=== PATIENT | female | born 1955 ===

== ENCOUNTER 2016-10-06 11:58 | Inpatient (IN) ==
[2016-10-06] MEDS ORDERED: DILTIAZEM 50 MG/10 ML VIAL IV STA (12:37)
--- NOTE | 2016-10-06 12:40 | Emergency Department Note ---
Pernell Reynolds Rolonda, am scribing for, and in the presence of, Mook Ken MD 12: 38. Suellen Reynolds James D, MD, personally performed the services described in this documentation, ascribed by Neptali Gimenez in my presence, and it is both accurate and complete . Arrival - Arrival Chief Complaint: Chest Pain ED Nursing Triage Note: pt states that she started hurting in the center of her chest today, reports shortness of breath with exertion. Mode of Arrival: Stretcher Limitations: No Limitations Source: Patient, Old Records Reviewed, RN Notes Reviewed - History of Present Illness HPI Narrative: Pt is a 61 y/o who presents to the ED via EMS for further evaluation of mid chest pain with an onset of today. Pt has a PMHX of HTN. She states that she has SOB with the chest pain. SHe confirms associated sxs of heart palpitations but denies N/V and diaphoresis. No other complaint/pain in ED. Onset (ago): hour(s) Consistency: constant Severity: moderate Severity scale (1-10): 4 Allergies/Adverse Reactions: Allergies Allergy/AdvReac Type Severity Reaction Status Date / Time No Known Allergies Allergy Unverified 10/06/16 12:14 Home Medications: Home Medications Medication Instructions Recorded Confirmed Type Albuterol Inhaler [Proventil 2 puff INH DAILY PRN 10/06/16 10/06/16 History Inhaler] Cefuroxime Tab [Ceftin] 250 mg PO BID 10/06/16 10/06/16 History Chlorthalidone 25 mg PO BID 10/06/16 10/06/16 History Fenofibrate [Tricor] 145 mg PO DAILY 10/06/16 10/06/16 History Gabapentin 600 mg PO BEDTIME 10/06/16 10/06/16 History Insulin Detemir [Levemir FlexPen] 45 unit SUBCUT DAILY 10/06/16 10/06/16 History Ipratropium/Albuterol Sulfate 3 ml IH Q4H PRN 10/06/16 10/06/16 History [Iprat-Albut 0.5-3(2.5) mg/3 ml] Metoprolol Succinate Xl [Toprol Xl] 100 mg PO BEDTIME 10/06/16 10/06/16 History Omeprazole [Prilosec] 20 mg PO DAILY 10/06/16 10/06/16 History Saxagliptin HCl [Onglyza] 5 mg PO DAILY 10/06/16 10/06/16 History Review of System - Review of System Constitutional: Absent: diaphoresis Eyes: Absent: pain Head/Ears/Nose/Throat: Absent: earache Respiratory: Present: respiratory distress. Absent: cough Cardiovascular: Present: chest pain, palpitations Gastrointestinal: Present: abdominal pain. Absent: vomiting Genitourinary female: Absent: abnormal menses, dysuria Musculoskeletal: Present: joint swelling. Absent: arm pain, back pain, leg pain , neck pain Skin: Absent: rash Neurological: Absent: headache, numbness Psychiatric: Absent: anxiety Endocrine: Absent: cold intolerance Medical,Surgical,& Family Hx - Medical History Cardio: History of: Hypertension Endocrine: History of: Diabetes Mellitus (NIDDM) - Social History Smoking Status: Never smoker Type of Drug Use: None Exam Vital Signs: Vital Signs Temperature 98.3 F 10/06/16 13:16 Pulse Rate 95 H 10/06/16 13:16 Respiratory Rate 19 10/06/16 13:16 Blood Pressure 132/100 10/06/16 13:16 O2 Sat by Pulse Oximetry 98 10/06/16 13:16 GENERAL: This is a well-nourished well-developed female in no apparent distress. VITAL SIGNS: Reviewed HEENT: Head is atraumatic and normocephalic. Pupils are equal round react to light. Extraocular movements are intact. Oropharynx is benign with moist mucous membranes. NECK: Neck is soft and supple without tenderness. There are no masses. There is no lymphadenopathy. LUNGS: Lungs are clear to auscultation. Chest rises symmetrically. There is no chest wall tenderness. CV: Heart is irregularly irregular without murmurs rubs or gallops. ABDOMEN: Abdomen is soft, nontender to palpation. There are no abdominal abnormal masses palpated. There is no organomegaly. Bowel sounds are present and active. SKIN: Skin is warm and dry. No rash. EXTREMITIES: Patient has full range of motion without tenderness. There is 1+ pedal edema. NEUROLOGIC: Awake alert and oriented 4. Cranial nerves II through XII are grossly intact. Motor is 5 over 5 in all extremities bilaterally. Course Course Narrative: Patient was given Cardizem bolus and infusion in the emergency department. - Consultations Consultation #1: Discussed with Dr. Soria. Patient will be admitted to his service. Initial orders written for him. He will assume patient's care upon arrival to the [facility]. Time: 13:55 Results - Labs CBC & BMP: 10/06/16 12:30 10/06/16 12:30 Lab Results: I have reviewed the patients labs Labs: Laboratory Tests 10/06/16 12:30 Troponin I 0.617 H TSH 3rd Generation 2.920 - EKG EKG results: interpreted by ERMD - Impressions EKG: Atrial fib with RVR, rate 148, normal axis, low voltage QRS. - Diagnostic Findings Procedure: Chest x-ray: image reviewed by me (Mild cardiomegaly, left pleural effusion.) Disposition Clinical Impression: Atrial fibrillation with RVR, Essential hypertension Case discussed with: patient Disposition: Still a Patient Time of Disposition: 13:00
[2016-10-06] MEDS ORDERED: DILTIAZEM 50 MG/10 ML VIAL IV ONE (12:53)
[2016-10-06] MEDS ORDERED: SODIUM CHLORIDE 0.9% 100 ML IV ONE (12:53)
[2016-10-06] MEDS ORDERED: DILTIAZEM 100 MG VIAL.ADD IV ONE (12:53)
[2016-10-06 12:54] LABS: Basophils % 0.4 % (0.0-0.8); Eosinophils % 0.4 % (0.00-10.9); Hematocrit 41.7 VOL% (35.7-47.0); Hemoglobin 14.6 GM/DL (12.0-16.0); Immature Granulocytes % 0.1 %; Immature Granulocytes Absolute 0.01 #; Lymphocytes # 1.6 10*3/uL (1.4-4.0); Lymphocytes % 23.9 % (21.3-54.2); Mean Corpuscular Hemoglobin 32 PG (27-34); Mean Corpuscular Volume 90.1 FL (87-102); Mean Platelet Volume 11.5 FL (9.6-12.0); Monocytes # 0.4 10*3/uL (0.11-0.8); Monocytes % 6.4 % (1.7-12.7); Neutrophils # 4.7 10*3/uL (1.4-7.4); Neutrophils % 68.8 % (38.7-73.9); Platelet Count 180 T/CUMM (130-400); Red Blood Count 4.63 MC/CUMM (3.8-5.5); Red Cell Distribution Width 13.5 % (9.3-17.3); White Blood Count 6.9 T/CUMM (4-12)
[2016-10-06] MEDS: DILTIAZEM INJ 100 MG in SODIUM CHLORIDE 0.9% 100 ML IV SCH ×2 (12:58→20:02)
[2016-10-06 13:04] LABS: INR 1.1; PT Patient Result 11.9 SECS; Partial Thromboplastin Time 27.3 SECS (0-40)
--- NOTE | 2016-10-06 13:05 | XRay Report ---
XR chest 1V portable Indication: Shortness of breath Comparison: None available Findings: The heart and mediastinum are stable in size and configuration. The pulmonary vascularity is slightly increased with bilateral increased interstitial lung density. No other lung infiltrates, effusions, pneumothorax or other abnormality is demonstrated. Impression: Findings suggest mild cardiac decompensation. PROCEDURE INTERPRETED AT [facility] DEPARTMENT OF RADIOLOGY Final Report Signed by: Dr. Fadi May
[2016-10-06 13:29] LABS: Free T4 (Free Thyroxine) 1.34 NG/DL (0.76-1.46); Magnesium 1.8 MG/DL (1.8-2.4)
[2016-10-06 13:36] LABS: Albumin 3.2 G/DL (3.4-5.0); Bilirubin,Total 1.3 MG/DL (0.2-1.0); Calcium 8.7 MG/DL (8.5-10.1); Osmolality,Calculated 288.3 MOS/KG (273-304); Potassium 3.9 MMOL/L (3.5-5.1); Thyroid Stimulating Hormone 2.92 uIU/ml (0.358-3.74); Total Protein 6.9 G/DL (6.4-8.3); Troponin I Only 0.617 NG/ML (0.00-0.045)
[2016-10-06] MEDS ORDERED: ENOXAPARIN 100 MG/ML SYRINGE SUBCUT STA (13:59)
[2016-10-06 14:02] LABS: Barbiturates Screen,Urine Negative (Negative); Benzodiazepines Screen,Urine Negative (Negative); Cannabinoid Screen,Urine Negative (Negative); Opiate Screen,Urine Negative (Negative); Phencyclidine Screen,Urine Negative (Negative)
[2016-10-06] MEDS ORDERED: POTASSIUM CHLORIDE 20 MEQ TABLET PO PRN (14:20)
[2016-10-06] MEDS ORDERED: MAGNESIUM SULF RIDER 2 GM in PREMIX 1 EACH IV PRN ×2 (14:21→16:31)
[2016-10-06] MEDS ORDERED: MAGNESIUM SULF RIDER 4 GM in PREMIX 1 EACH IV PRN ×2 (14:21→16:31)
[2016-10-06] MEDS ORDERED: ENOXAPARIN 120 MG/0.8 ML SYRINGE SUBCUT ONE (14:24)
[2016-10-06 14:45] LABS: Free T4 (Free Thyroxine) 1.35 NG/DL (0.76-1.46); Thyroid Stimulating Hormone 2.86 uIU/ml (0.358-3.74)
--- NOTE | 2016-10-06 15:30 | EKG Report ---
Stationary ECG Study [facility] ER Test Date: 10/06/2016 12:32:14 PM Pat Name: JANICE UMANA Department: Room: EDWAIT Gender: F Business Applications Specialist: : [id number] Requested by: Mook Peterson Order Number: [id number] Reading MD: LOVE AVELAR Intervals [place] Rate: 148 P: 999 ID: 0 QRS: 62 QRSD: 97 T: 0 QT: 263 QTc: 348 Interpretive Statements ATRIAL FIBRILLATION WITH RAPID VENTRICULAR RESPONSE WITH ABERRANT CONDUCTION LOW QRS VOLTAGE IN EXTREMITY LEADS POSSIBLE ANTERIOR MYOCARDIAL INFARCTION, OF INDETERMINATE AGE Electronically Signed On 10-06-16 15:55:35 CDT by LOVE AVELAR [email or web address]
--- NOTE | 2016-10-06 16:18 | Cardiology History & Physical ---
<Sayda Russ - Last Filed: 10/06/16 16:24> Assessment and Plan - Time spent with patient Time spent with patient: Greater than 30 minutes (1) Atrial fibrillation with RVR Status: Acute Assessment and plan: See plan of care listed below. Current Visit: Yes (2) Congestive heart failure Status: Acute Assessment and plan: See plan of care listed below. Current Visit: Yes (3) Diabetes Status: Chronic Assessment and plan: See plan of care listed below. Current Visit: Yes Qualifiers: Diabetes mellitus type: type 2 (4) Hyperlipidemia Status: Chronic Assessment and plan: See plan of care listed below. Current Visit: Yes (5) Obesity Status: Chronic Assessment and plan: See plan of care listed below. Current Visit: Yes Qualifiers: Body mass index: BMI 40.0-44.9 (6) GERD (gastroesophageal reflux disease) Status: Chronic Assessment and plan: See plan of care listed below. Current Visit: Yes (7) Former smoker Status: Chronic Assessment and plan: See plan of care listed below. Current Visit: Yes (8) Dyspnea Status: Chronic Assessment and plan: See plan of care listed below. Current Visit: Yes Qualifiers: Dyspnea type: dyspnea on exertion Qualified Code(s): R06.09 - Other forms of dyspnea (9) Snoring Status: Acute Assessment and plan: See plan of care listed below. Current Visit: Yes (10) Daytime sleepiness Status: Acute Assessment and plan: See plan of care listed below. Current Visit: Yes (11) Essential hypertension Status: Chronic Assessment and plan: See plan of care listed below. Current Visit: Yes History of Present Illness Chief complaint: Chest pain, shortness of breath and palpitations History of present illness: Delivery Technician: Dr. Soria (new) PCP: , Dr. Eid Ms. Light is a 61 year old female without known history of coronary artery disease, not routinely followed by cardiology. Patient has cardiac risk factors significant for diabetes, hyperlipidemia, hypertension, obesity, sedentary lifestyle, advanced age and former smoker (quit last year). Patient has a past medical history of chronic dyspnea, GERD and congestive heart failure. Patient reports that she was just recently diagnosed with congestive heart failure 2 months ago at [facility]. Per patient report, she has never undergone heart catheterization or stress testing. Patient presented to [facility] with complaint of chest pain, shortness of breath and palpitations. She developed sharp, midsternal chest pain while sleeping early this morning. She reports that her chest pain has been ongoing since that time. Nonradiating. Associated with shortness of breath and palpitations/heart racing. No exertional component. Denies diaphoresis, nausea and vomiting. Unable to identify any specific alleviating or aggravating factors. Not worsened with activity. She does have chronic dyspnea for which she takes inhalers for. She reports that her dyspnea improves with use of her inhalers. She confirms dyspnea on exertion, easy fatigability, orthopnea and lower extremity swelling. Her daughter is at bedside reports that she has had chronic lower extremity swelling for the past several years. Daughter reports that she is not very active and tires out very easily. She cannot even take a shower without becoming significantly short of breath. Can only walk very short distances before having to take rest break. She has significant orthopnea. Has a hospital bed at home so she can sleep at an incline. Patient symptoms are concerning to her so she felt that she needed to be further evaluated in the emergency department. Upon arrival to the ER, she was noted to be in atrial fibrillation with rapid ventricular response. Heart rates in the 140s. She was given a 10 mg bolus of diltiazem and was subsequently started on diltiazem infusion. Cardiology has been asked to admit patient. She will be admitted under cardiology's service and housed in the telemetry unit. Of note, patient confirms that she snores nightly. She also admits to significant daytime sleepiness. Takes multiple naps daily. Obese, BMI 40.3. I will consult Dr. Quevedo as patient has symptoms concerning for sleep apnea. Patient was seen and examined in the emergency department. She continues to be in atrial fibrillation with rapid ventricular response. Heart rates currently ranging from 110-120. Diltiazem infusion at 10 mg an hour. Patient is currently without chest pain, heaviness and tightness. Chest x-ray does reveal congestive heart failure. BNP 410. Will diurese with IV Lasix and order echocardiogram. Strict I's and O's and daily weights. Her atrial fibrillation is new onset. Patient will be admitted to the telemetry unit. Continue IV diltiazem. Will attempt to transition to p.o. diltiazem tomorrow if heart rates are controlled. Thyroid studies normal. Electrolytes within acceptable limits. Will replace to keep potassium greater than 4 and magnesium greater than 2. Vitamin C has been initiated. Patient does confirm snoring, daytime sleepiness and is obese with BMI of 40. This could very well be contributing to her atrial fibrillation. Dr. Quevedo will be consulted. CHADS VASC score 4. Patient denies any contraindications to anticoagulation. Received therapeutic dose Lovenox in the emergency department. She will need chronic anticoagulation prior to discharge. I will discuss with Dr. Soria and await his additional recommendations. ASSESSMENT/PLAN 1. ATRIAL FIBRILLATION WITH RAPID VENTRICULAR RESPONSE - New onset. Patient will be admitted to the telemetry unit. Continue IV diltiazem. Will attempt to transition to p.o. diltiazem tomorrow if heart rates are controlled. Thyroid studies normal. Electrolytes within acceptable limits. Will replace to keep potassium greater than 4 and magnesium greater than 2. Vitamin C has been initiated. Patient does confirm snoring, daytime sleepiness and is obese with BMI of 40. This could very well be contributing to her atrial fibrillation. Dr. Quevedo will be consulted. CHADS VASC score 4. Patient denies any contraindications to anticoagulation. Received therapeutic dose Lovenox in the emergency department. She will need chronic anticoagulation prior to discharge. I will discuss with Dr. Soria and await his additional recommendations. 2. ACUTE CONGESTIVE HEART FAILURE - Unknown etiology. Suspect diastolic dysfunction secondary to atrial fibrillation. BNP 410. Echocardiogram has been ordered. We will diurese with Lasix 40 mg IV twice daily has been initiated. Monitor renal function with daily BMP. Strict I's and O's and daily weights. Further recommendations to follow after echocardiogram has been reviewed. 3. HYPERTENSION - Will reinitiate patient's home medications. Monitor blood pressure and adjust as needed throughout her hospitalization. 4. DIABETES - We will continue her home medication regimen. Hemoglobin A1c ordered. Accu-Cheks before meals and at bedtime. 5. HYPERLIPIDEMIA - Continue lipid-lowering agent. Lipid panel in the a.m. 6. OBESITY - Weight loss encouraged. 7. GERD - Continue PPI. 8. FORMER SMOKER - Quit smoking 1 year ago 9. CHRONIC DYSPNEA - Continue breathing treatments. Echocardiogram. Home Medications Medication Instructions Recorded Confirmed Type Albuterol Inhaler [Proventil 2 puff INH DAILY PRN 10/06/16 10/06/16 History Inhaler] Chlorthalidone 25 mg PO BID 10/06/16 10/06/16 History Fenofibrate [Tricor] 145 mg PO DAILY 10/06/16 10/06/16 History Gabapentin 600 mg PO BEDTIME 10/06/16 10/06/16 History Insulin Detemir [Levemir FlexPen] 45 unit SUBCUT DAILY 10/06/16 10/06/16 History Ipratropium/Albuterol Sulfate 3 ml IH Q4H PRN 10/06/16 10/06/16 History [Iprat-Albut 0.5-3(2.5) mg/3 ml] Metoprolol Succinate Xl [Toprol Xl] 100 mg PO BEDTIME 10/06/16 10/06/16 History Omeprazole [Prilosec] 20 mg PO DAILY 10/06/16 10/06/16 History Saxagliptin HCl [Onglyza] 5 mg PO DAILY 10/06/16 10/06/16 History Allergies Allergy/AdvReac Type Severity Reaction Status Date / Time No Known Allergies Allergy Unverified 10/06/16 12:14 - Constitutional Constitutional: Present: fatigue, lethargy, malaise, weakness. Absent: chills, fever(s), weight gain, weight loss - Cardiovascular Cardiovascular: Present: as per HPI, chest pain at rest, dyspnea, dyspnea on exertion, edema, orthopnea, palpitations, PND. Absent: claudication, diaphoresis, radiating jaw, neck or arm pain, lightheadedness - Respiratory Respiratory: Present: as per HPI, cough, dyspnea, dyspnea on exertion. Absent: hemoptysis, wheezing, snoring, pain on inspiration, change in phlegm color - Gastrointestinal Gastrointestinal: Present: as per HPI. Absent: hematemesis, hematochezia, loose stools, melena, nausea, vomiting - Neurological Neurological: Absent: abnormal gait, abnormal speech, behavioral changes, dizziness, numbness, paresthesias, syncope Medical,Surgical,& Family Hx - Medical History Cardio: History of: CHF, Hypertension Endocrine: History of: Diabetes Mellitus (NIDDM), Dyslipidemia Gastrointestinal: History of: GERD - Social History Smoking Status: Former smoker Type of Drug Use: None Marital Status: Single Lives With:: Alone Functional capacity: independent ambulation Cardiology Physical Exam - Constitutional Vitals: Vital Signs Temp Pulse Resp BP Pulse Ox 98.3 F 103 H 21 122/97 95 07/25/17 13:16 10/06/16 15:00 10/06/16 15:00 10/06/16 15:00 10/06/16 15:00 Intake and Output 10/06/16 10/06/16 10/06/16 06:59 14:59 22:59 Other: Weight 257 lb Patient Weight 10/07/16 06:59 Weight 257 lb Exam: General: Appears well with no apparent distress. Pleasant and cooperative. Appears comfortable. HEENT: PERRL, normocephalic, atraumatic. Mucous membranes moist. No jaundice noted. Conjunctiva moist and clear, sclerae anicteric Neck: No JVD/HJR, no thyromegaly or lymphadenopathy noted. No carotid bruit appreciated Cardiac: Irregular rhythm. Tachycardia. No murmur rub or gallop. Lungs: Decreased breath sounds. Minimal bibasilar rales. Oxygen via nasal cannula. Abdomen: Soft, bowel sounds normoactive. Nontender and nondistended. No abdominal bruit or thrill noted. No masses noted. Extremities: No clubbing, cyanosis noted. 3+ lower extremity edema. Upper extremity pulses 2+. Lower extremity pulses 2+. Capillary refill less than 3 seconds. Skin: No unusual lesions or rashes. No skin breakdown appreciated. Neuro: Awake, alert and oriented 3. Moves all extremities well without hemiparesis or paralysis. No essential tremor is appreciated. Result/EKG - Labs CBC & BMP: 10/06/16 12:30 10/06/16 12:30 Lab Results: I have reviewed the past 24 hour labs Labs: Laboratory Results - last 24 hr 10/06/16 10/06/16 10/06/16 12:30 12:30 12:30 WBC 6.9 RBC 4.63 Hgb 14.6 Hct 41.7 MCV 90.1 MCH 32 MCHC 35.0 RDW 13.5 Plt Count 180 MPV 11.5 Neut % (Auto) 68.8 Lymph % (Auto) 23.9 [place] % (Auto) 6.4 Eos % (Auto) 0.4 Baso % (Auto) 0.4 Neut # (Auto) 4.7 Lymph # (Auto) 1.6 [place] # (Auto) 0.4 Eos # (Auto) 0.0 Baso # (Auto) 0.0 Immature Gran % 0.1 Nucleated RBC % 0.0 Immature Gran # 0.01 Nucleated RBCs # 0.00 INR 1.1 PT Patient/Control Mix 11.9 Circ Anticoag PTT 27.3 Sodium Potassium Chloride Carbon Dioxide Anion Gap BUN Creatinine GFR Calculation BUN/Creatinine Ratio Glucose Hemoglobin A1c Calculated Osmolality Calcium Magnesium 1.8 Total Bilirubin AST ALT Alkaline Phosphatase Troponin I B-Natriuretic Peptide Total Protein Albumin Globulin Albumin/Globulin Ratio Free T4 1.34 TSH 3rd Generation Urine Opiates Screen Ur Barbiturates Screen Ur Phencyclidine Scrn U Amphetamine/Methamph U Benzodiazepines Scrn U Cocaine Metab Screen U Cannabinoids Screen 10/06/16 10/06/16 10/06/16 12:30 12:30 12:30 WBC RBC Hgb Hct MCV MCH MCHC RDW Plt Count MPV Neut % (Auto) Lymph % (Auto) [place] % (Auto) Eos % (Auto) Baso % (Auto) Neut # (Auto) Lymph # (Auto) [place] # (Auto) Eos # (Auto) Baso # (Auto) Immature Gran % Nucleated RBC % Immature Gran # Nucleated RBCs # INR PT Patient/Control Mix Circ Anticoag PTT Sodium 141 Potassium 3.9 Chloride 107 Carbon Dioxide 25 Anion Gap 12.9 BUN 18 Creatinine 1.20 H GFR Calculation 63 BUN/Creatinine Ratio 15.00 Glucose 207 H Hemoglobin A1c Calculated Osmolality 288.3 Calcium 8.7 Magnesium Total Bilirubin 1.30 H AST 28 ALT 29 Alkaline Phosphatase 148 H Troponin I 0.617 H B-Natriuretic Peptide Total Protein 6.9 Albumin 3.2 L Globulin 3.7 H Albumin/Globulin Ratio 0.8 L Free T4 1.35 TSH 3rd Generation 2.920 2.860 Urine Opiates Screen Negative Ur Barbiturates Screen Negative Ur Phencyclidine Scrn Negative U Amphetamine/Methamph Negative U Benzodiazepines Scrn Negative U Cocaine Metab Screen Negative U Cannabinoids Screen Negative 10/06/16 10/06/16 12:30 12:30 WBC RBC Hgb Hct MCV MCH MCHC RDW Plt Count MPV Neut % (Auto) Lymph % (Auto) [place] % (Auto) Eos % (Auto) Baso % (Auto) Neut # (Auto) Lymph # (Auto) [place] # (Auto) Eos # (Auto) Baso # (Auto) Immature Gran % Nucleated RBC % Immature Gran # Nucleated RBCs # INR PT Patient/Control Mix Circ Anticoag PTT Sodium Potassium Chloride Carbon Dioxide Anion Gap BUN Creatinine GFR Calculation BUN/Creatinine Ratio Glucose Hemoglobin A1c 10.3 H Calculated Osmolality Calcium Magnesium Total Bilirubin AST ALT Alkaline Phosphatase Troponin I B-Natriuretic Peptide 410 H Total Protein Albumin Globulin Albumin/Globulin Ratio Free T4 TSH 3rd Generation Urine Opiates Screen Ur Barbiturates Screen Ur Phencyclidine Scrn U Amphetamine/Methamph U Benzodiazepines Scrn U Cocaine Metab Screen U Cannabinoids Screen - EKG EKG results: interpreted by ms EKG shows: atrial fibrillation <TaishaGarrick price - Last Filed: 10/06/16 17:08> History of Present Illness History of present illness: Cardiology addendum Patient examined chart reviewed and discussed with her children and nurse Sayda Russ RN. 61-year-old woman admitted with congestive heart failure and rapid atrial fibrillation. Chest x-ray shows cardiomegaly and CHF. BNP level 410. EKG shows Atrial fibrillation with late transition and diffuse ST-T wave changes. Patient was given show by ER 2 months ago atrial fibrillation and CHF. She was started on metoprolol and chlorthalidone. She has felt the [facility]. She has chronic dyspnea which is gotten worse. The patient sleeps in a hospital bed and keeps her head elevated 30. She has nocturia 490. She does have restless legs. She snores loudly and has daytime sleepiness. ZOLTAN suspected. She quit smoking 1 year ago but has been smoking 1 pack per day of age 23. She quit alcohol 3 months ago because of increasing shortness of breath. Her BMI is 40 Longtime diabetic on Levemir insulin 45 units daily and Onglyza 5 mg daily. Hemoglobin A1c level 10.3. GE reflux on Prilosec. No history of exertional chest pain but she does tire easily and has poor exercise tolerance. Plan IV Cardizem bolus and infusion 40 mg Lasix IV twice daily Eliquis 5 mg twice daily Lisinopril 2.5 milligrams twice daily Metoprolol 100 mg daily Echo Doppler in a.m. Consult Dr. Quevedo for outpatient sleep study Accu-Chek blood sugar Supplemental O2 as needed Cardiology Physical Exam - Constitutional Vitals: Vital Signs Temp Pulse Resp BP Pulse Ox 98.1 F 107 H 18 109/75 95 10/06/16 16:32 10/06/16 16:32 10/06/16 16:32 10/06/16 16:32 10/06/16 16:32 Intake and Output 10/06/16 10/06/16 10/06/16 07:59 15:59 23:59 Other: Weight 116.573 kg Patient Weight 10/06/16 23:59 Weight 116.573 kg Result/EKG - Labs CBC & BMP: 10/06/16 12:30 10/06/16 12:30 Labs: Laboratory Results - last 24 hr 10/06/16 10/06/16 10/06/16 12:30 12:30 12:30 WBC 6.9 RBC 4.63 Hgb 14.6 Hct 41.7 MCV 90.1 MCH 32 MCHC 35.0 RDW 13.5 Plt Count 180 MPV 11.5 Neut % (Auto) 68.8 Lymph % (Auto) 23.9 [place] % (Auto) 6.4 Eos % (Auto) 0.4 Baso % (Auto) 0.4 Neut # (Auto) 4.7 Lymph # (Auto) 1.6 [place] # (Auto) 0.4 Eos # (Auto) 0.0 Baso # (Auto) 0.0 Immature Gran % 0.1 Nucleated RBC % 0.0 Immature Gran # 0.01 Nucleated RBCs # 0.00 INR 1.1 PT Patient/Control Mix 11.9 Circ Anticoag PTT 27.3 Sodium Potassium Chloride Carbon Dioxide Anion Gap BUN Creatinine GFR Calculation BUN/Creatinine Ratio Glucose Hemoglobin A1c Calculated Osmolality Calcium Magnesium 1.8 Total Bilirubin AST ALT Alkaline Phosphatase Troponin I B-Natriuretic Peptide Total Protein Albumin Globulin Albumin/Globulin Ratio Free T4 1.34 TSH 3rd Generation Urine Opiates Screen Ur Barbiturates Screen Ur Phencyclidine Scrn U Amphetamine/Methamph U Benzodiazepines Scrn U Cocaine Metab Screen U Cannabinoids Screen 10/06/16 10/06/16 10/06/16 12:30 12:30 12:30 WBC RBC Hgb Hct MCV MCH MCHC RDW Plt Count MPV Neut % (Auto) Lymph % (Auto) [place] % (Auto) Eos % (Auto) Baso % (Auto) Neut # (Auto) Lymph # (Auto) [place] # (Auto) Eos # (Auto) Baso # (Auto) Immature Gran % Nucleated RBC % Immature Gran # Nucleated RBCs # INR PT Patient/Control Mix Circ Anticoag PTT Sodium 141 Potassium 3.9 Chloride 107 Carbon Dioxide 25 Anion Gap 12.9 BUN 18 Creatinine 1.20 H GFR Calculation 63 BUN/Creatinine Ratio 15.00 Glucose 207 H Hemoglobin A1c Calculated Osmolality 288.3 Calcium 8.7 Magnesium Total Bilirubin 1.30 H AST 28 ALT 29 Alkaline Phosphatase 148 H Troponin I 0.617 H B-Natriuretic Peptide Total Protein 6.9 Albumin 3.2 L Globulin 3.7 H Albumin/Globulin Ratio 0.8 L Free T4 1.35 TSH 3rd Generation 2.920 2.860 Urine Opiates Screen Negative Ur Barbiturates Screen Negative Ur Phencyclidine Scrn Negative U Amphetamine/Methamph Negative U Benzodiazepines Scrn Negative U Cocaine Metab Screen Negative U Cannabinoids Screen Negative 10/06/16 10/06/16 12:30 12:30 WBC RBC Hgb Hct MCV MCH MCHC RDW Plt Count MPV Neut % (Auto) Lymph % (Auto) [place] % (Auto) Eos % (Auto) Baso % (Auto) Neut # (Auto) Lymph # (Auto) [place] # (Auto) Eos # (Auto) Baso # (Auto) Immature Gran % Nucleated RBC % Immature Gran # Nucleated RBCs # INR PT Patient/Control Mix Circ Anticoag PTT Sodium Potassium Chloride Carbon Dioxide Anion Gap BUN Creatinine GFR Calculation BUN/Creatinine Ratio Glucose Hemoglobin A1c 10.3 H Calculated Osmolality Calcium Magnesium Total Bilirubin AST ALT Alkaline Phosphatase Troponin I B-Natriuretic Peptide 410 H Total Protein Albumin Globulin Albumin/Globulin Ratio Free T4 TSH 3rd Generation Urine Opiates Screen Ur Barbiturates Screen Ur Phencyclidine Scrn U Amphetamine/Methamph U Benzodiazepines Scrn U Cocaine Metab Screen U Cannabinoids Screen
[2016-10-06] MEDS ORDERED: ALBUTEROL/IPRATROPIUM 3 ML NEB RESP TX PRN (16:19)
[2016-10-06] MEDS ORDERED: GLUCAGON 1 MG VIAL IM PRN (16:31)
[2016-10-06] MEDS ORDERED: DEXTROSE 50% 25 GM/50 ML VIAL IV PRN (16:31)
[2016-10-06] MEDS ORDERED: SODIUM CHLORIDE 0.9% 1,000 ML IV SCH (17:00)
[2016-10-06] MEDS ORDERED: ALBUTEROL 2.5 MG/3 ML NEB RESP TX PRN (17:00)
[2016-10-06] MEDS: ASCORBIC ACID 500 MG TABLET PO SCH (18:22)
[2016-10-06] MEDS: FUROSEMIDE 40 MG/4 ML VIAL IV SCH (18:22)
[2016-10-06] MEDS: INSULIN LISPRO 100 UNIT/ML SUBCUT SCH ×2 (18:23→22:17)
[2016-10-06] MEDS ORDERED: AMIODARONE INJ 150 MG in DEXTROSE 5% 100 ML IV ONE (19:35)
--- NOTE | 2016-10-06 19:55 | ECHO Report ---
[facility] Exam Date: 10/06/2016 15:43 Referring Physician: Technologist: jose a Nicole ARDMS, RVT Age: 61 Ht (in): 67 Wt (lb): 257 Gender: F Exam Location: [facility] Echo Indications: Atrial fibrillation, Chest pain, unspecified BP: 127 / 87 HR: 158 Rhythm: Atrial fibrillation Technical Quality: Fair IMPRESSIONS EF 15-20 %,severe global hypokinesis. Mildly increased left ventricular cavity size. The right ventricle is normal in size and function. Moderately increased right atrial size. Severely increased left atrial size. Mildly thickened mitral valve. Trace mitral valve regurgitation. Aortic valve sclerosis. No aortic valve regurgitation. Moderate tricuspid valve regurgitation. PAP50 mmHG. Pulmonic valve not well visualized. Normal pericardium without effusion. Normal ascending aorta dimension. MEASUREMENTS (Male / Female) Normal Values 2D ECHO LV Diastolic Diameter PLAX 5.6 cm 4.2 - 5.9 / 3.9 - 5.3 cm LV Systolic Diameter PLAX 5.0 cm LV Fractional Shortening PLAX 10.6 % IVS Diastolic Thickness 1.0 cm 0.6 - 1.0 / 0.6 - 0.9 cm LVPW Diastolic Thickness 1.1 cm 0.6 - 1.0 / 0.6 - 0.9 cm RV Internal Dim ED PLAX 3.9 cm Aortic Root Diameter 3.4 cm LA Systolic Diameter LX 4.5 cm 3.0 - 4.0 / 2.7 - 3.8 cm DOPPLER TR Peak Velocity 305.0 cm/s TR Peak Gradient 37.2 mmHg FINDINGS Left Ventricle Mildly increased left ventricular cavity size. EF 15-20 %,severe global hypokinesis. Right Ventricle The right ventricle is normal in size and function. Right Atrium Moderately increased right atrial size. Left Atrium Severely increased left atrial size. Mitral Valve Mildly thickened mitral valve. Trace mitral valve regurgitation. Aortic Valve Aortic valve sclerosis. No aortic valve regurgitation. Tricuspid Valve Morphologically normal tricuspid valve. Moderate tricuspid valve regurgitation. PAP50 mmHG. Pulmonic Valve Pulmonic valve not well visualized. Pericardium Normal pericardium without effusion. Aorta Normal ascending aorta dimension. Mook Soria (Electronically Signed) Final Date: 06 October 2016 19:55
[2016-10-06] MEDS ORDERED: AMIODARONE INJ 450 MG in DEXTROSE 5% 241 ML IV SCH (20:00)
[2016-10-06] MEDS ORDERED: METOPROLOL SUCCINATE XL 100 MG TABLET PO SCH (21:00)
[2016-10-06 21:38] LABS: CKMB % 6.9 %
[2016-10-06 21:39] LABS: Troponin I Only 24.9 NG/ML (0.00-0.045)
[2016-10-06] MEDS: LISINOPRIL 2.5 MG TABLET PO SCH (22:10)
[2016-10-06] MEDS: GABAPENTIN 300 MG CAPSULE PO SCH (22:18)
[2016-10-06] MEDS: APIXABAN 5 MG TABLET PO SCH (22:18)
[2016-10-07] MEDS: DILTIAZEM INJ 100 MG in SODIUM CHLORIDE 0.9% 100 ML IV SCH (00:44)
[2016-10-07] MEDS: AMIODARONE INJ 450 MG in DEXTROSE 5% 241 ML IV SCH ×2 (04:13→19:32)
[2016-10-07 05:26] LABS: Basophils % 0.4 % (0.0-0.8); Eosinophils % 0.3 % (0.00-10.9); Hematocrit 40.5 VOL% (35.7-47.0); Hemoglobin 13.6 GM/DL (12.0-16.0); Immature Granulocytes % 0.3 %; Immature Granulocytes Absolute 0.02 #; Lymphocytes # 2.2 10*3/uL (1.4-4.0); Lymphocytes % 30.2 % (21.3-54.2); Mean Corpuscular HGB Conc 33.6 GM/DL (32-36); Mean Corpuscular Hemoglobin 31 PG (27-34); Mean Corpuscular Volume 91.4 FL (87-102); Mean Platelet Volume 12.3 FL (9.6-12.0); Monocytes # 0.6 10*3/uL (0.11-0.8); Monocytes % 8.8 % (1.7-12.7); NRBC # 0.03 10*3/uL; Neutrophils # 4.4 10*3/uL (1.4-7.4); Platelet Count 207 T/CUMM (130-400); Red Blood Count 4.43 MC/CUMM (3.8-5.5); Red Cell Distribution Width 13.9 % (9.3-17.3); White Blood Count 7.3 T/CUMM (4-12)
[2016-10-07 06:01] LABS: Calcium 8.3 MG/DL (8.5-10.1); Osmolality,Calculated 282.7 MOS/KG (273-304); Potassium 3.9 MMOL/L (3.5-5.1)
[2016-10-07 06:05] LABS: Risk Ratio 3.31
[2016-10-07 06:20] LABS: CKMB % 5.8 %
[2016-10-07 06:22] LABS: Troponin I Only 47.1 NG/ML (0.00-0.045)
--- NOTE | 2016-10-07 06:45 | EKG Report ---
Stationary ECG Study [facility] Test Date: 10/07/2016 6:46:23 AM Pat Name: JANICE UMANA Department: Room: 125 Gender: F Tab Cutter: SARANYA : 1955 Requested by: Sayda Russ Order Number: [id number] Reading MD: LOVE AVELAR Intervals [place] Rate: 93 P: 999 AK: 0 QRS: 105 QRSD: 90 T: 118 QT: 371 QTc: 422 Interpretive Statements ATRIAL FIBRILLATION RIGHT AXIS DEVIATION LOW QRS VOLTAGE ANTEROSEPTAL MYOCARDIAL INFARCTION, PREVIOUSLY CITED Electronically Signed On 10-07-16 12:55:07 CDT by LOVE AVELAR [email or web address]
--- NOTE | 2016-10-07 07:06 | Cardiology Progress Note ---
Cardiology - PN: Subj Interval history: Cardiology note 61-year-old woman admitted with congestive heart failure and rapid atrial fibrillation. Currently on IV amiodarone. Telemetry shows atrial fib ventricular rate around 90 Blood pressure 110/74 O2 sat 95% on 2 L. Breathing a little easier. No chest pain. 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 Plan Eliquis 5 mg twice daily Lasix 40 mg IV twice daily Lisinopril 2.5 mg twice daily BMP in a.m. Dr. Quevedo to see Her children Adan and Martha are not present at this time. Will need to discuss cardiac cath with them. DC metoprolol. Begin carvedilol 6.25 mg twice daily Continue IV amiodarone infusion Exam (Progress Note) - Constitutional Vitals: Period Temp Pulse Resp BP Sys/Sosa Pulse Ox Last 24 Hr 96.8 F-98.3 F 70-163 12-28 82-132/65-100 87-98 Result/EKG - Labs CBC & BMP: 10/07/16 04:44 10/07/16 04:44 Labs: Laboratory Results - last 24 hr 10/06/16 10/06/16 10/06/16 12:30 12:30 12:30 WBC 6.9 RBC 4.63 Hgb 14.6 Hct 41.7 MCV 90.1 MCH 32 MCHC 35.0 RDW 13.5 Plt Count 180 MPV 11.5 Neut % (Auto) 68.8 Lymph % (Auto) 23.9 [place] % (Auto) 6.4 Eos % (Auto) 0.4 Baso % (Auto) 0.4 Neut # (Auto) 4.7 Lymph # (Auto) 1.6 [place] # (Auto) 0.4 Eos # (Auto) 0.0 Baso # (Auto) 0.0 Immature Gran % 0.1 Nucleated RBC % 0.0 Immature Gran # 0.01 Nucleated RBCs # 0.00 INR 1.1 PT Patient/Control Mix 11.9 Circ Anticoag PTT 27.3 Sodium Potassium Chloride Carbon Dioxide Anion Gap BUN Creatinine GFR Calculation BUN/Creatinine Ratio Glucose POC Glucose Hemoglobin A1c Calculated Osmolality Calcium Magnesium 1.8 Total Bilirubin AST ALT Alkaline Phosphatase Total Creatine Kinase CK-MB (CK-2) CK and CKMB Interp Troponin I B-Natriuretic Peptide Total Protein Albumin Globulin Albumin/Globulin Ratio Triglycerides Cholesterol LDL Cholesterol VLDL Cholesterol HDL Cholesterol Heart Disease Risk Ratio Free T4 1.34 TSH 3rd Generation Urine Opiates Screen Ur Barbiturates Screen Ur Phencyclidine Scrn U Amphetamine/Methamph U Benzodiazepines Scrn U Cocaine Metab Screen U Cannabinoids Screen 10/06/16 10/06/16 10/06/16 12:30 12:30 12:30 WBC RBC Hgb Hct MCV MCH MCHC RDW Plt Count MPV Neut % (Auto) Lymph % (Auto) [place] % (Auto) Eos % (Auto) Baso % (Auto) Neut # (Auto) Lymph # (Auto) [place] # (Auto) Eos # (Auto) Baso # (Auto) Immature Gran % Nucleated RBC % Immature Gran # Nucleated RBCs # INR PT Patient/Control Mix Circ Anticoag PTT Sodium 141 Potassium 3.9 Chloride 107 Carbon Dioxide 25 Anion Gap 12.9 BUN 18 Creatinine 1.20 H GFR Calculation 63 BUN/Creatinine Ratio 15.00 Glucose 207 H POC Glucose Hemoglobin A1c Calculated Osmolality 288.3 Calcium 8.7 Magnesium Total Bilirubin 1.30 H AST 28 ALT 29 Alkaline Phosphatase 148 H Total Creatine Kinase CK-MB (CK-2) CK and CKMB Interp Troponin I 0.617 H B-Natriuretic Peptide Total Protein 6.9 Albumin 3.2 L Globulin 3.7 H Albumin/Globulin Ratio 0.8 L Triglycerides Cholesterol LDL Cholesterol VLDL Cholesterol HDL Cholesterol Heart Disease Risk Ratio Free T4 1.35 TSH 3rd Generation 2.920 2.860 Urine Opiates Screen Negative Ur Barbiturates Screen Negative Ur Phencyclidine Scrn Negative U Amphetamine/Methamph Negative U Benzodiazepines Scrn Negative U Cocaine Metab Screen Negative U Cannabinoids Screen Negative 10/06/16 10/06/16 10/06/16 12:30 12:30 17:17 WBC RBC Hgb Hct MCV MCH MCHC RDW Plt Count MPV Neut % (Auto) Lymph % (Auto) [place] % (Auto) Eos % (Auto) Baso % (Auto) Neut # (Auto) Lymph # (Auto) [place] # (Auto) Eos # (Auto) Baso # (Auto) Immature Gran % Nucleated RBC % Immature Gran # Nucleated RBCs # INR PT Patient/Control Mix Circ Anticoag PTT Sodium Potassium Chloride Carbon Dioxide Anion Gap BUN Creatinine GFR Calculation BUN/Creatinine Ratio Glucose POC Glucose 171 H Hemoglobin A1c 10.3 H Calculated Osmolality Calcium Magnesium Total Bilirubin AST ALT Alkaline Phosphatase Total Creatine Kinase CK-MB (CK-2) CK and CKMB Interp Troponin I B-Natriuretic Peptide 410 H Total Protein Albumin Globulin Albumin/Globulin Ratio Triglycerides Cholesterol LDL Cholesterol VLDL Cholesterol HDL Cholesterol Heart Disease Risk Ratio Free T4 TSH 3rd Generation Urine Opiates Screen Ur Barbiturates Screen Ur Phencyclidine Scrn U Amphetamine/Methamph U Benzodiazepines Scrn U Cocaine Metab Screen U Cannabinoids Screen 10/06/16 10/06/16 10/06/16 17:50 20:56 22:10 WBC RBC Hgb Hct MCV MCH MCHC RDW Plt Count MPV Neut % (Auto) Lymph % (Auto) [place] % (Auto) Eos % (Auto) Baso % (Auto) Neut # (Auto) Lymph # (Auto) [place] # (Auto) Eos # (Auto) Baso # (Auto) Immature Gran % Nucleated RBC % Immature Gran # Nucleated RBCs # INR PT Patient/Control Mix Circ Anticoag PTT Sodium Potassium Chloride Carbon Dioxide Anion Gap BUN Creatinine GFR Calculation BUN/Creatinine Ratio Glucose POC Glucose 205 H Hemoglobin A1c Calculated Osmolality Calcium Magnesium Total Bilirubin AST ALT Alkaline Phosphatase Total Creatine Kinase 779 H CK-MB (CK-2) 53.9 H CK and CKMB Interp 6.9 Troponin I 15.500 H D 24.900 H D B-Natriuretic Peptide Total Protein Albumin Globulin Albumin/Globulin Ratio Triglycerides Cholesterol LDL Cholesterol VLDL Cholesterol HDL Cholesterol Heart Disease Risk Ratio Free T4 TSH 3rd Generation Urine Opiates Screen Ur Barbiturates Screen Ur Phencyclidine Scrn U Amphetamine/Methamph U Benzodiazepines Scrn U Cocaine Metab Screen U Cannabinoids Screen 10/07/16 10/07/16 10/07/16 02:20 04:44 04:44 WBC 7.3 RBC 4.43 Hgb 13.6 Hct 40.5 MCV 91.4 MCH 31 MCHC 33.6 RDW 13.9 Plt Count 207 MPV 12.3 H Neut % (Auto) 60.0 Lymph % (Auto) 30.2 [place] % (Auto) 8.8 Eos % (Auto) 0.3 Baso % (Auto) 0.4 Neut # (Auto) 4.4 Lymph # (Auto) 2.2 [place] # (Auto) 0.6 Eos # (Auto) 0.0 Baso # (Auto) 0.0 Immature Gran % 0.3 Nucleated RBC % 0.4 Immature Gran # 0.02 Nucleated RBCs # 0.03 INR PT Patient/Control Mix Circ Anticoag PTT Sodium 138 Potassium 3.9 Chloride 102 Carbon Dioxide 24 Anion Gap 15.9 H BUN 22 H Creatinine 1.80 H GFR Calculation 39 BUN/Creatinine Ratio 12.00 Glucose 183 H POC Glucose Hemoglobin A1c Calculated Osmolality 282.7 Calcium 8.3 L Magnesium 2.0 Total Bilirubin AST ALT Alkaline Phosphatase Total Creatine Kinase CK-MB (CK-2) CK and CKMB Interp Troponin I 36.300 H D B-Natriuretic Peptide Total Protein Albumin Globulin Albumin/Globulin Ratio Triglycerides Cholesterol LDL Cholesterol VLDL Cholesterol HDL Cholesterol Heart Disease Risk Ratio Free T4 TSH 3rd Generation Urine Opiates Screen Ur Barbiturates Screen Ur Phencyclidine Scrn U Amphetamine/Methamph U Benzodiazepines Scrn U Cocaine Metab Screen U Cannabinoids Screen 10/07/16 10/07/16 04:44 04:44 WBC RBC Hgb Hct MCV MCH MCHC RDW Plt Count MPV Neut % (Auto) Lymph % (Auto) [place] % (Auto) Eos % (Auto) Baso % (Auto) Neut # (Auto) Lymph # (Auto) [place] # (Auto) Eos # (Auto) Baso # (Auto) Immature Gran % Nucleated RBC % Immature Gran # Nucleated RBCs # INR PT Patient/Control Mix Circ Anticoag PTT Sodium Potassium Chloride Carbon Dioxide Anion Gap BUN Creatinine GFR Calculation BUN/Creatinine Ratio Glucose POC Glucose Hemoglobin A1c Calculated Osmolality Calcium Magnesium Total Bilirubin AST ALT Alkaline Phosphatase Total Creatine Kinase 1099 H D CK-MB (CK-2) 63.9 H D CK and CKMB Interp 5.8 Troponin I 47.100 H D B-Natriuretic Peptide Total Protein Albumin Globulin Albumin/Globulin Ratio Triglycerides 100 Cholesterol 139 LDL Cholesterol 80.0 VLDL Cholesterol 20.0 HDL Cholesterol 42 Heart Disease Risk Ratio 3.31 Free T4 TSH 3rd Generation Urine Opiates Screen Ur Barbiturates Screen Ur Phencyclidine Scrn U Amphetamine/Methamph U Benzodiazepines Scrn U Cocaine Metab Screen U Cannabinoids Screen
[2016-10-07] MEDS: APIXABAN 5 MG TABLET PO SCH ×2 (08:49→22:08)
[2016-10-07] MEDS: PANTOPRAZOLE 40 MG TABLET PO SCH (08:49)
[2016-10-07] MEDS: ASCORBIC ACID 500 MG TABLET PO SCH (08:49)
[2016-10-07] MEDS: INSULIN LISPRO 100 UNIT/ML SUBCUT SCH ×4 (08:49→22:08)
[2016-10-07] MEDS: sitaGLIPtin 100 MG TABLET PO SCH (08:49)
[2016-10-07] MEDS: INSULIN GLARGINE 100 UNIT/ML SUBCUT SCH (08:49)
[2016-10-07] MEDS: FENOFIBRATE 145 MG TABLET PO SCH (08:49)
[2016-10-07] MEDS: FUROSEMIDE 40 MG/4 ML VIAL IV SCH ×2 (08:50→17:29)
[2016-10-07] MEDS: CARVEDILOL 6.25 MG TABLET PO SCH ×2 (08:50→22:08)
[2016-10-07] MEDS: LISINOPRIL 2.5 MG TABLET PO SCH ×2 (09:12→22:08)
[2016-10-07 14:13] LABS: CKMB % 4.6 %
[2016-10-07 14:16] LABS: Troponin I Only 53.9 NG/ML (0.00-0.045)
[2016-10-07 19:46] LABS: CKMB % 3.7 %
[2016-10-07 19:49] LABS: Troponin I Only 50.1 NG/ML (0.00-0.045)
[2016-10-07] MEDS: GABAPENTIN 300 MG CAPSULE PO SCH (22:08)
[2016-10-08 05:57] LABS: Basophils % 0.4 % (0.0-0.8); Eosinophils # 0.1 10*3/uL (0.0-0.87); Eosinophils % 0.7 % (0.00-10.9); Hematocrit 38.9 VOL% (35.7-47.0); Hemoglobin 13.2 GM/DL (12.0-16.0); Immature Granulocytes % 0.6 %; Immature Granulocytes Absolute 0.06 #; Lymphocytes # 2.9 10*3/uL (1.4-4.0); Lymphocytes % 29.4 % (21.3-54.2); Mean Corpuscular HGB Conc 33.9 GM/DL (32-36); Mean Corpuscular Hemoglobin 31 PG (27-34); Mean Corpuscular Volume 91.1 FL (87-102); Mean Platelet Volume 12.5 FL (9.6-12.0); Monocytes # 0.8 10*3/uL (0.11-0.8); Monocytes % 8.2 % (1.7-12.7); NRBC # 0.03 10*3/uL; Neutrophils % 60.7 % (38.7-73.9); Platelet Count 186 T/CUMM (130-400); Red Blood Count 4.27 MC/CUMM (3.8-5.5); Red Cell Distribution Width 13.8 % (9.3-17.3); White Blood Count 9.8 T/CUMM (4-12)
[2016-10-08 06:11] LABS: Calcium 7.9 MG/DL (8.5-10.1); Magnesium 1.8 MG/DL (1.8-2.4); Osmolality,Calculated 280.7 MOS/KG (273-304); Potassium 3.5 MMOL/L (3.5-5.1)
--- NOTE | 2016-10-08 07:04 | Cardiology Progress Note ---
Cardiology - PN: Subj Interval history: Cardiology note 61-year-old woman admitted with congestive heart failure and rapid atrial fibrillation. Currently on IV amiodarone ventricular rate 90-100 Echo shows ejection fraction of 15-20% with severely dilated left atrium, aortic valve sclerosis, moderate TR PA pressure 50 no effusion Blood pressure 100/72. O2 sat 96% on 2 L. Irregular rhythm no murmur. Decreased breath sounds with basilar crackles Abdomen soft benign. Femoral pulses are 2+ with left bruit. Lab data today White count 9.8 hemoglobin 13.2 hematocrit 38.9 Sodium 138 potassium 3.5 chloride 103 CO2 23 BUN 27 creatinine 1.80 glucose 112 Peak CPK 1088 peak troponin 53.9 Impression End-stage cardiomyopathy EF 15-20% Recurrent congestive heart failure Atrial fibrillation documented May 2069 [place] when she first presented with CHF Chronic dyspnea and exercise intolerance Obesity Longtime diabetic with poor control A1c level 10.3 GE reflux Former tobacco abuse ZOLTAN suspected Possible non-Q-wave [place] Plan Cardiac cath. I discussed the procedure with her children Adan and Martha yesterday. 40 mg Lasix IV twice daily Lisinopril 2.[address] Quevedo to see Pro time/INR Crestor 40 mg daily Exam (Progress Note) - Constitutional Vitals: Period Temp Pulse Resp BP Sys/Sosa Pulse Ox Last 24 Hr 96.6 F-97.2 F 86-115 12-24 87-120/56-95 90-96 Result/EKG - Labs CBC & BMP: 10/08/16 04:18 10/08/16 04:18 Labs: Laboratory Results - last 24 hr 10/07/16 10/07/16 10/07/16 07:00 10:58 13:04 WBC RBC Hgb Hct MCV MCH MCHC RDW Plt Count MPV Neut % (Auto) Lymph % (Auto) [place] % (Auto) Eos % (Auto) Baso % (Auto) Neut # (Auto) Lymph # (Auto) [place] # (Auto) Eos # (Auto) Baso # (Auto) Immature Gran % Nucleated RBC % Immature Gran # Nucleated RBCs # Sodium Potassium Chloride Carbon Dioxide Anion Gap BUN Creatinine GFR Calculation BUN/Creatinine Ratio Glucose POC Glucose 165 H 242 H Calculated Osmolality Calcium Magnesium Total Creatine Kinase 1088 H CK-MB (CK-2) 50.1 H D CK and CKMB Interp 4.6 Troponin I 53.900 H 10/07/16 10/07/16 10/07/16 15:42 18:49 21:57 WBC RBC Hgb Hct MCV MCH MCHC RDW Plt Count MPV Neut % (Auto) Lymph % (Auto) [place] % (Auto) Eos % (Auto) Baso % (Auto) Neut # (Auto) Lymph # (Auto) [place] # (Auto) Eos # (Auto) Baso # (Auto) Immature Gran % Nucleated RBC % Immature Gran # Nucleated RBCs # Sodium Potassium Chloride Carbon Dioxide Anion Gap BUN Creatinine GFR Calculation BUN/Creatinine Ratio Glucose POC Glucose 190 H 190 H Calculated Osmolality Calcium Magnesium Total Creatine Kinase 920 H CK-MB (CK-2) 33.7 H D CK and CKMB Interp 3.7 Troponin I 50.100 H 10/08/16 10/08/16 04:18 04:18 WBC 9.8 D RBC 4.27 Hgb 13.2 Hct 38.9 MCV 91.1 MCH 31 MCHC 33.9 RDW 13.8 Plt Count 186 MPV 12.5 H Neut % (Auto) 60.7 Lymph % (Auto) 29.4 [place] % (Auto) 8.2 Eos % (Auto) 0.7 Baso % (Auto) 0.4 Neut # (Auto) 6.0 Lymph # (Auto) 2.9 [place] # (Auto) 0.8 Eos # (Auto) 0.1 Baso # (Auto) 0.0 Immature Gran % 0.6 Nucleated RBC % 0.3 Immature Gran # 0.06 Nucleated RBCs # 0.03 Sodium 138 Potassium 3.5 Chloride 103 Carbon Dioxide 23 Anion Gap 15.5 H BUN 27 H Creatinine 1.80 H GFR Calculation 39 BUN/Creatinine Ratio 15.00 Glucose 112 H POC Glucose Calculated Osmolality 280.7 Calcium 7.9 L Magnesium 1.8 Total Creatine Kinase CK-MB (CK-2) CK and CKMB Interp Troponin I
[2016-10-08] MEDS ORDERED: MAGNESIUM SULF RIDER 2 GM in PREMIX 1 EACH IV PRN (07:07)
[2016-10-08] MEDS ORDERED: POTASSIUM CHLORIDE RIDER 10 MEQ in PREMIX 1 EACH IV PRN (07:07)
--- NOTE | 2016-10-08 07:07 | History and Physical Update ---
Sedation H&P Update - History and Physical H&P was reviewed, the patient examined and there: are no changes in the patients condition since last H&P was completed. - Dictation Physical: refer to H&P completed by admitting physician - Physical Exam Mental Status: alert and oriented Heart: regular rate and rhythm Lung: clear to auscultation Abdomen: within normal limits Vitals: within normal limits - Sedation Plan for Sedation: moderate Patient Consent: Procedure disscussed with patient and patinet has consented., Risks and benefits were discussed with patient,including infection,, bleeding, injury to surrounding structures, seizure, temporary nerve, Patient understands and accepts potential risks/benefits and agrees to, proceed. ASA Class: III Airway Assessment: Class II: Soft palate, uvula, fauces visible
--- NOTE | 2016-10-08 07:24 | History and Physical Update ---
Sedation H&P Update - History and Physical H&P was reviewed, the patient examined and there: are no changes in the patients condition since last H&P was completed. (patient has low EF. Afib is better controlled. I d/w her about the risk of LHC and she wishes to proceed.) - Dictation Physical: refer to H&P completed by admitting physician - Physical Exam Mental Status: alert and oriented Heart: other (afib at about 105) Lung: other (bibasilar rales) Abdomen: other (morbidly obese) Vitals: within normal limits (except tachycardia) - Sedation Plan for Sedation: minimal Patient Consent: Procedure disscussed with patient and patinet has consented., Risks and benefits were discussed with patient,including infection,, bleeding, injury to surrounding structures, seizure, temporary nerve, Patient understands and accepts potential risks/benefits and agrees to, proceed. ASA Class: IV Airway Assessment: Class IV: Only hard palate visible
[2016-10-08 07:32] LABS: INR 1.2; PT Patient Result 13.2 SECS
[2016-10-08] MEDS: INSULIN LISPRO 100 UNIT/ML SUBCUT SCH ×4 (07:56→20:32)
[2016-10-08] MEDS: FUROSEMIDE 40 MG/4 ML VIAL IV SCH ×2 (07:56→15:48)
[2016-10-08] MEDS ORDERED: DIAZEPAM 5 MG TABLET PO ONE (08:06)
[2016-10-08] MEDS ORDERED: diphenhydrAMINE CAP 25 MG CAPSULE PO ONE (08:06)
[2016-10-08] MEDS: sitaGLIPtin 100 MG TABLET PO SCH ×2 (08:09→08:10)
[2016-10-08] MEDS: INSULIN GLARGINE 100 UNIT/ML SUBCUT SCH (08:10)
[2016-10-08] MEDS: APIXABAN 5 MG TABLET PO SCH (08:10)
[2016-10-08] MEDS: CARVEDILOL 6.25 MG TABLET PO SCH ×2 (08:10→20:30)
[2016-10-08] MEDS: AMIODARONE INJ 450 MG in DEXTROSE 5% 241 ML IV SCH ×2 (10:48→13:15)
[2016-10-08] MEDS: ASCORBIC ACID 500 MG TABLET PO SCH (11:13)
[2016-10-08] MEDS: LISINOPRIL 2.5 MG TABLET PO SCH ×2 (11:13→20:30)
[2016-10-08] MEDS: FENOFIBRATE 145 MG TABLET PO SCH (11:14)
[2016-10-08] MEDS: PANTOPRAZOLE 40 MG TABLET PO SCH (11:15)
[2016-10-08] MEDS: DILTIAZEM INJ 100 MG in SODIUM CHLORIDE 0.9% 100 ML IV SCH (14:05)
--- NOTE | 2016-10-08 17:56 | Sleep Medicine Consult ---
Assessment and Plan (1) Snoring Status: Acute Assessment and plan: This patient definitely has a history concerning for sleep apnea. With her congestive cardiomyopathy and symptoms, sleep evaluation is indicated. She resides in [place] and we will set her up for polysomnography at the [facility] sleep center. Thank you for this consult and the opportunity to participate in her care. Current Visit: Yes (2) Atrial fibrillation with RVR Status: Acute Assessment and plan: The prevalence for obstructive sleep apnea can be as high as 80% in patients with atrial fibrillation. Treating the underlying sleep apnea can significantly improve management of the atrial fib. Recurrence can be decreased by almost 50% with treatment of obstructive sleep apnea. Current Visit: Yes (3) Congestive heart failure Status: Acute Assessment and plan: Obstructive sleep apnea can be an exacerbating factor of congestive heart failure, whether systolic or diastolic in origin. Treatment of obstructive sleep apnea in these patients can lead to decrease in recurrence of CHF, decrease in readmission right, and in patients with systolic heart dysfunction, improvement in ejection fraction. Current Visit: Yes (4) Diabetes Status: Chronic Assessment and plan: The prevalence rate for obstructive sleep apnea in patients with type 2 diabetes can be as high as 86%. Those patients with moderate to severe obstructive sleep apnea are at a greater risk for diabetic nephropathy and neuropathy. Compliance with CPAP therapy for these patients can lead to improvement in glycemic control and improvement in insulin sensitivity. Current Visit: Yes Qualifiers: Diabetes mellitus type: type 2 (5) Essential hypertension Status: Chronic Assessment and plan: The prevalence rate for obstructive sleep apnea patients with hypertension is 35 %. That rate can be as high as 80% in patients who require 4 or more medications for blood pressure control. Current Visit: Yes History of Present Illness Chief complaint: Sleep apnea History of present illness: Ms. Light is a 61 year old female admitted with shortness of breath and found to have congestive heart failure. During her evaluation, she was noted to have symptoms of snoring and abnormal breathing during sleep with awakening secondary to shortness of breath. She would awaken multiple times to urinate. She had a stop bang score of 6 and an [place] sleepiness score of 12. She underwent heart cath earlier today. She has a significant cardiomyopathy with an EF of about 20%. She resides in the [place] area. Home Medications Medication Instructions Recorded Confirmed Type Albuterol Inhaler [Proventil 2 puff INH DAILY PRN 10/06/16 10/06/16 History Inhaler] Chlorthalidone 25 mg PO BID 10/06/16 10/06/16 History Fenofibrate [Tricor] 145 mg PO DAILY 10/06/16 10/06/16 History Gabapentin 600 mg PO BEDTIME 10/06/16 10/06/16 History Insulin Detemir [Levemir FlexPen] 45 unit SUBCUT DAILY 10/06/16 10/06/16 History Ipratropium/Albuterol Sulfate 3 ml IH Q4H PRN 10/06/16 10/06/16 History [Iprat-Albut 0.5-3(2.5) mg/3 ml] Metoprolol Succinate Xl [Toprol Xl] 100 mg PO BEDTIME 10/06/16 10/06/16 History Omeprazole [Prilosec] 20 mg PO DAILY 10/06/16 10/06/16 History Saxagliptin HCl [Onglyza] 5 mg PO DAILY 10/06/16 10/06/16 History Allergies Allergy/AdvReac Type Severity Reaction Status Date / Time No Known Allergies Allergy Unverified 10/06/16 12:14 Review of systems: Notable for daytime fatigue and sleepiness. Otherwise unremarkable from a sleep standpoint. Exam ([place]) H&P - Constitutional Vitals: Period Temp Pulse Resp BP Sys/Sosa Pulse Ox Last 24 Hr 96.0 F-97.6 F 66-115 14-24 83-109/30-80 92-98 Exam: She is awake and responsive and answers questions appropriately. She is sitting upright on the side of her bed feeding herself. Pupils equal round reactive to light and accommodation. Extraocular movements intact. Oropharynx with a class IV Mallampati exam. Neck is supple without adenopathy or thyromegaly. No supraclavicular adenopathy is noted. Chest with symmetrical breath sounds without focal wheeze or rhonchi. Cardiac exam reveals a regular rhythm without murmur or gallop. Abdomen soft nontender without palpable hepatosplenomegaly or mass. Extremities without significant clubbing or cyanosis. Neurologically, she is grossly intact. She moves all extremities with good strength. Medical,Surgical,& Family Hx - Medical History Cardio: History of: CHF, Hypertension Endocrine: History of: Diabetes Mellitus (NIDDM), Dyslipidemia Gastrointestinal: History of: GERD - Social History Smoking Status: Former smoker Frequency of Alcohol Use: None Type of Drug Use: None Results - Labs CBC & BMP: 10/08/16 04:18 10/08/16 04:18 Lab Results: I have reviewed the past 24 hour labs
[2016-10-08] MEDS: ROSUVASTATIN 20 MG TABLET PO SCH (20:30)
[2016-10-08] MEDS: GABAPENTIN 300 MG CAPSULE PO SCH (20:31)
[2016-10-09] MEDS: AMIODARONE INJ 450 MG in DEXTROSE 5% 241 ML IV SCH ×2 (04:40→22:14)
[2016-10-09 06:38] LABS: Basophils % 0.3 % (0.0-0.8); Eosinophils # 0.1 10*3/uL (0.0-0.87); Eosinophils % 1.4 % (0.00-10.9); Hemoglobin 12.3 GM/DL (12.0-16.0); Immature Granulocytes % 0.5 %; Immature Granulocytes Absolute 0.05 #; Lymphocytes # 2.1 10*3/uL (1.4-4.0); Lymphocytes % 22.9 % (21.3-54.2); Mean Corpuscular HGB Conc 33.2 GM/DL (32-36); Mean Corpuscular Hemoglobin 31 PG (27-34); Mean Corpuscular Volume 93.2 FL (87-102); Mean Platelet Volume 12.1 FL (9.6-12.0); Monocytes % 10.2 % (1.7-12.7); Neutrophils % 64.7 % (38.7-73.9); Platelet Count 184 T/CUMM (130-400); Red Blood Count 3.97 MC/CUMM (3.8-5.5); Red Cell Distribution Width 13.9 % (9.3-17.3); White Blood Count 9.3 T/CUMM (4-12)
[2016-10-09] MEDS ORDERED: MAGNESIUM SULF RIDER 2 GM in PREMIX 1 EACH IV PRN (06:45)
[2016-10-09] MEDS ORDERED: DIAZEPAM 5 MG TABLET PO ONE (06:45)
[2016-10-09] MEDS ORDERED: POTASSIUM CHLORIDE RIDER 10 MEQ in PREMIX 1 EACH IV PRN (06:45)
[2016-10-09] MEDS ORDERED: diphenhydrAMINE CAP 25 MG CAPSULE PO ONE (06:45)
--- NOTE | 2016-10-09 06:47 | History and Physical Update ---
Sedation H&P Update - History and Physical H&P was reviewed, the patient examined and there: are no changes in the patients condition since last H&P was completed. - Dictation Physical: refer to H&P completed by admitting physician - Physical Exam Mental Status: alert and oriented Heart: regular rate and rhythm Lung: clear to auscultation Abdomen: within normal limits Vitals: within normal limits - Sedation Plan for Sedation: minimal Patient Consent: Procedure disscussed with patient and patinet has consented., Risks and benefits were discussed with patient,including infection,, bleeding, injury to surrounding structures, seizure, temporary nerve, Patient understands and accepts potential risks/benefits and agrees to, proceed. ASA Class: IV Airway Assessment: Class IV: Only hard palate visible
[2016-10-09] MEDS ORDERED: SODIUM CHLORIDE 0.45% 1,000 ML IV SCH (07:00)
[2016-10-09 07:06] LABS: Calcium 7.6 MG/DL (8.5-10.1); Magnesium 2.5 MG/DL (1.8-2.4); Osmolality,Calculated 284.7 MOS/KG (273-304); Potassium 3.9 MMOL/L (3.5-5.1)
[2016-10-09] MEDS: INSULIN LISPRO 100 UNIT/ML SUBCUT SCH ×4 (07:40→22:07)
[2016-10-09] MEDS ORDERED: HEPARIN/NACL 0.9% 2 UNITS/ML 1,000 ML IV ONE (08:16)
[2016-10-09] MEDS ORDERED: LIDOCAINE 1% 20 ML VIAL ONE (08:16)
--- NOTE | 2016-10-09 08:16 | Cardiology Progress Note ---
Cardiology - PN: Subj Interval history: Cardiology note 61 year old woman admitted with congestive heart failure and rapid atrial fibrillation. Patient has converted chemically with IV amiodarone. Telemetry shows sinus rhythm in the 70s Blood pressure 105/73 O2 sat 97 on 2 L cannula No chest pain. Irregular rhythm no murmur decreased breath sounds few basilar crackles No leg edema Abdomen obese soft benign Lab data today White count 9.3 hemoglobin 12.3 hematocrit 37.0 Sodium 138 potassium 3.9 chloride 102 CO2 28 BUN 31 creatinine 1.80 Magnesium 2.5 glucose 158 Impression End-stage cardiomyopathy EF 15-20% Recurrent congestive heart failure Atrial fibrillation documented May 2016 at [facility] when she first presented with CHF Chronic dyspnea and exercise intolerance Obesity Longtime diabetic with poor control A1c level 10.3 GE reflux Possible non-Q-wave [place] peak CPK 1088 peak troponin 53.9 Former tobacco abuse ZOLTAN suspected Plan Eliquis on hold Cardiac cath today Exam (Progress Note) - Constitutional Vitals: Period Temp Pulse Resp BP Sys/Sosa Pulse Ox Last 24 Hr 96.0 F-97.6 F 66-107 14-24 83-116/30-80 94-98 Result/EKG - Labs CBC & BMP: 10/09/16 05:54 10/09/16 05:54 Labs: Laboratory Results - last 24 hr 10/08/16 10/08/16 10/08/16 07:00 10:55 15:06 WBC RBC Hgb Hct MCV MCH MCHC RDW Plt Count MPV Neut % (Auto) Lymph % (Auto) [place] % (Auto) Eos % (Auto) Baso % (Auto) Neut # (Auto) Lymph # (Auto) [place] # (Auto) Eos # (Auto) Baso # (Auto) Immature Gran % Nucleated RBC % Immature Gran # Nucleated RBCs # Immature Plt Fraction Sodium Potassium Chloride Carbon Dioxide Anion Gap BUN Creatinine GFR Calculation BUN/Creatinine Ratio Glucose POC Glucose 118 H 123 H 179 H Calculated Osmolality Calcium Magnesium 10/08/16 10/09/16 10/09/16 20:14 05:54 05:54 WBC 9.3 RBC 3.97 Hgb 12.3 Hct 37.0 MCV 93.2 MCH 31 MCHC 33.2 RDW 13.9 Plt Count 184 MPV 12.1 H Neut % (Auto) 64.7 Lymph % (Auto) 22.9 [place] % (Auto) 10.2 Eos % (Auto) 1.4 Baso % (Auto) 0.3 Neut # (Auto) 6.0 Lymph # (Auto) 2.1 [place] # (Auto) 1.0 H Eos # (Auto) 0.1 Baso # (Auto) 0.0 Immature Gran % 0.5 Nucleated RBC % 0.0 Immature Gran # 0.05 Nucleated RBCs # 0.00 Immature Plt Fraction 0.0 Sodium 138 Potassium 3.9 Chloride 102 Carbon Dioxide 28 Anion Gap 11.9 BUN 31 H Creatinine 1.80 H GFR Calculation 39 BUN/Creatinine Ratio 17.00 Glucose 158 H POC Glucose 186 H Calculated Osmolality 284.7 Calcium 7.6 L Magnesium 2.5 H 10/09/16 07:31 WBC RBC Hgb Hct MCV MCH MCHC RDW Plt Count MPV Neut % (Auto) Lymph % (Auto) [place] % (Auto) Eos % (Auto) Baso % (Auto) Neut # (Auto) Lymph # (Auto) [place] # (Auto) Eos # (Auto) Baso # (Auto) Immature Gran % Nucleated RBC % Immature Gran # Nucleated RBCs # Immature Plt Fraction Sodium Potassium Chloride Carbon Dioxide Anion Gap BUN Creatinine GFR Calculation BUN/Creatinine Ratio Glucose POC Glucose 162 H Calculated Osmolality Calcium Magnesium
[2016-10-09] MEDS ORDERED: DEXTROSE 50% 25 GM/50 ML SYRINGE IV PRN (08:30)
[2016-10-09] MEDS ORDERED: fentaNYL 100 MCG/2 ML VIAL ONE (09:15)
[2016-10-09] MEDS ORDERED: MIDAZOLAM 2 MG/2 ML VIAL ONE (09:15)
[2016-10-09] MEDS ORDERED: HEPARIN 5,000 UNIT/1 ML VIAL ONE (09:48)
[2016-10-09] MEDS ORDERED: HEPARIN/NACL 0.9% 2 UNITS/ML 500 ML IV ONE (10:07)
[2016-10-09] MEDS: sitaGLIPtin 100 MG TABLET PO SCH (10:09)
[2016-10-09] MEDS: INSULIN GLARGINE 100 UNIT/ML SUBCUT SCH (10:09)
[2016-10-09] MEDS: CARVEDILOL 6.25 MG TABLET PO SCH ×2 (10:09→22:08)
[2016-10-09] MEDS: FUROSEMIDE 40 MG/4 ML VIAL IV SCH (10:09)
[2016-10-09] MEDS: ASCORBIC ACID 500 MG TABLET PO SCH (10:10)
[2016-10-09] MEDS: FENOFIBRATE 145 MG TABLET PO SCH (10:10)
[2016-10-09] MEDS: PANTOPRAZOLE 40 MG TABLET PO SCH (10:10)
[2016-10-09] MEDS: LISINOPRIL 2.5 MG TABLET PO SCH (10:10)
[2016-10-09] MEDS ORDERED: DOPamine 800 MG/250 ML PREMIX IV ONE (10:12)
[2016-10-09] MEDS ORDERED: CLOPIDOGREL 300 MG TABLET ONE (10:42)
[2016-10-09] MEDS ORDERED: ACETAMINOPHEN 325 MG TABLET PO PRN (10:58)
--- NOTE | 2016-10-09 11:03 | Cardiac Catheterization ---
Date of Procedure:: 10/09/16 Pre-op Diagnosis: Newly diagnosed atrial fibrillation, cardiomyopathy and non- ST elevation myocardial infarction Post-op diagnosis: other (Advanced coronary artery disease with 100% occlusion of the proximal left anterior descending artery with DIO 0 flow status post successful PCI with JIMI 2 as below entheses 3.0 x 18 mm Xience Alpine drug- eluting stent in the LAD proper and a 2.5 x 8 mm Xience drug-eluting stent in the first diagonal with kissing balloons. Stents placed in the reverse mini crush method) Procedure: Procedures: 1. Left heart catheterization resting hemodynamics 2. Selective left and right coronary angiography 3. Percutaneous coronary intervention of the proximal left anterior descending artery with a 3.0 x 18 mm Xience drug-eluting stent. The vessel was 100% occluded with DIO 0 flow pre-PCI and less than 10% residual stenosis with DIO- 3 flow post PCI 4. Percutaneous coronary intervention of the ostial first diagonal with a 2.5 x 8 mm Xience drug-eluting stent. The vessel had 90% stenosis pre-PCI after PCI of the mother vessel with DIO-3 flow and 0% residual stenosis with DIO-3 flow was PCI 5. Right femoral and iliac angiography 6. Closure right femoral arteriotomy with minx closure device After consent was taken from the patient. Taken to the catheterization lab for left heart catheterization via the femoral artery. Time out was taken and recorded. 1% lidocaine was infiltrated in the skin and subcutaneous tissue overlying the right femoral artery. Modified Seldinger technique and an 18- gauge Cook needle was used for access to the right femoral artery. An 0.35 J- wire was advanced through the needle into the central aorta under fluoroscopy. A small skin was made and a 6 Turkish sheath was placed over the wire. The sheath was aspirated and flushed. A JL46 was advanced over the wires in the left main coronary artery was selectively engaged. Multiple orthogonal views of the left system were obtained. The catheter was then exchanged over the wire. The sheath was aspirated and flushed. A JR4 catheter was advanced over the wire into the central aorta. The right coronary was selectively engaged and orthogonal views of the right coronary artery were obtained. The catheter was then exchanged over the wire, the sheath was aspirated and flushed. At this time an angled pigtail catheter was advanced across the aortic valve into the ventricle. Pressure measurements were obtained and pullback measurements were performed. The embossograph operator reviewed the films. The room was set up for the intervention mode. The patient was given 5000 units of heparin and ACT was verified to be greater than 300 seconds. This time an EBU 4.0 guide was advanced over the wire the central aorta the left main coronary selective engaged. A 180 cm pro-water wire was used to cross the 1% occlusion in the LAD at the takeoff our office of the first diagonal. He was advanced with a knuckle to the apex. At this time a second wire was placed in the first diagonal because of anticipated plaque shift into the diagonal. A 2.0 by 12 mm [place] balloon was used to [place]. this area demonstrate that the wire was in good position in the vessel. This balloon was then used to inflate the 100% occlusion. There was good yielding of this area. At this time a 3.0 x 18 mm Xience drug-eluting stent was deployed due to plaque morphology was felt that the ostium of the diagonal had to be covered. He was deployed with good result in the mother vessel however there is intense plaque shift in approximately 90% plus ostial stenosis in the second diagonal that had remained patent prior to the procedure there was slightly diminished flow in this area. The diagonal wire was pulled back and the diagonal was rewired. At this time the previously used 2 oh by 12 mm [place] balloon was used to dilate the stent struts in the ostium of the diagonal without any change in morphology. The balloon was removed and a 2.5 x 8 mm Xience drug-eluting stent was used to cross the stenosis with intent of covering only the ostium of the diagonal with intentions of a T stent type stenting. The stent however watermelon seated back into the vessel. There is concern for entrapment of the wire in the LAD. The stent balloon was removed. The LAD wire was pulled back into the guide and then readvanced into the LAD. At this time it was planned to perform kissing balloons for NC balloons. The 2.5 balloon went into the diagonal without difficulty however the 3.0 NC Quantum would not pass past the area of overlapping stents. Multiple attempts were tried. Ultimately the wire was pulled back and repositioned still would not pass the decision was made to postdilate the 2.5 stent to high pressures and hopefully open sales on this jailed portion of the LAD. After the high pressure inflation with a 2 5 balloon it was pulled back into the guide then with significant ease the vessel was rewired a third time and the 3.0 balloon passed into the distal vessel. The 2.5 balloon was then advanced and the 2 balloons were case with NC Quantum balloons at their appropriate size to 12 ema. It was felt there was very good angiographic result both wires removed and 2 orthogonal views were obtained. The sheath was aspirated and flushed and a right femoral and iliac angiography was performed. The access site was amenable for closure and the area was reprepped with ChloraPrep and draped with sterile towels. The Mynx closure device was used in standard technique. There was no hematoma and distal pulses were good. Total diagnostic fluoroscopy time 28.5 minutes with total fluoroscopy dose 2620 mGy total contrast exposure 291 cc of Visipaque FINDINGS: LV: 88/16 LVEDP: 28 Ao: 85/61 EF: Not assessed LM: Large long angiographically normal LAD: There is moderate amount of calcium at the bifurcation of the first diagonal. This is a relatively small vessel after this bifurcation. It is 100 % occluded flush occlusion of the takeoff of the first diagonal pre-PCI with DIO 0 flow and post PCI there is less than 10% residual with DIO-3 flow in the vessel both the mother and the daughter vessel. 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 There is no cramping or kinking in the vessel it is turning course. RFA/CHEO: Angiographically normal however access at a area of multiple branches therefore not amenable to Angio-Seal closure Assessment: 1. Atrial fibrillation now back to sinus rhythm 2. Ischemic cardiomyopathy status post non-ST elevation myocardial infarction 100% occluded proximal left anterior descending artery status post successful PCI with JIMI 2 and kissing stents in a reverse mini crush technique as described above with excellent angiographic result 3. Renal insufficiency 4. Hypotension 5. Decompensated cardiomyopathy with systolic and diastolic dysfunction PLAN: 1. I discussed with the family 2. Continue monitoring the CCU 3. Hold KELSEY inhibitor for now because of contrast exposure and hypotension to prevent impedance of autoregulation of the kidneys 4. Bicarbonate infusion and Mucomyst post PCI 5. Cardiac rehabilitation 6. Continue statin dual antiplatelet therapy and beta-angel and ultimately resume KELSEY arm were interested with discharge if blood pressure and renal function allows Implants: 1. Mynx closure device 2. 3.0 x 18 mm Xience drug-eluting stent in the proximal LAD 3. 2.5 x 8 mm Xience Alpine drug-eluting stent in the first diagonal Anesthesia: moderate conscious sedation Surgeon / Physician: Dana Gallardo Photogrammetrist: none Estimated blood loss: minimal Specimens: none sent Condition: stable Disposition: ICU/CCU - Medications / Follow-up
[2016-10-09] MEDS: ACETYLCYSTEINE 600 MG CAPSULE PO SCH ×2 (12:12→22:09)
[2016-10-09] MEDS: DILTIAZEM INJ 100 MG in SODIUM CHLORIDE 0.9% 100 ML IV SCH (13:29)
[2016-10-09] MEDS: SODIUM BICARB INJ 50 MEQ in SODIUM CHLORIDE 0.45% 1,000 ML IV SCH (13:52)
--- NOTE | 2016-10-09 14:15 | EKG Report ---
Stationary ECG Study [facility] Test Date: 10/09/2016 2:15:27 PM Pat Name: JANICE UMANA Department: Room: 125 Gender: F Helpdesk Analyst: : 1955 Requested by: Meliton Peterson Order Number: [id number] Reading MD: LOVE AVELAR Intervals [place] Rate: 90 P: 999 [place]: 0 QRS: 73 QRSD: 106 T: 0 QT: 389 QTc: 436 Interpretive Statements ATRIAL FIBRILLATION LOW QRS VOLTAGE Electronically Signed On 10-11-16 16:54:01 CDT by LOVE AVELAR [email or web address]
[2016-10-09] MEDS: GABAPENTIN 300 MG CAPSULE PO SCH (22:08)
[2016-10-09] MEDS: ROSUVASTATIN 20 MG TABLET PO SCH (22:08)
--- NOTE | 2016-10-10 02:22 | Cardiology Progress Note ---
Cardiology - PN: Subj Interval history: Cardiology note 60 woman admitted with congestive heart failure non-Q-wave RI and rapid atrial fibrillation. She converted with IV amiodarone to sinus. Cardiac cath yesterday showed occluded LAD which was stented with a patent circumflex and right coronary. Ejection fraction 15-20% by echo. No chest pain. O2 sat 94% room air. Blood pressure 100/64. Telemetry shows sinus rhythm with PACs. Irregular rhythm no murmur Decreased breath sounds few crackles in the right base Abdomen nontender Femoral pulses 2+ with soft left bruit. Right groin soft and dry no hematoma. Distal pulses 1+. 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% Recurrent congestive heart failure Status post non-Q-wave anterior RI with proximal LAD stent Chronic dyspnea and exercise intolerance Atrial fibrillation documented May 2016 at [place] when she first presented with CHF Obesity Longtime diabetic with poor control A1c level 10.3 GE reflux Former tobacco abuse ZOLTAN suspected Plan Lab data pending IV amiodarone Lasix 40 mg IV twice daily Lisinopril 2.5 mg twice daily Carvedilol 6.25 mg twice daily Transfer to telemetry Plavix 75 mg daily and aspirin 81 mg daily Crestor 40 mg daily Protonix 40 mg daily Exam (Progress Note) - Constitutional Vitals: Period Temp Pulse Resp BP Sys/Sosa Pulse Ox Last 24 Hr 96.0 F-98.5 F 67-119 16-26 88-127/58-97 88-97 Result/EKG - Labs CBC & BMP: 10/09/16 05:54 10/09/16 05:54 Labs: Laboratory Results - last 24 hr 10/09/16 10/09/16 10/09/16 05:54 05:54 07:31 WBC 9.3 RBC 3.97 Hgb 12.3 Hct 37.0 MCV 93.2 MCH 31 MCHC 33.2 RDW 13.9 Plt Count 184 MPV 12.1 H Neut % (Auto) 64.7 Lymph % (Auto) 22.9 [place] % (Auto) 10.2 Eos % (Auto) 1.4 Baso % (Auto) 0.3 Neut # (Auto) 6.0 Lymph # (Auto) 2.1 [place] # (Auto) 1.0 H Eos # (Auto) 0.1 Baso # (Auto) 0.0 Immature Gran % 0.5 Nucleated RBC % 0.0 Immature Gran # 0.05 Nucleated RBCs # 0.00 Immature Plt Fraction 0.0 Sodium 138 Potassium 3.9 Chloride 102 Carbon Dioxide 28 Anion Gap 11.9 BUN 31 H Creatinine 1.80 H GFR Calculation 39 BUN/Creatinine Ratio 17.00 Glucose 158 H POC Glucose 162 H Calculated Osmolality 284.7 Calcium 7.6 L Magnesium 2.5 H Troponin I 10/09/16 10/09/16 10/09/16 11:13 11:25 16:59 WBC RBC Hgb Hct MCV MCH MCHC RDW Plt Count MPV Neut % (Auto) Lymph % (Auto) [place] % (Auto) Eos % (Auto) Baso % (Auto) Neut # (Auto) Lymph # (Auto) [place] # (Auto) Eos # (Auto) Baso # (Auto) Immature Gran % Nucleated RBC % Immature Gran # Nucleated RBCs # Immature Plt Fraction Sodium Potassium Chloride Carbon Dioxide Anion Gap BUN Creatinine GFR Calculation BUN/Creatinine Ratio Glucose POC Glucose 176 H 143 H Calculated Osmolality Calcium Magnesium Troponin I 18.100 H D 10/09/16 10/09/16 19:11 21:19 WBC RBC Hgb Hct MCV MCH MCHC RDW Plt Count MPV Neut % (Auto) Lymph % (Auto) [place] % (Auto) Eos % (Auto) Baso % (Auto) Neut # (Auto) Lymph # (Auto) [place] # (Auto) Eos # (Auto) Baso # (Auto) Immature Gran % Nucleated RBC % Immature Gran # Nucleated RBCs # Immature Plt Fraction Sodium Potassium Chloride Carbon Dioxide Anion Gap BUN Creatinine GFR Calculation BUN/Creatinine Ratio Glucose POC Glucose 233 H Calculated Osmolality Calcium Magnesium Troponin I 21.200 H Quality Measures - VTE Contraindication to Pharmacological VTE Prophylaxis: Already on Theraputic Agent , No Prophylaxis Needed Specialty Discharge - Follow Up or Referrals
[2016-10-10 04:48] LABS: Basophils % 0.3 % (0.0-0.8); Eosinophils # 0.1 10*3/uL (0.0-0.87); Eosinophils % 0.8 % (0.00-10.9); Hemoglobin 12.7 GM/DL (12.0-16.0); Immature Granulocytes % 0.4 %; Immature Granulocytes Absolute 0.03 #; Lymphocytes # 1.4 10*3/uL (1.4-4.0); Lymphocytes % 19.9 % (21.3-54.2); Mean Corpuscular HGB Conc 33.4 GM/DL (32-36); Mean Corpuscular Hemoglobin 31 PG (27-34); Mean Corpuscular Volume 91.6 FL (87-102); Mean Platelet Volume 11.5 FL (9.6-12.0); Monocytes # 0.8 10*3/uL (0.11-0.8); Monocytes % 10.7 % (1.7-12.7); Neutrophils # 4.9 10*3/uL (1.4-7.4); Neutrophils % 67.9 % (38.7-73.9); Platelet Count 212 T/CUMM (130-400); Red Blood Count 4.15 MC/CUMM (3.8-5.5); Red Cell Distribution Width 13.6 % (9.3-17.3); White Blood Count 7.2 T/CUMM (4-12)
[2016-10-10 05:29] LABS: Calcium 7.8 MG/DL (8.5-10.1); Magnesium 2.3 MG/DL (1.8-2.4); Osmolality,Calculated 282.5 MOS/KG (273-304); Potassium 3.7 MMOL/L (3.5-5.1)
[2016-10-10] MEDS: INSULIN LISPRO 100 UNIT/ML SUBCUT SCH ×4 (07:27→21:46)
--- NOTE | 2016-10-10 07:39 | EKG Report ---
Stationary ECG Study [facility] Test Date: 10/10/2016 7:38:07 AM Pat Name: JANICE UMANA Department: Room: 125 Gender: F Dance Teacher: SARANYA : 1955 Requested by: Meliton Peterson Order Number: [id number] Reading MD: LOVE AVELAR Intervals [place] Rate: 91 P: 999 [place]: 0 QRS: 111 QRSD: 106 T: 180 QT: 387 QTc: 436 Interpretive Statements ATRIAL FIBRILLATION LOW QRS VOLTAGE IN EXTREMITY ANTREROLATERAL MYOCARDIAL INFARCTION, PROBABLY RECENT Electronically Signed On 10-11-16 16:56:35 CDT by LOVE AVELAR [email or web address]
[2016-10-10] MEDS: ASCORBIC ACID 500 MG TABLET PO SCH (08:13)
[2016-10-10] MEDS: FENOFIBRATE 145 MG TABLET PO SCH (08:13)
[2016-10-10] MEDS: sitaGLIPtin 100 MG TABLET PO SCH (08:13)
[2016-10-10] MEDS: PANTOPRAZOLE 40 MG TABLET PO SCH (08:13)
[2016-10-10] MEDS: ACETYLCYSTEINE 600 MG CAPSULE PO SCH ×2 (08:13→21:40)
[2016-10-10] MEDS: ASPIRIN EC 81 MG TABLET PO SCH (08:13)
[2016-10-10] MEDS: CARVEDILOL 6.25 MG TABLET PO SCH ×2 (08:13→22:39)
[2016-10-10] MEDS: INSULIN GLARGINE 100 UNIT/ML SUBCUT SCH (08:14)
[2016-10-10] MEDS: CLOPIDOGREL 75 MG TABLET PO SCH (08:14)
[2016-10-10] MEDS: SODIUM BICARB INJ 50 MEQ in SODIUM CHLORIDE 0.45% 1,000 ML IV SCH (08:52)
[2016-10-10] MEDS: DILTIAZEM INJ 100 MG in SODIUM CHLORIDE 0.9% 100 ML IV SCH (12:29)
[2016-10-10] MEDS: AMIODARONE INJ 450 MG in DEXTROSE 5% 241 ML IV SCH (12:58)
[2016-10-10] MEDS: FUROSEMIDE 40 MG/4 ML VIAL IV SCH (17:00)
[2016-10-10] MEDS: ROSUVASTATIN 20 MG TABLET PO SCH (21:40)
[2016-10-10] MEDS: GABAPENTIN 300 MG CAPSULE PO SCH (21:40)
[2016-10-10] MEDS: LISINOPRIL 2.5 MG TABLET PO SCH (22:39)
[2016-10-11] MEDS: AMIODARONE INJ 450 MG in DEXTROSE 5% 241 ML IV SCH ×2 (04:26→18:24)
[2016-10-11 04:45] LABS: Basophils % 0.4 % (0.0-0.8); Eosinophils # 0.1 10*3/uL (0.0-0.87); Eosinophils % 1.1 % (0.00-10.9); Hematocrit 37.6 VOL% (35.7-47.0); Hemoglobin 12.7 GM/DL (12.0-16.0); Immature Granulocytes % 0.4 %; Immature Granulocytes Absolute 0.03 #; Lymphocytes # 2.1 10*3/uL (1.4-4.0); Lymphocytes % 25.5 % (21.3-54.2); Mean Corpuscular HGB Conc 33.8 GM/DL (32-36); Mean Corpuscular Hemoglobin 31 PG (27-34); Mean Corpuscular Volume 91.3 FL (87-102); Monocytes # 0.9 10*3/uL (0.11-0.8); NRBC # 0.02 10*3/uL; Neutrophils # 5.1 10*3/uL (1.4-7.4); Neutrophils % 61.6 % (38.7-73.9); Platelet Count 239 T/CUMM (130-400); Red Blood Count 4.12 MC/CUMM (3.8-5.5); Red Cell Distribution Width 13.4 % (9.3-17.3); White Blood Count 8.2 T/CUMM (4-12)
[2016-10-11 05:16] LABS: Calcium 7.7 MG/DL (8.5-10.1); Magnesium 2.1 MG/DL (1.8-2.4); Osmolality,Calculated 278.8 MOS/KG (273-304); Potassium 3.7 MMOL/L (3.5-5.1)
[2016-10-11] MEDS: INSULIN LISPRO 100 UNIT/ML SUBCUT SCH ×4 (07:58→21:19)
[2016-10-11] MEDS: ASPIRIN EC 81 MG TABLET PO SCH (08:34)
[2016-10-11] MEDS: CARVEDILOL 6.25 MG TABLET PO SCH ×2 (08:35→21:19)
[2016-10-11] MEDS: INSULIN GLARGINE 100 UNIT/ML SUBCUT SCH (08:35)
[2016-10-11] MEDS: sitaGLIPtin 100 MG TABLET PO SCH (08:35)
[2016-10-11] MEDS: FENOFIBRATE 145 MG TABLET PO SCH (08:36)
[2016-10-11] MEDS: ACETYLCYSTEINE 600 MG CAPSULE PO SCH (08:36)
[2016-10-11] MEDS: CLOPIDOGREL 75 MG TABLET PO SCH (08:36)
[2016-10-11] MEDS: ASCORBIC ACID 500 MG TABLET PO SCH (08:36)
[2016-10-11] MEDS: LISINOPRIL 2.5 MG TABLET PO SCH ×2 (08:36→21:19)
[2016-10-11] MEDS: FUROSEMIDE 40 MG/4 ML VIAL IV SCH ×2 (08:42→16:56)
[2016-10-11] MEDS: PANTOPRAZOLE 40 MG TABLET PO SCH (08:48)
[2016-10-11] MEDS ORDERED: MAGNESIUM HYDROXIDE SUSP 30 ML UDCUP PO PRN (09:06)
[2016-10-11] MEDS ORDERED: MAGNESIUM HYDROXIDE SUSP 30 ML UDCUP PO ONE (09:07)
[2016-10-11] MEDS: DOCUSATE SODIUM 100 MG CAPSULE PO SCH ×2 (09:16→21:19)
--- NOTE | 2016-10-11 09:34 | Cardiology Progress Note ---
Cardiology - PN: Subj Interval history: Cardiology note 61-year-old woman admitted with congestive heart failure non-Q-wave ND and rapid atrial fibrillation. She converted with IV amiodarone, but is now back in atrial fibrillation Cardiac cath showed occluded LAD which was stented and patent circumflex and right coronary Ejection fraction 15-20% by echo No chest pain O2 sat 95% on room air Blood pressure 104/60 Telemetry shows A. fib ventricular rate 80-90 Irregular rhythm no murmur Decreased breath sounds few basilar crackles Abdomen benign Right groin soft and dry no bruit or hematoma. Distal pulses 1+ Lab data White count 8.2 hemoglobin 12.7 hematocrit 37.6 Sodium 137 potassium 3.7 chloride 99 CO2 28 BUN 22 creatinine 1.50 glucose 158 magnesium 2.1 Impression Status post non-Q-wave anterior ND with proximal LAD stent Ischemic cardia myopathy EF 15-20% Recurrent congestive heart failure chronic dyspnea and exercise intolerance Atrial fibrillation documented May 2016 at [place] when she first presented with CHF Obesity Longtime diabetic with poor control A1c level 10.3 GE reflux Former tobacco abuse ZOLTAN suspected Plan Lasix 40 mg IV twice daily Lisinopril 2.5 mg twice daily Carvedilol 6.25 mg twice daily Aspirin 81 mg and Plavix 75 mg daily Crestor 40 mg daily Protonix 40 mg daily DC IV amiodarone and switch to oral 200 mg 3 times daily Eliquis 5 mg twice daily BMP in a.m. Will need cardioversion after a couple of weeks of anticoagulation Exam (Progress Note) - Constitutional Vitals: Period Temp Pulse Resp BP Sys/Sosa Pulse Ox Last 24 Hr 96.5 F-97.8 F 85-104 16-18 96-109/55-74 93-96 Result/EKG - Labs CBC & BMP: 10/11/16 04:08 10/11/16 04:08 Labs: Laboratory Results - last 24 hr 10/10/16 10/10/16 10/10/16 11:49 15:50 21:39 WBC RBC Hgb Hct MCV MCH MCHC RDW Plt Count MPV Neut % (Auto) Lymph % (Auto) [place] % (Auto) Eos % (Auto) Baso % (Auto) Neut # (Auto) Lymph # (Auto) [place] # (Auto) Eos # (Auto) Baso # (Auto) Immature Gran % Nucleated RBC % Immature Gran # Nucleated RBCs # Immature Plt Fraction Sodium Potassium Chloride Carbon Dioxide Anion Gap BUN Creatinine GFR Calculation BUN/Creatinine Ratio Glucose POC Glucose 229 H 200 H 188 H Calculated Osmolality Calcium Magnesium 10/11/16 10/11/16 10/11/16 04:08 04:08 07:24 WBC 8.2 RBC 4.12 Hgb 12.7 Hct 37.6 MCV 91.3 MCH 31 MCHC 33.8 RDW 13.4 Plt Count 239 MPV 11.0 Neut % (Auto) 61.6 Lymph % (Auto) 25.5 [place] % (Auto) 11.0 Eos % (Auto) 1.1 Baso % (Auto) 0.4 Neut # (Auto) 5.1 Lymph # (Auto) 2.1 [place] # (Auto) 0.9 H Eos # (Auto) 0.1 Baso # (Auto) 0.0 Immature Gran % 0.4 Nucleated RBC % 0.2 Immature Gran # 0.03 Nucleated RBCs # 0.02 Immature Plt Fraction 0.0 Sodium 137 Potassium 3.7 Chloride 99 Carbon Dioxide 28 Anion Gap 13.7 BUN 22 H Creatinine 1.50 H GFR Calculation 49 BUN/Creatinine Ratio 14.00 Glucose 158 H POC Glucose 147 H Calculated Osmolality 278.8 Calcium 7.7 L Magnesium 2.1 Quality Measures - VTE Contraindication to Pharmacological VTE Prophylaxis: Already on Theraputic Agent , No Prophylaxis Needed Specialty Discharge - Follow Up or Referrals
[2016-10-11] MEDS: APIXABAN 5 MG TABLET PO SCH ×2 (09:54→21:19)
[2016-10-11] MEDS: ROSUVASTATIN 20 MG TABLET PO SCH (21:18)
[2016-10-11] MEDS: GABAPENTIN 300 MG CAPSULE PO SCH (21:19)
[2016-10-12 05:09] LABS: Basophils % 0.4 % (0.0-0.8); Eosinophils # 0.2 10*3/uL (0.0-0.87); Eosinophils % 2.2 % (0.00-10.9); Hematocrit 35.6 VOL% (35.7-47.0); Hemoglobin 12.4 GM/DL (12.0-16.0); Immature Granulocytes % 0.3 %; Immature Granulocytes Absolute 0.02 #; Lymphocytes # 1.6 10*3/uL (1.4-4.0); Lymphocytes % 23.7 % (21.3-54.2); Mean Corpuscular HGB Conc 34.8 GM/DL (32-36); Mean Corpuscular Hemoglobin 31 PG (27-34); Mean Corpuscular Volume 89.4 FL (87-102); Mean Platelet Volume 11.1 FL (9.6-12.0); Monocytes # 0.8 10*3/uL (0.11-0.8); Monocytes % 11.3 % (1.7-12.7); Neutrophils # 4.2 10*3/uL (1.4-7.4); Neutrophils % 62.1 % (38.7-73.9); Platelet Count 253 T/CUMM (130-400); Red Blood Count 3.98 MC/CUMM (3.8-5.5); Red Cell Distribution Width 13.3 % (9.3-17.3); White Blood Count 6.8 T/CUMM (4-12)
[2016-10-12 05:39] LABS: Calcium 8.3 MG/DL (8.5-10.1); Magnesium 2.1 MG/DL (1.8-2.4); Osmolality,Calculated 279.7 MOS/KG (273-304)
[2016-10-12] MEDS: ASCORBIC ACID 500 MG TABLET PO SCH (09:22)
[2016-10-12] MEDS: APIXABAN 5 MG TABLET PO SCH (09:23)
[2016-10-12] MEDS: LISINOPRIL 2.5 MG TABLET PO SCH (09:23)
[2016-10-12] MEDS: sitaGLIPtin 100 MG TABLET PO SCH (09:23)
[2016-10-12] MEDS: CLOPIDOGREL 75 MG TABLET PO SCH (09:23)
[2016-10-12] MEDS: CARVEDILOL 6.25 MG TABLET PO SCH (09:23)
[2016-10-12] MEDS: ASPIRIN EC 81 MG TABLET PO SCH (09:23)
[2016-10-12] MEDS: FENOFIBRATE 145 MG TABLET PO SCH (09:23)
[2016-10-12] MEDS: FUROSEMIDE 40 MG/4 ML VIAL IV SCH (09:24)
[2016-10-12] MEDS: PANTOPRAZOLE 40 MG TABLET PO SCH (09:24)
[2016-10-12] MEDS: DOCUSATE SODIUM 100 MG CAPSULE PO SCH (09:24)
[2016-10-12] MEDS: INSULIN GLARGINE 100 UNIT/ML SUBCUT SCH (09:24)
[2016-10-12] MEDS: INSULIN LISPRO 100 UNIT/ML SUBCUT SCH ×2 (09:25→12:31)
[2016-10-12] MEDS: AMIODARONE 200 MG TABLET PO SCH ×2 (09:25→11:51)
--- NOTE | 2016-10-12 11:53 | Discharge Summary ---
Hospital Course - Hospital Course Hospital Course: I personally interviewed, examined the patient, reviewed the chart, discussed MDM with practitioner Jeb. I agree with this note. [place] Scientist: Dr. Soria (new) PCP: [facility], Dr. Eid Ms. Light is a 61 year old female without known history of coronary artery disease, not routinely followed by cardiology. Patient has cardiac risk factors significant for diabetes, hyperlipidemia, hypertension, obesity, sedentary lifestyle, advanced age and former smoker (quit last year). Patient has a past medical history of chronic dyspnea, GERD, renal insufficiency and congestive heart failure. Patient reports that she was just recently diagnosed with congestive heart failure 2 months ago at [facility]. Per patient report, she has never undergone heart catheterization or stress testing. Patient presented to [facility] October 06, 2016 with complaints of chest pain and shortness of breath. In the emergency room, she was noted to be in atrial fibrillation with rapid ventricular response, new onset. Chest x-ray revealed congestive heart failure. Echocardiogram revealed ejection fraction of 15-20%. PA pressure 50 mmHg. Trace MR. She was treated for acute congestive heart failure, secondary to both systolic and diastolic dysfunction. She was treated appropriately with IV Lasix. Once her breathing improved, she was taken to the cardiac catheterization lab as she had non-ST elevation [place]. Troponin peaked at 53.9. The following impressions were noted: Assessment: 1. Ischemic cardiomyopathy status post non-ST elevation myocardial infarction 100% occluded proximal left anterior descending artery status post successful PCI with JIMI 2 and kissing stents in a reverse mini crush technique as described above with excellent angiographic result PLAN: 1. I discussed with the family 2. Hold KELSEY inhibitor for now because of contrast exposure and hypotension to prevent impedance of autoregulation of the kidneys 3. Cardiac rehabilitation 4. Continue statin dual antiplatelet therapy and beta-angel and ultimately resume KELSEY inhibitor when blood pressure and renal function allows Post cardiac catheterization, patient was transported back to the telemetry unit in stable condition. She has done well. She is without complaints of chest pain, heaviness and tightness this morning. Her groin is soft without bleeding, hematoma and bruit. Distal pulses 2+. She has ambulated without difficulty and right groin has remained stable post ambulation. Right groin precautions have been reviewed with the patient. She verbalized understanding. I have also discussed the importance of dual antiplatelet therapy. She and her family both verbalized understanding. She will be discharged home with Plavix and aspirin. Her creatinine this morning is 1.6, improved from 1.8 post catheterization. 1.2 at admission. At this time, she will not be discharged home on KELSEY inhibitor or ARB due to fear of worsening renal function. This can be hopefully this can be reinitiated as an outpatient once her renal function allows. Troponin trending down as expected. She continues to be in atrial fibrillation, now rate controlled. She will be discharged home with amiodarone 200 twice daily, beta-blockade and Eliquis 5 mg twice daily for stroke prevention. She will have CBC in [address] Soria as she is being discharged home on Eliquis, aspirin and Plavix. H&H today is stable at 12.4 and 35.6. After being anticoagulated for 1 month, she will be a candidate for cardioversion. She will need repeat echocardiogram in 90 days to reassess her LV function. If LV function remains low she will be a candidate for ICD at that time. Patient is anxious for discharge home. Her daughter is at bedside and reports that her and her brother will be at home to help assist in caring for their mother. Having felt that she has met maximal medical therapy, she will be discharged home in stable condition. Of note, she also has symptoms concerning for obstructive sleep apnea. She will be set up for sleep study at [facility] sleep center. She will be given a follow-up appointment for this at discharge. She has been given a follow-up appointment at [facility] in 2 weeks for further management of her diabetes and other comorbidities. Patient verbalizes urging of discharge instructions and discharge medications. - Time spent with patient Time with patient DS: Greater than 30 minutes Diagnosis - Discharge Diagnosis (1) Atrial fibrillation with RVR Status: Resolved (2) Congestive heart failure Status: Chronic (3) Diabetes Status: Chronic (4) Hyperlipidemia Status: Chronic (5) Obesity Status: Chronic (6) GERD (gastroesophageal reflux disease) Status: Chronic (7) Former smoker Status: Chronic (8) Dyspnea Status: Resolved (9) Snoring Status: Acute (10) Daytime sleepiness Status: Acute (11) Essential hypertension Status: Chronic (12) Ischemic cardiomyopathy Status: Acute (13) Non-ST elevation NY (NSTEMI) Status: Resolved (14) Status post coronary artery stent placement Status: Acute Specialty Discharge - Follow Up or Referrals Follow up with: Garrick Soria MD [Physician] - 10/20/16 8:00 am (CBC, BMP and EKG) Discharge Plan - Discharge Data Disposition: Disch To Home/Self Care Condition at Discharge: Stable Discharge Diet: heart healthy, low fat, low cholesterol, low salt diet Activity: no lifting (Avoid squatting and heavy lifting 1 week), other (Post cath expectations) Hygiene: other (Post cath expectations) Weight Bearing at Discharge: other (Post cath expectations) Driving: other (Post cath expectations) Contact your physician if you experience:: fever over 101, Difficulty voiding, Redness or swelling, Nausea/Vomiting, Shortness of breath, Bleeding, pain uncontrolled by pain medications - Discharge Medications New Apixaban [Eliquis] 5 mg PO BID #60 tablet Ascorbic Acid Tab [Vitamin C Tab] 1,000 mg PO DAILY #30 tablet Carvedilol [Coreg] 6.25 mg PO BID #60 tablet Clopidogrel [Plavix] 75 mg PO DAILY #30 tablet Rosuvastatin [Crestor] 40 mg PO BEDTIME #30 tablet Amiodarone Tab [Cordarone Tab] 200 mg PO BID #60 tablet Aspirin EC Tab 81 mg PO DAILY #30 tablet Furosemide Tab [Lasix Tab] 40 mg PO DAILY #30 tablet Continue Saxagliptin HCl [Onglyza] 5 mg PO DAILY Omeprazole [Prilosec] 20 mg PO DAILY Fenofibrate [Tricor] 145 mg PO DAILY Gabapentin 600 mg PO BEDTIME Albuterol Inhaler [Proventil Inhaler] 2 puff INH DAILY PRN PRN Reason: Shortness Of Breath Insulin Detemir [Levemir FlexPen] 45 unit SUBCUT DAILY Ipratropium/Albuterol Sulfate [Iprat-Albut 0.5-3(2.5) mg/3 ml] 3 ml IH Q4H PRN PRN Reason: Shortness Of Breath Discontinued Chlorthalidone 25 mg PO BID Metoprolol Succinate Xl [Toprol Xl] 100 mg PO BEDTIME - Follow Up or Referral Follow Up: Garrick Soria MD [Physician] - 10/20/16 8:00 am (CBC, BMP and EKG) - Forms/Instructions Instructions: Myocardial Infarction (GEN), Left Heart Catheterization (DC), Heart Healthy Diet (GEN), Coronary Intravascular Stent Placement, Chair Car Attendant (GEN) Exam - Constitutional Vitals: Period Temp Pulse Resp BP Sys/Sosa Pulse Ox Last 24 Hr 97.3 F-98.2 F 75-93 16-18 82-117/51-76 91-96 Exam: General: Appears well with no apparent distress. Pleasant and cooperative. Appears comfortable. HEENT: PERRL, normocephalic, atraumatic. Mucous membranes moist. No jaundice noted. Conjunctiva moist and clear, sclerae anicteric Neck: No JVD/HJR, no thyromegaly or lymphadenopathy noted. Cardiac: Irregular rhythm, rate controlled. No murmur rub or gallop. Lungs: Clear to auscultation without accessory muscle use to assist the respiratory pattern. Not requiring oxygen. Abdomen: Soft, bowel sounds normoactive. Nontender and nondistended. No abdominal bruit or thrill noted. No masses noted. Extremities: No clubbing, cyanosis noted. No edema noted. Upper extremity pulses 2+. Lower extremity pulses 2+. Capillary refill less than 3 seconds. Right groin soft without bleeding, hematoma and bruit. Distal pulses 2+. Skin: No unusual lesions or rashes. No skin breakdown appreciated. Neuro: Awake, alert and oriented 3. Moves all extremities well without hemiparesis or paralysis. No essential tremor is appreciated. Discharge Results Labs on day of discharge: Labs from last 24 hours 10/12/16 10/12/16 10/12/16 15:55 12:26 07:55 WBC RBC Hgb Hct MCV MCH MCHC RDW Plt Count MPV Neut % (Auto) Lymph % (Auto) Cooke % (Auto) Eos % (Auto) Baso % (Auto) Neut # (Auto) Lymph # (Auto) [place]oke # (Auto) Eos # (Auto) Baso # (Auto) Immature Gran % Nucleated RBC % Immature Gran # Nucleated RBCs # Immature Plt Fraction Sodium Potassium Chloride Carbon Dioxide Anion Gap BUN Creatinine GFR Calculation BUN/Creatinine Ratio Glucose POC Glucose 201 H 153 H 122 H Calculated Osmolality Calcium Magnesium 10/12/16 10/12/16 03:45 03:45 WBC 6.8 RBC 3.98 Hgb 12.4 Hct 35.6 L MCV 89.4 MCH 31 MCHC 34.8 RDW 13.3 Plt Count 253 MPV 11.1 Neut % (Auto) 62.1 Lymph % (Auto) 23.7 Cooke % (Auto) 11.3 Eos % (Auto) 2.2 Baso % (Auto) 0.4 Neut # (Auto) 4.2 Lymph # (Auto) 1.6 Cooke # (Auto) 0.8 Eos # (Auto) 0.2 Baso # (Auto) 0.0 Immature Gran % 0.3 Nucleated RBC % 0.0 Immature Gran # 0.02 Nucleated RBCs # 0.00 Immature Plt Fraction 0.0 Sodium 138 Potassium 4.0 Chloride 98 Carbon Dioxide 33 H Anion Gap 11.0 BUN 22 H Creatinine 1.60 H GFR Calculation 46 BUN/Creatinine Ratio 13.00 Glucose 131 H POC Glucose Calculated Osmolality 279.7 Calcium 8.3 L Magnesium 2.1 - Imaging and Cardiology Cardiology Procedure: report reviewed by me Procedure: Chest x-ray: report reviewed by me DS: Provider Date of admission: 10/06/16 14:00 Primary care physician: Fahad Giraldo MD Attending physician on admission: Garrick Soria MD Consults: 10/06/16 16:18 Consult to Physician [CONS] Routine Comment: SUSPECTED SLEEP APNEA Consulting Provider: Debbie Quevedo When should Consulting Provider be notified: In am 10/07/16 07:40 Consult to Sleep Center [CONS] Routine Reason for Sleep Center: Sleep Center Physician 10/07/16 15:53 Consult to Diabetes Center, Educator [CONS] Routine Reason for Dog Races Manager: Re-education 10/09/16 10:56 Consult to Cardiac Rehabilitation [CONS] Routine Reason for Cardiac Rehabilitation: Risk Factor Modification 10/12/16 11:33 Consult to Case Mgmt/Social Srvs [CONS] Routine Reason for Case Mgmt/Social Srvs: Discharge Planning Discharging clinician: Sayda Russ NP Expected date of discharge: 10/12/16
[2016-10-12 12:46] VITALS: BP 117/75
[2016-10-12] MEDS ORDERED: AMIODARONE 200 MG TABLET PO SCH (21:00)
[2016-10-13] MEDS ORDERED: FUROSEMIDE 40 MG TABLET PO SCH (09:00)
== END 2016-10-12 17:03 | disposition home or self-care (01) | DRG 246 ==
LOC: EDBD → EDUNIT# → N.ED 11:58 → N.EDINP 14:00 → N.TELES 16:32 → N.CC 19:04 → N.TELES 10-10 10:30
PROVIDERS: ADMIT Internal Medicine Cardiovascular Disease; ATTEND Internal Medicine Cardiovascular Disease
PROC: CLCCHCL (ICD-10-PCS; 2016-10-09 09:15)

== ENCOUNTER 2016-12-08 07:15 | Inpatient (IN) ==
[~2016-12-08 07:15] MED LIST: SODIUM CHLORIDE 0.9% 1,000 ML IV SCH
--- NOTE | 2016-12-08 08:05 | History and Physical Update ---
Sedation H&P Update - History and Physical H&P was reviewed, the patient examined and there: are no changes in the patients condition since last H&P was completed. - Dictation Physical: refer to scanned H&P - Physical Exam Mental Status: alert and oriented Heart: regular rate and rhythm Lung: clear to auscultation Abdomen: within normal limits Vitals: within normal limits - Sedation Plan for Sedation: moderate Patient Consent: Procedure disscussed with patient and patinet has consented., Risks and benefits were discussed with patient,including infection,, bleeding, injury to surrounding structures, seizure, temporary nerve, Patient understands and accepts potential risks/benefits and agrees to, proceed. ASA Class: II Airway Assessment: Class II: Soft palate, uvula, fauces visible
[2016-12-08] MEDS ORDERED: MIDAZOLAM 10 MG/2 ML VIAL ONE (08:12)
[2016-12-08] MEDS ORDERED: MEPERIDINE 25 MG/1 ML VIAL ONE (08:12)
[2016-12-08 08:20] LABS: Calcium 8.5 MG/DL (8.5-10.1); Potassium 3.4 MMOL/L (3.5-5.1)
--- NOTE | 2016-12-08 08:57 | Event Note ---
Event note Synchronized cardioversion procedure Preop diagnosis recurrent atrial fibrillation Postop diagnosis same. The patient has an ischemic cardiomyopathy EF 15-20%. She is status post cardioversion October 28, 2016 for atrial fibrillation. The patient developed recurrent atrial fibrillation and heart failure. She has been reloaded with amiodarone and takes Eliquis 5 mg twice daily for anticoagulation. The cardioverted procedure was discussed with the patient and with her daughter Ronna at the office and with her daughter Bridget at the hospital. Risks and benefits reviewed. All questions answered consent form was signed. Apical and sternal patches were placed. The patient received a total dose of 3 mg IV Versed to achieve and maintain adequate anesthesia. Continuous O2 sat monitoring was performed. Despite 2 attempts at synchronized cardioverted with 250 and 360 J, the patient had no P-wave activity and remains in atrial fibrillation. Presently the blood pressure is 95/52, O2 sat is 94% on 4 L nasal cannula and telemetry shows atrial fib ventricular rate around 110. Patient is beginning to lighten. Plan Admit to telemetry for treatment of CHF and renal failure Consult Dr. Castillo Findings and plan discussed with patient and her daughter Bridget.
--- NOTE | 2016-12-08 09:14 | Cardiology History & Physical ---
History of Present Illness History of present illness: History and physical 61-year-old woman with an ischemic cardiomyopathy EF 15-20%. The patient had unsuccessful cardioversion today and remains in atrial fibrillation. She is now admitted to the hospital for management of recurrent congestive heart failure and progressive renal failure. She has failed to respond to outpatient Lasix and morning Zaroxolyn. She has 3+ edema to the knees and a chest x-ray shows cardiomegaly and CHF. BNP level is 867. Creatinine has risen to 2.80 BUN 42. On December 04, 2016 creatinine was 1.4 BUN 33 and a calculated GFR was 38.2 mL/min. Status post congestive heart failure and new onset atrial fibrillation May 2016 at [facility], treated medically. She was sent to [facility] for evaluation in September 2016 when she had an anterior infarction and recurrent congestive heart failure. She underwent proximal LAD stent and diagonal stent October 09, [address] Gallardo. The patient has chronic hypertension and long-standing diabetes poorly controlled. Hemoglobin A1c of 10.3 when tested October 12, 2016. She is status post synchronized cardioversion October 28, 2016 for atrial fibrillation. The patient has suspected obstructive sleep apnea and is currently on nasal cannula O2 to 2 L/min. She has been waiting to be scheduled for her sleep study. The patient quit smoking about 1 year ago but has smoked about 40 years. She does not drink any alcohol. She does have GE reflux symptoms and takes Prilosec 20 mg daily. Currently she is taking Onglyza 5 mg every morning and Levemir insulin 45 units daily for diabetes. She takes Lipitor for hyperlipidemia. Currently her CHF regimen includes Lasix 80 mg at 8 AM and 2 PM daily along with 5 mg Zaroxolyn 30 minutes before the morning Lasix dose, and Coreg 6.25 g twice daily. She has not been on an KELSEY or arb due to hypotension and renal failure. The patient weighs 299 pounds. According to her daughter Bridget she is very weak and needs assistance to get up to use the bathroom and they have been changing her clothes in bed. EKG shows atrial fib with old anterior infarction and diffuse ST-T wave changes. Chest x-ray shows cardiac with CHF. Blood pressure 95/52 O2 sat 94 on 4 L cannulated. Pulse is 100 210 and irregular. Neck veins are flat. No carotid bruit. Decreased breath sounds with crackles in the right base. Irregular rhythm. No murmur. Abdomen obese soft benign. Femoral pulses are 2+. She has tense 3+ edema to the knee. Distal pulses not palpable. Impression Recurrent congestive heart failure, systolic and diastolic combined and acute renal failure superimposed on chronic renal failure. She has 3+ leg edema to the knees and CHF by chest x-ray. Creatinine today is up to 2.80 BUN 42. Creatinine was 1.40 when tested December 04, 2016. Ischemic cardiomyopathy EF 15-20% Status post non-Q-wave anterior infarction with CHF September 2016 status post LAD stent October 09, 2016 tobacco abuse in remission Type 2 diabetes with poor control A1c level 10.3 Hyperlipidemia Hypotension Status post cardioversion October 28, 2016 now with recurrent atrial fib Status post unsuccessful cardioversion 2 today. Patient had no P-wave activity 299 pounds Obstructive sleep apnea suspected. We are waiting for her sleep study to be scheduled Chronic renal failure with GFR 38 mL/min on December 04, 2016 creatinine 1.4 Plan Admit to telemetry Consult Dr. Castillo for renal Supplemental O2 and duo nebs IV Lasix Labs in a.m. Prognosis poor. Findings and plan have been discussed in detail with her daughter Bridget. Home Medications Medication Instructions Recorded Confirmed Type Albuterol Inhaler [Proventil 2 puff INH DAILY PRN 10/06/16 12/08/16 History Inhaler] Fenofibrate [Tricor] 145 mg PO DAILY 10/06/16 12/08/16 History Gabapentin 600 mg PO BEDTIME 10/06/16 12/08/16 History Insulin Detemir [Levemir FlexPen] 45 unit SUBCUT DAILY 10/06/16 12/08/16 History Ipratropium/Albuterol Sulfate 3 ml IH Q4H PRN 10/06/16 12/08/16 History [Iprat-Albut 0.5-3(2.5) mg/3 ml] Omeprazole [Prilosec] 20 mg PO DAILY 10/06/16 12/08/16 History Saxagliptin HCl [Onglyza] 5 mg PO DAILY 10/06/16 12/08/16 History Amiodarone Tab [Cordarone Tab] 200 mg PO BID #60 tablet 10/12/16 12/08/16 Rx Apixaban [Eliquis] 5 mg PO BID #60 tablet 10/12/16 12/08/16 Rx Ascorbic Acid Tab [Vitamin C Tab] 1,000 mg PO DAILY #30 tablet 10/12/16 Rx Aspirin EC Tab 81 mg PO DAILY #30 tablet 10/12/16 12/08/16 Rx Carvedilol [Coreg] 6.25 mg PO BID #60 tablet 10/12/16 12/08/16 Rx Clopidogrel [Plavix] 75 mg PO DAILY #30 tablet 10/12/16 12/08/16 Rx Atorvastatin [Lipitor] 40 mg PO BEDTIME 10/26/16 12/08/16 History Furosemide 80 mg PO BID 10/28/16 12/08/16 History Furosemide Tab [Lasix Tab] 40 mg PO DAILY 10/28/16 12/08/16 History Allergies Allergy/AdvReac Type Severity Reaction Status Date / Time No Known Allergies Allergy Unverified 10/06/16 12:14 Medical,Surgical,& Family Hx - Medical History Cardio: History of: CHF Neurology: No history of: Seizures Endocrine: History of: Dyslipidemia Gastrointestinal: History of: GERD - Social History Smoking Status: Former smoker Result/EKG - Labs CBC & BMP: 12/08/16 07:48 Labs: Laboratory Results - last 24 hr 12/08/16 12/08/16 12/08/16 07:45 07:48 08:02 Sodium 136 Potassium 3.4 L Chloride 89 L Carbon Dioxide 43 H Anion Gap 7.4 BUN 42 H Creatinine 2.80 H GFR Calculation 0 BUN/Creatinine Ratio 15.00 Glucose 114 H POC Glucose 136 H Calculated Osmolality 283.0 Calcium 8.5 Magnesium 2.0 B-Natriuretic Peptide 867 H
[2016-12-08] MEDS ORDERED: MIDAZOLAM 2 MG/2 ML VIAL IV ONE (09:20)
--- NOTE | 2016-12-08 09:20 | XRay Report ---
History: Shortness of breath Date: 12/08/2016 Study: Chest x-ray AP portable Comparison exam: October 06, 2016 There is cardiomegaly. The pulmonary vasculature is slightly prominent. The mediastinal contours are unchanged. There is mild hazy edema in the lower lungs. There is a small left pleural effusion. Osseous structures are unchanged. Impression: Cardiomegaly and evidence of CHF/fluid overload with some mild bibasilar pulmonary edema PROCEDURE INTERPRETED AT [facility] DEPARTMENT OF RADIOLOGY Final Report Signed by: Dr. Falguni Colón
[2016-12-08] MEDS ORDERED: ALBUTEROL/IPRATROPIUM 3 ML NEB RESP TX PRN (09:24)
[2016-12-08] MEDS ORDERED: ZALEPLON 5 MG CAPSULE PO PRN (09:35)
[2016-12-08] MEDS ORDERED: MAGNESIUM SULF RIDER 2 GM in PREMIX 1 EACH IV PRN (09:35)
[2016-12-08] MEDS ORDERED: DEXTROSE 50% 25 GM/50 ML VIAL IV PRN (09:35)
[2016-12-08] MEDS ORDERED: MAGNESIUM SULF RIDER 4 GM in PREMIX 1 EACH IV PRN (09:35)
[2016-12-08] MEDS ORDERED: GLUCAGON 1 MG VIAL IM PRN (09:35)
[2016-12-08] MEDS ORDERED: ONDANSETRON 4 MG/2 ML VIAL IV PRN (09:35)
[2016-12-08] MEDS: FUROSEMIDE 40 MG/4 ML VIAL IV SCH ×2 (10:56→16:18)
[2016-12-08 12:46] LABS: Apearance,Urine Slightly Hazy (Clear); Bacteria,Urine Occasional /HPF (Few); Bilirubin,Urine Negative (Negative); Blood, Urine Negative (Negative); Glucose,Urine (UA) Negative (Negative); Hyaline Casts,Urine 7 /LPF (0-3); Ketones,Urine Negative (Negative); Mucus,Urine Occasional /LPF (Occasional); Nitrite,Urine Negative (Negative); Protein,Urine Negative; Urine Color Amber (Yellow); Urine Specific Gravity 1.009 (1.001-1.035); WBC,Urine <1 /HPF (0-6)
--- NOTE | 2016-12-08 13:23 | Ultrasound Report ---
Exam: US renal Bilateral Date: 12/08/2016 10:18 AM Indication: Recurrent CHF renal failure Comparison: None Findings: Right kidney. 10.5 x 4.7 x 5.3 cm. No hydronephrosis perinephric fluid collections or focal mass with echogenicity equal to the liver. Left kidney. 8.2 x 4.9 x 4.6 cm. No hydronephrosis perinephric fluid collections or focal mass with echogenicity equal to the liver. Impression: 1. Normal appearing renal sonography without hydronephrosis or obstruction or significant increased echogenicity Ultrasound images were stored and captured PROCEDURE INTERPRETED AT [facility] DEPARTMENT OF RADIOLOGY Final Report Signed by: Dr. Rian Claire
--- NOTE | 2016-12-08 13:48 | Nephrology Consult Note ---
History of Present Illness Chief complaint: ARF on CRF History of present illness: Ms. Light is a 61 year old female with ischemic cardiomyopathy. She was treated for MO and CHF in late September. She developed atrial fibrillation and underwent cardioversion on 10/28/2016. She presented with recurrence of atrial fibrillation and CHF. She underwent unsuccessful attempt at cardioversion this morning. Creatinine was 1.6 on 10/12/2016. It has risen to 2.8. She has noted more lower extremity edema and has ALEX. Home Medications Medication Instructions Recorded Confirmed Type Albuterol Inhaler [Proventil 2 puff INH DAILY PRN 10/06/16 12/08/16 History Inhaler] Fenofibrate [Tricor] 145 mg PO DAILY 10/06/16 12/08/16 History Gabapentin 600 mg PO BEDTIME 10/06/16 12/08/16 History Insulin Detemir [Levemir FlexPen] 45 unit SUBCUT DAILY 10/06/16 12/08/16 History Ipratropium/Albuterol Sulfate 3 ml IH Q4H PRN 10/06/16 12/08/16 History [Iprat-Albut 0.5-3(2.5) mg/3 ml] Omeprazole [Prilosec] 20 mg PO DAILY 10/06/16 12/08/16 History Saxagliptin HCl [Onglyza] 5 mg PO DAILY 10/06/16 12/08/16 History Amiodarone Tab [Cordarone Tab] 200 mg PO BID #60 tablet 10/12/16 12/08/16 Rx Apixaban [Eliquis] 5 mg PO BID #60 tablet 10/12/16 12/08/16 Rx Ascorbic Acid Tab [Vitamin C Tab] 1,000 mg PO DAILY #30 tablet 10/12/16 Rx Aspirin EC Tab 81 mg PO DAILY #30 tablet 10/12/16 12/08/16 Rx Clopidogrel [Plavix] 75 mg PO DAILY #30 tablet 10/12/16 12/08/16 Rx Furosemide 80 mg PO BID 10/28/16 12/08/16 History Ascorbic Acid Tab [Vitamin C Tab] 1,000 mg PO DAILY 12/08/16 12/08/16 History Omeprazole 20 mg PO DAILY 12/08/16 12/08/16 History Potassium Chloride Cap/Tab [K Dur] 20 meq PO BID 12/08/16 12/08/16 History Simvastatin 40 mg PO BEDTIME 12/08/16 12/08/16 History metOLazone [Metolazone] 5 mg PO DAILY 12/08/16 12/08/16 History Allergies Allergy/AdvReac Type Severity Reaction Status Date / Time No Known Allergies Allergy Verified 12/08/16 12:49 Medical,Surgical,& Family Hx - Medical History Cardio: History of: CHF, Hypertension, MO Neurology: No history of: Seizures Endocrine: History of: Diabetes Mellitus (NIDDM), Dyslipidemia Gastrointestinal: History of: GERD - Family History Family History: Reports;: Family Diabetes, Family Hypertension, Family Stroke - Social History Smoking Status: Former smoker Frequency of Alcohol Use: None Type of Drug Use: None Review of Systems 12 point system: reviewed and no additional remarkable complaints except as stated Exam - Vital Signs Vital signs: Period Temp Pulse Resp BP Sys/Sosa Pulse Ox Last 24 Hr 97.7 F-98.7 F 117-119 20-20 82-98/55-60 98-100 Exam: Gen.: Alert and oriented x3. ENT: Pupils equal round reactive to light. EOMs intact. Mucous membranes moist. Neck: Supple. No JVD or bruit. Cardiovascular: Irregularly irregular rhythm Lungs: Decreased breath sounds in the bases Abdomen: Soft. Nontender. Positive bowel sounds. No organomegaly Extremities: 2-3+ edema Results - Labs CBC & BMP: 12/08/16 07:48 Assessment and Plan (1) Chronic kidney disease, stage III (moderate) Status: Acute Assessment and plan: 61-year-old woman with: * Ischemic cardiomyopathy. Ejection fraction 15-20% * Atrial fibrillation. Status post unsuccessful cardioversion * CRF 3. * ARF. She is on no nephrotoxic medications. She has been hypotensive. Suspect under perfusion is the main culprit. * Diabetes mellitus * Obesity Current Visit: Yes (2) ARF (acute renal failure) Status: Acute Current Visit: Yes (3) Ischemic cardiomyopathy Status: Acute Current Visit: No (4) Status post coronary artery stent placement Status: Acute Current Visit: No (5) Diabetes Status: Chronic Current Visit: No Qualifiers: Diabetes mellitus type: type 2 (6) Obesity Status: Chronic Current Visit: No Qualifiers: Body mass index: BMI 40.0-44.9 (7) Atrial fibrillation with RVR Status: Resolved Current Visit: No
[2016-12-08] MEDS ORDERED: ALBUTEROL 2.5 MG/3 ML NEB RESP TX PRN (14:30)
--- NOTE | 2016-12-08 17:01 | Order Completion Report ---
See report scanned to EMR
[2016-12-08] MEDS: CARVEDILOL 6.25 MG TABLET PO SCH (20:56)
[2016-12-08] MEDS: GABAPENTIN 300 MG CAPSULE PO SCH (20:56)
[2016-12-08] MEDS: APIXABAN 5 MG TABLET PO SCH (20:56)
[2016-12-08] MEDS: DOCUSATE SODIUM 100 MG CAPSULE PO SCH (20:56)
[2016-12-08] MEDS: AMIODARONE 200 MG TABLET PO SCH (20:56)
[2016-12-08] MEDS: ATORVASTATIN 40 MG TABLET PO SCH (20:56)
[2016-12-09 05:03] LABS: Basophils % 0.1 % (0.0-0.8); Eosinophils % 0.5 % (0.00-10.9); Hematocrit 32.7 VOL% (35.7-47.0); Immature Granulocytes % 0.3 %; Immature Granulocytes Absolute 0.03 #; Lymphocytes # 0.8 10*3/uL (1.4-4.0); Lymphocytes % 9.4 % (21.3-54.2); Mean Corpuscular HGB Conc 33.6 GM/DL (32-36); Mean Corpuscular Hemoglobin 31 PG (27-34); Mean Corpuscular Volume 90.6 FL (87-102); Mean Platelet Volume 11.1 FL (9.6-12.0); Monocytes # 0.9 10*3/uL (0.11-0.8); Monocytes % 10.1 % (1.7-12.7); Neutrophils # 6.9 10*3/uL (1.4-7.4); Neutrophils % 79.6 % (38.7-73.9); Platelet Count 329 T/CUMM (130-400); Red Blood Count 3.61 MC/CUMM (3.8-5.5); Red Cell Distribution Width 14.2 % (9.3-17.3); White Blood Count 8.6 T/CUMM (4-12)
[2016-12-09 06:05] LABS: Calcium 7.8 MG/DL (8.5-10.1); Magnesium 2.1 MG/DL (1.8-2.4); Osmolality,Calculated 292.8 MOS/KG (273-304); Potassium 3.5 MMOL/L (3.5-5.1)
[2016-12-09] MEDS: INSULIN GLARGINE 100 UNIT/ML SUBCUT SCH (08:31)
[2016-12-09] MEDS: FUROSEMIDE 40 MG/4 ML VIAL IV SCH ×2 (08:32→16:53)
[2016-12-09] MEDS: ASPIRIN EC 81 MG TABLET PO SCH (08:36)
[2016-12-09] MEDS: DOCUSATE SODIUM 100 MG CAPSULE PO SCH ×2 (08:36→21:08)
[2016-12-09] MEDS: CLOPIDOGREL 75 MG TABLET PO SCH (08:36)
[2016-12-09] MEDS: AMIODARONE 200 MG TABLET PO SCH ×2 (08:36→21:08)
[2016-12-09] MEDS: CARVEDILOL 6.25 MG TABLET PO SCH ×2 (08:37→21:12)
[2016-12-09] MEDS: FENOFIBRATE 145 MG TABLET PO SCH (08:37)
[2016-12-09] MEDS: sitaGLIPtin 25 MG TABLET PO SCH (08:37)
[2016-12-09] MEDS: PANTOPRAZOLE 40 MG TABLET PO SCH (08:37)
[2016-12-09] MEDS: ASCORBIC ACID 500 MG TABLET PO SCH (08:37)
[2016-12-09] MEDS: APIXABAN 5 MG TABLET PO SCH ×2 (08:37→21:07)
[2016-12-09] MEDS: DOBUTamine 500 MG/250 ML PREMIX IV SCH (08:40)
[2016-12-09] MEDS ORDERED: NON-FORMULARY MEDICATION (Omeprazole [Prilosec] 20 MG) PO SCH (09:00)
[2016-12-09] MEDS ORDERED: DEXTROSE 50% 25 GM/50 ML SYRINGE IV PRN (13:40)
[2016-12-09] MEDS ORDERED: GLUCAGON 1 MG VIAL IM PRN (13:40)
--- NOTE | 2016-12-09 14:27 | Nephrology Progress Note ---
Nephrology - PN: Subj Interval history: She is awake and alert. She states her shortness of breath has improved since yesterday. No chest pain Exam (PN)-Nephrology - Vital Signs Vital signs: Period Temp Pulse Resp BP Sys/Sosa Pulse Ox Last 24 Hr 97.9 F-99.2 F 92-124 16-20 91-103/52-68 91-97 Exam: Gen.: Alert and oriented x3. ENT: Pupils equal round reactive to light. EOMs intact. Mucous membranes moist. Neck: Supple. No JVD or bruit. Cardiovascular: Irregularly irregular rhythm Lungs: Clear Abdomen: Soft. Nontender. Positive bowel sounds. No organomegaly Extremities: 2+ edema - Lab 12/09/16 04:40 12/09/16 04:40 Most recent lab results Calcium 7.8 MG/DL (8.5-10.1) L 12/09/16 04:40 Magnesium 2.1 MG/DL (1.8-2.4) 12/09/16 04:40 Assessment and Plan (1) Chronic kidney disease, stage III (moderate) Status: Acute Assessment and plan: 61-year-old woman with: * Ischemic cardiomyopathy. Ejection fraction 15-20% * Atrial fibrillation. Status post unsuccessful cardioversion * CRF 3. * ARF. Renal function has improved. Fluid balance negative. Continue dobutamine and current diuretic * Diabetes mellitus * Obesity Current Visit: Yes (2) ARF (acute renal failure) Status: Acute Current Visit: Yes (3) Ischemic cardiomyopathy Status: Acute Current Visit: No (4) Status post coronary artery stent placement Status: Acute Current Visit: No (5) Diabetes Status: Chronic Current Visit: No Qualifiers: Diabetes mellitus type: type 2 (6) Obesity Status: Chronic Current Visit: No Qualifiers: Body mass index: BMI 40.0-44.9 (7) Atrial fibrillation with RVR Status: Resolved Current Visit: No Specialty Discharge - Follow Up or Referrals
[2016-12-09] MEDS: INSULIN LISPRO 100 UNIT/ML SUBCUT SCH ×2 (16:52→21:08)
[2016-12-09] MEDS: ACETAMINOPHEN 325 MG TABLET PO PRN (16:58)
--- NOTE | 2016-12-09 17:21 | Cardiology Progress Note ---
Frandy Reynolds Vanessa, RN, am scribing for, and in the presence of, Marek White MD 17:16. Assessment and Plan - Time spent with patient Time spent with patient: Greater than 30 minutes (1) Acute on chronic combined systolic (congestive) and diastolic (congestive) heart failure Status: Chronic Assessment and plan: Continue diuresis. Continue IV Dobutrex. EF 15-20%. Monitor daily weights, BMP, strict I/O. Fluid balance is negative today. We will try dobutamine as well as the Lasix. Current Visit: Yes (2) Atrial fibrillation Status: Chronic Assessment and plan: Patient is status post synchronized cardioversion on October 28 for atrial fibrillation. Patient was admitted yesterday for elective cardioversion after recurrence of atrial fibrillation. She is now status post unsuccessful cardioversion 2 yesterday. Continue medical management with amiodarone and anticoagulation with Eliquis. Continue to monitor and optimize electrolytes as needed. Ventricular response 120 bpm range today. Some limitation to her ventricular response management is her blood pressure. Current Visit: Yes (3) Chronic kidney disease, stage III (moderate) Status: Chronic Assessment and plan: Patient has a history of chronic and now progressive kidney disease with acute renal failure this admission.KELSEY inhibitors and ARBs have directly been avoided due to renal insufficiency. Initial creatinine 2.8 on admit. Nephrology has been consulted for evaluation and further recommendations. Appreciate assistance. Creatinine this morning improved slightly but is still elevated at 2.4. Current Visit: Yes (4) Ischemic cardiomyopathy Status: Chronic Assessment and plan: Ejection fraction 15-20%. Continue support with IV dobutamine infusion. Continue diuresis with IV Lasix 80 mg twice daily. Current Visit: No (5) Diabetes Status: Chronic Assessment and plan: Glucose levels 200-300. Patient has received her Lantus insulin this morning. Adding Humalog insulin sliding scale today. Will follow up for improved glycemic control. Current Visit: No Qualifiers: Diabetes mellitus type: type 2 (6) Essential hypertension Status: Chronic Assessment and plan: Patient does have a history of hypertension. However, this admission she is hypotensive with systolic BP 90-100 mmHg. Patient is now on IV Dobutrex infusion. Current Visit: No (7) Former smoker Status: Chronic Assessment and plan: Patient quit smoking 1 year ago. Reiterated importance and merits of cessation of all tobacco products. Current Visit: No (8) GERD (gastroesophageal reflux disease) Status: Chronic Assessment and plan: PPI continued. Current Visit: No (9) Hyperlipidemia Status: Chronic Assessment and plan: Patient's TriCor and atorvastatin have been continued. Current Visit: No (10) Obesity Status: Chronic Assessment and plan: Dietary counseling and caloric intake restriction. Current Visit: No Qualifiers: Body mass index: BMI 40.0-44.9 (11) CAD (coronary artery disease) Status: Chronic Assessment and plan: Patient is status post non-ST elevation [place] in September 2016. She underwent stenting of proximal LAD and stenting of diagonal branch on October 09, [address] Gallardo. She is not having any anginal complaint at this time, and we will continue to monitor closely. Continue Plavix and low-dose ASA. Continue beta- angel and statin. Current Visit: Yes (12) Sleep disorder Status: Acute Assessment and plan: Patient has daytime somnolence, excessive snoring, and suspected sleep disorder. She is currently waiting to be scheduled for sleep study for definitive assessment. Current Visit: Yes (13) Edema Status: Acute Assessment and plan: This is somewhat chronic but generalized and progressive. Was because medications since calcium channel blockers can exacerbate this. Current Visit: Yes Cardiology - PN: Subj Interval history: DIRECTOR OF ANALYTICAL DEVELOPMENT: DR. GUTIÉRREZ SUMMARY: 61 year old NAF, PMHx hypertension and diabetes (poorly controlled), hyperlipidemia, chronic renal failure, suspected ZOLTAN, recent SC, and ischemic cardiomyopathy with EF of 10-20%. Status post PCI with stenting of LAD and diagonal branch in September 2016. Atrial fibrillation is new onset in May 2016, and this has been treated medically. She has had been cardioverted previously in October but had recurrence of atrial fibrillation. She presented to [facility] yesterday morning for elective cardioversion. Cardioversion was unsuccessful 2 attempts. However, lab work revealed that creatinine was elevated to 2.8 with BUN 42 (1.4 on December 04). Patient also had 3+ leg edema and chest x-ray with pulmonary edema. She was also having increasing dyspnea on exertion. Patient was admitted to [facility] telemetry from cardiac Dealer Sales Rep for further treatment of acute on chronic systolic and diastolic combined CHF and progressive chronic renal failure with acute injury. 2016: Patient is resting comfortably this afternoon. She is not having any acute respiratory distress. Appetite is good. No shortness of breath or chest pain. Bilateral lower extremity and pedal edema without improvement and remains 3-4+ . Nephrology was consulted upon admission, and Dr. Castillo has evaluated. Hypoperfusion suspected to be main contributor of acute renal failure. Patient has since been started on IV dobutamine infusion. Is also being diuresed with IV Lasix. Labs reviewed. Somewhat improved creatinine today but it is still elevated at 2.4 BUN 47. Cell count stable. Electrolytes within acceptable range. SBP is 90-100 mmHg. Atrial fibrillation with ventricular response 110- 120, occasional PVC. Patient continues to be monitored and treated for acute on chronic combined CHF, ischemic cardiomyopathy, and acute renal failure with chronic kidney disease. These are currently stable. Patient personally interviewed and examined and chart reviewed in the presence of Alexandra Wise RN. We discussed the case and plans. This assessment, evaluation and plan. In summation and addition this patient is on IV dobutamine now and giving IV Lasix. She has a significant cardiomyopathy and some renal sufficiency. We are asked nephrology to evaluate the patient was they are doing and appreciate Dr. Castillo evaluation. It appears that the consensus is that the patient's renal dysfunction is probably as much from hypoperfusion and hypotension is anything. Hopefully will be to diurese the patient adequately and decrease her fluid volume with IV dobutamine and IV Lasix without adversely affecting her kidneys. This may actually help improve the renal function. We will monitor this closely. ROS: -No dyspnea at rest -No chest pain -Dyspnea on exertion Exam (Progress Note) - Constitutional Vitals: Period Temp Pulse Resp BP Sys/Sosa Pulse Ox Last 24 Hr 97.9 F-99.2 F 92-124 16-20 91-103/52-68 91-97 General appearance: no acute distress, morbidly obese - Head Head exam: Present: normal inspection. Absent: abrasion, contusion - Eye Eye exam: Present: EOMI. Absent: periorbital swelling, scleral icterus Pupils: Present: PHILLY. Absent: dilated, fixed - ENT ENT exam: Present: normal external ear exam - Neck Neck exam: Present: normal inspection. Absent: tenderness - Respiratory Respiratory exam: Present: rales (Bibasilarly). Absent: wheezes - Cardiovascular Cardiovascular exam: Present: irregular rhythm, tachycardia. Absent: bradycardia, JVD, systolic murmur - GI/Abdominal GI/Abdominal exam: Present: normal bowel sounds, other (Obese). Absent: ascites , distended, firm, tenderness - Extremities Exam Extremities exam: Present: normal capillary refill, edema (3-4+ bilateral lower extremities and pedal edema). Absent: full ROM, calf tenderness - Back Exam Back exam: Present: normal inspection - Neurological Exam Neurological exam: Present: alert, oriented X3 - Psychiatric Psychiatric exam: Present: normal affect, normal mood. Absent: agitated, anxious - Skin Skin exam: Present: warm, dry, intact. Absent: abrasion, cyanosis, diaphoretic , rash Result/EKG - Labs CBC & BMP: 12/09/16 04:40 12/09/16 04:40 Lab Results: I have reviewed the past 24 hour labs Labs: Laboratory Results - last 24 hr 12/08/16 12/08/16 12/09/16 16:16 19:41 04:40 WBC 8.6 RBC 3.61 L Hgb 11.0 L Hct 32.7 L MCV 90.6 MCH 31 MCHC 33.6 RDW 14.2 Plt Count 329 MPV 11.1 Neut % (Auto) 79.6 H Lymph % (Auto) 9.4 L [place] % (Auto) 10.1 Eos % (Auto) 0.5 Baso % (Auto) 0.1 Neut # (Auto) 6.9 Lymph # (Auto) 0.8 L [place] # (Auto) 0.9 H Eos # (Auto) 0.0 Baso # (Auto) 0.0 Immature Gran % 0.3 Nucleated RBC % 0.0 Immature Gran # 0.03 Nucleated RBCs # 0.00 Immature Plt Fraction 0.0 Sodium Potassium Chloride Carbon Dioxide Anion Gap BUN Creatinine GFR Calculation BUN/Creatinine Ratio Glucose POC Glucose 231 H 275 H Calculated Osmolality Calcium Magnesium 12/09/16 12/09/16 12/09/16 04:40 07:25 11:15 WBC RBC Hgb Hct MCV MCH MCHC RDW Plt Count MPV Neut % (Auto) Lymph % (Auto) [place] % (Auto) Eos % (Auto) Baso % (Auto) Neut # (Auto) Lymph # (Auto) [place] # (Auto) Eos # (Auto) Baso # (Auto) Immature Gran % Nucleated RBC % Immature Gran # Nucleated RBCs # Immature Plt Fraction Sodium 137 Potassium 3.5 Chloride 91 L Carbon Dioxide 40 H Anion Gap 9.5 BUN 47 H Creatinine 2.40 H GFR Calculation 28 BUN/Creatinine Ratio 19.00 Glucose 236 H POC Glucose 243 H 303 H Calculated Osmolality 292.8 Calcium 7.8 L Magnesium 2.1 - Impressions Impressions: Telemetry with atrial fibrillation with ventricular spots fairly well controlled. We will continue to monitor this. - Diagnostic Findings Procedure: Chest x-ray: image reviewed by me, report reviewed by me - EKG EKG results: interpreted by me EKG shows: atrial fibrillation (With periods of atrial flutter) Quality Measures - VTE Contraindication to Pharmacological VTE Prophylaxis: Already on Theraputic Agent , No Prophylaxis Needed Specialty Discharge - Follow Up or Referrals I, Marek White MD, personally performed the services described in this documentation, ascribed by Alexandra Wise RN in my presence, and it is both accurate and complete [id number] .
[2016-12-09] MEDS: ATORVASTATIN 40 MG TABLET PO SCH (21:08)
[2016-12-09] MEDS: GABAPENTIN 300 MG CAPSULE PO SCH (21:08)
[2016-12-10] MEDS: DOBUTamine 500 MG/250 ML PREMIX IV SCH ×2 (04:59→16:10)
[2016-12-10 05:52] LABS: Calcium 7.9 MG/DL (8.5-10.1); Magnesium 2.3 MG/DL (1.8-2.4); Potassium 3.4 MMOL/L (3.5-5.1)
[2016-12-10] MEDS: INSULIN LISPRO 100 UNIT/ML SUBCUT SCH ×4 (07:59→21:12)
[2016-12-10] MEDS: INSULIN GLARGINE 100 UNIT/ML SUBCUT SCH (08:45)
[2016-12-10] MEDS: FENOFIBRATE 145 MG TABLET PO SCH (08:46)
[2016-12-10] MEDS: PANTOPRAZOLE 40 MG TABLET PO SCH (08:46)
[2016-12-10] MEDS: DOCUSATE SODIUM 100 MG CAPSULE PO SCH ×2 (08:46→21:12)
[2016-12-10] MEDS: sitaGLIPtin 25 MG TABLET PO SCH (08:46)
[2016-12-10] MEDS: ASPIRIN EC 81 MG TABLET PO SCH (08:46)
[2016-12-10] MEDS: CLOPIDOGREL 75 MG TABLET PO SCH (08:46)
[2016-12-10] MEDS: APIXABAN 5 MG TABLET PO SCH ×2 (08:46→21:12)
[2016-12-10] MEDS: ASCORBIC ACID 500 MG TABLET PO SCH (08:46)
--- NOTE | 2016-12-10 11:27 | Nephrology Progress Note ---
Nephrology - PN: Subj Interval history: She feels better overall. She denies shortness of breath. No chest pain Exam (PN)-Nephrology - Vital Signs Vital signs: Period Temp Pulse Resp BP Sys/Sosa Pulse Ox Last 24 Hr 96.3 F-98.4 F 77-108 18-20 83-99/47-60 92-98 Exam: ENT: Normal Cardiovascular: Irregularly irregular rhythm Lungs: Clear Extremities: 2+ edema - Lab 12/09/16 04:40 12/10/16 04:18 Most recent lab results Calcium 7.9 MG/DL (8.5-10.1) L 12/10/16 04:18 Magnesium 2.3 MG/DL (1.8-2.4) 12/10/16 04:18 Assessment and Plan (1) Chronic kidney disease, stage III (moderate) Status: Chronic Assessment and plan: 61-year-old woman with: * Ischemic cardiomyopathy. Ejection fraction 15-20% * Atrial fibrillation. Status post unsuccessful cardioversion * CRF 3. * ARF. Renal function has improved. Fluid balance remains negative. This is likely due to improved cardiac output with dobutamine. * Diabetes mellitus * Obesity Current Visit: Yes (2) ARF (acute renal failure) Status: Acute Current Visit: Yes (3) Ischemic cardiomyopathy Status: Chronic Current Visit: No (4) Status post coronary artery stent placement Status: Acute Current Visit: No (5) Diabetes Status: Chronic Current Visit: No Qualifiers: Diabetes mellitus type: type 2 (6) Obesity Status: Chronic Current Visit: No Qualifiers: Body mass index: BMI 40.0-44.9 (7) Atrial fibrillation with RVR Status: Resolved Current Visit: No Specialty Discharge - Follow Up or Referrals
[2016-12-10] MEDS: FUROSEMIDE 40 MG/4 ML VIAL IV SCH ×2 (12:13→22:30)
[2016-12-10] MEDS: CARVEDILOL 6.25 MG TABLET PO SCH (12:13)
[2016-12-10] MEDS: AMIODARONE 200 MG TABLET PO SCH ×2 (12:13→21:12)
--- NOTE | 2016-12-10 15:08 | Cardiology Progress Note ---
Frandy Reynolds Vanessa, RN, am scribing for, and in the presence of, Marek White MD 15:07. Assessment and Plan - Time spent with patient Time spent with patient: Greater than 30 minutes (1) Acute on chronic combined systolic (congestive) and diastolic (congestive) heart failure Status: Chronic Assessment and plan: Remains on IV dobutamine infusion in addition to aggressive diuresis with IV Lasix. EF 15-20%. Monitor daily weights, BMP, strict I/O. Fluid balance remains negative. Current Visit: Yes (2) Atrial fibrillation Status: Chronic Assessment and plan: Patient is status post synchronized cardioversion on October 28 for atrial fibrillation. Patient is currently admitted status post unsuccessful and elective cardioversion 2 after recurrence of atrial fibrillation. Continue medical management with amiodarone and anticoagulation with Eliquis. Continue to monitor and optimize electrolytes as needed. Ventricular response better controlled today 70s-80s. Current Visit: Yes (3) Chronic kidney disease, stage III (moderate) Status: Chronic Assessment and plan: Patient has a history of chronic and now progressive kidney disease with acute renal failure this admission.KELSEY inhibitors and ARBs have directly been avoided due to renal insufficiency. Initial creatinine 2.8 on admit. Nephrology has been consulted for evaluation and further recommendations. Appreciate assistance. Creatinine today reduced to 2.1. Current Visit: Yes (4) Ischemic cardiomyopathy Status: Chronic Assessment and plan: Ejection fraction 15-20%. Support with IV dobutamine infusion. Will continue aggressive diuresis with IV Lasix 80 mg twice daily. Current Visit: No (5) Diabetes Status: Chronic Assessment and plan: Glucose levels slightly reduced now 100-200s range. Continue routine Lantus insulin. Continue Humalog SSI. Accu-Cheks before meals at bedtime. Current Visit: No Qualifiers: Diabetes mellitus type: type 2 (6) Essential hypertension Status: Chronic Assessment and plan: Patient does have a history of chronic hypertension. Since admission, patient has been hypotensive with systolic BP 85 -100 mmHg. Patient is now on IV Dobutrex infusion, and today appears to have slightly improved cardiac output and his creatinine is decreased. Current Visit: No (7) Former smoker Status: Chronic Assessment and plan: Patient quit smoking 1 year ago. Reiterated importance and merits of cessation of all tobacco products. Current Visit: No (8) GERD (gastroesophageal reflux disease) Status: Chronic Assessment and plan: Continue PPI. Current Visit: No (9) Hyperlipidemia Status: Chronic Assessment and plan: Continue current plan of care with TriCor and atorvastatin. Current Visit: No (10) Obesity Status: Chronic Assessment and plan: Dietary counseling and caloric intake restriction. Current Visit: No Qualifiers: Body mass index: BMI 40.0-44.9 (11) CAD (coronary artery disease) Status: Chronic Assessment and plan: Patient is status post non-ST elevation CT in September 2016. She underwent stenting of proximal LAD and stenting of diagonal branch on October 09, [address] Gallardo. Continues to be without anginal complaint, and we will continue to monitor closely. Continue Plavix and low-dose ASA. Continue beta-angel and statin. Current Visit: Yes (12) Sleep disorder Status: Acute Assessment and plan: Patient has daytime somnolence, excessive snoring, and suspected sleep disorder. Is supposed to be scheduled for an appointment with sleep study Current Visit: Yes (13) Hypokalemia Status: Acute Assessment and plan: Mildly hypokalemic this morning per BMP. Will replete with K Dur 20 meq by mouth now and daily. Follow-up BMP and adjust supplement accordingly. Current Visit: Yes Cardiology - PN: Subj Interval history: PLACEMENT DIRECTOR: DR. GUTIÉRREZ SUMMARY: 61 year old NAF, PMHx hypertension and diabetes (poorly controlled), hyperlipidemia, chronic renal failure, suspected ZOLTAN, recent CT, and ischemic cardiomyopathy with EF of 10-20%. Status post PCI with stenting of LAD and diagonal branch in September 2016. Atrial fibrillation is new onset in May 2016, and this has been treated medically. She has had been cardioverted previously in October but had recurrence of atrial fibrillation. She presented to [facility] yesterday morning for elective cardioversion. Cardioversion was unsuccessful 2 attempts. However, lab work revealed that creatinine was elevated to 2.8 with BUN 42 (1.4 on December 04). Patient also had 3+ leg edema and chest x-ray with pulmonary edema. She was also having increasing dyspnea on exertion. Patient was admitted to [facility] telemetry from cardiac nursery laborer for further treatment of acute on chronic systolic and diastolic combined CHF and progression of chronic renal failure with acute injury. 2016: Patient is resting comfortably this afternoon in bed. Family member present at bedside with her. Patient is is no acute respiratory distress. Reports she is not having any shortness of breath, chest discomfort or pain. Does mention some right knee discomfort status post reported fall at home prior to hospitalization. Knee does have some mild bruising but no deformity or other abnormality. Bilateral lower extremity edema remains significant 3-4+. However , skin is not as taut as yesterday, and pedal edema is reduced. Blood pressure has been lower today with SBP 85-100 mmHg range. Was able to receive AM dose of Lasix and beta angel. Negative fluid balance. IV Dobutrex 3 mcgs/kg/min. Labs reviewed. Creatinine down to 2.1 (2.4 previously). Mild hypokalemia, 3.4. Remains in atrial fibrillation with overall controlled ventricular response 70s- 80s, occasional PVC. No ectopy or sustained dysrhythmia. Will continue to monitor and treat patient for acute on chronic systolic and diastolic CHF, ischemic cardiomyopathy, and acute on chronic renal failure. These are currently stable. ROS: -No chest pain -No dyspnea at rest -No orthopnea Patient personally interviewed and examined chart reviewed. Discussed case with Ms. Wise during the evaluation. Agree with this notes assessment and evaluation and plan. Patient Faisal I think is improving. She has had a good diuresis and even with aggressive diuresis and dobutamine her blood pressures remained stable. I think we can go up on the dobutamine to 5 mics per kilo per minute. We will see how she tolerates this and see if diuresis continues to do well. The go up higher and I would probably not want to go any higher than 8 mics. She has been placed on potassium replacement. We will get x-ray of her right knee she states bothers her after a fall few weeks ago. She was not evaluated post fall. Exam (Progress Note) - Constitutional Vitals: Period Temp Pulse Resp BP Sys/Sosa Pulse Ox Last 24 Hr 96.3 F-98.4 F 77-108 18-20 83-99/47-60 92-98 Exam: General appearance: no acute distress, morbidly obese - Head Head exam: Present: normal inspection. Absent: abrasion, contusion - Eye Eye exam: Present: EOMI. Absent: periorbital swelling, scleral icterus Pupils: Present: PHILLY. Absent: dilated, fixed - ENT ENT exam: Present: normal external ear exam - Neck Neck exam: Present: normal inspection. Absent: tenderness - Respiratory Respiratory exam: Present: rales (Bibasilarly). Absent: wheezes - Cardiovascular Cardiovascular exam: Present: irregular rhythm, tachycardia. Absent: bradycardia, JVD, systolic murmur - GI/Abdominal GI/Abdominal exam: Present: normal bowel sounds, other (Obese). Absent: ascites , distended, firm, tenderness - Extremities Exam Extremities exam: Present: normal capillary refill, edema (3-4+ bilateral lower extremities and pedal edema). Absent: full ROM, calf tenderness - Back Exam Back exam: Present: normal inspection - Neurological Exam Neurological exam: Present: alert, oriented X3 - Psychiatric Psychiatric exam: Present: normal affect, normal mood. Absent: agitated, anxious - Skin Skin exam: Present: warm, dry, intact. Absent: abrasion, cyanosis, diaphoretic , rash Result/EKG - Labs CBC & BMP: 12/09/16 04:40 12/10/16 04:18 Lab Results: I have reviewed the past 24 hour labs Labs: Laboratory Results - last 24 hr 12/09/16 12/09/16 12/10/16 15:09 19:13 04:18 Sodium 136 Potassium 3.4 L Chloride 86 L Carbon Dioxide 43 H Anion Gap 10.4 BUN 51 H Creatinine 2.10 H GFR Calculation 32 BUN/Creatinine Ratio 24.00 H Glucose 167 H POC Glucose 274 H 264 H Calculated Osmolality 289.0 Calcium 7.9 L Magnesium 2.3 12/10/16 12/10/16 07:16 11:16 Sodium Potassium Chloride Carbon Dioxide Anion Gap BUN Creatinine GFR Calculation BUN/Creatinine Ratio Glucose POC Glucose 170 H 282 H Calculated Osmolality Calcium Magnesium - EKG EKG results: interpreted by me EKG shows: atrial fibrillation (Ventricular response more controlled today 70s- 80s) Quality Measures - VTE Contraindication to Pharmacological VTE Prophylaxis: Already on Theraputic Agent , No Prophylaxis Needed Specialty Discharge - Follow Up or Referrals I, Maerk White MD, personally performed the services described in this documentation, ascribed by Alexandra Wise RN in my presence, and it is both accurate and complete [id number] .
[2016-12-10] MEDS: POTASSIUM CHLORIDE 20 MEQ TABLET PO SCH (16:09)
--- NOTE | 2016-12-10 16:57 | XRay Report ---
Exam: XR knee 2V RT Date: 12/10/2016 3:07 PM Comparison: None Indication: Knee pain after fall Technique:[AP and lateral right knee] Findings: Diffuse knee joint space narrowing with significant osteophytes and subchondral cyst formation. Multiple sclerotic ossific findings are noted medial to the medial femoral condyle. Lateral subluxation of the proximal tibia in relationship to the distal femur. Moderately large knee joint effusion with no conclusive acute fracture. Impression: Soft tissue swelling with moderately large knee joint effusion. Severe DJD with associated lateral subluxation of the proximal tibia in relation distal femur which is of questionable duration. Also there are are findings consistent with Carolann-Stieda calcification which can be seen with prior medial collateral ligament injury. No obvious acute fracture is identified but is symptoms persist, MRI may be helpful for further evaluation. PROCEDURE INTERPRETED AT [facility] [place] DEPARTMENT OF RADIOLOGY Final Report Signed by: Dr. Ericka Boo
[2016-12-10] MEDS: ATORVASTATIN 40 MG TABLET PO SCH (21:12)
[2016-12-10] MEDS: GABAPENTIN 300 MG CAPSULE PO SCH (21:12)
[2016-12-11] MEDS: CARVEDILOL 6.25 MG TABLET PO SCH ×3 (00:16→20:51)
[2016-12-11] MEDS: DOBUTamine 500 MG/250 ML PREMIX IV SCH ×4 (03:32→23:39)
[2016-12-11 05:36] LABS: Basophils % 0.3 % (0.0-0.8); Eosinophils # 0.1 10*3/uL (0.0-0.87); Eosinophils % 0.9 % (0.00-10.9); Hematocrit 34.5 VOL% (35.7-47.0); Hemoglobin 11.7 GM/DL (12.0-16.0); Immature Granulocytes % 0.5 %; Immature Granulocytes Absolute 0.04 #; Lymphocytes % 12.8 % (21.3-54.2); Mean Corpuscular HGB Conc 33.9 GM/DL (32-36); Mean Corpuscular Hemoglobin 31 PG (27-34); Mean Corpuscular Volume 89.8 FL (87-102); Monocytes % 12.7 % (1.7-12.7); Neutrophils # 5.8 10*3/uL (1.4-7.4); Neutrophils % 72.8 % (38.7-73.9); Platelet Count 335 T/CUMM (130-400); Red Blood Count 3.84 MC/CUMM (3.8-5.5); Red Cell Distribution Width 14.1 % (9.3-17.3); White Blood Count 7.9 T/CUMM (4-12)
[2016-12-11 06:07] LABS: Blood Urea Nitrogen 45 MG/DL (7-18); Calcium 7.8 MG/DL (8.5-10.1); Glucose 97 MG/DL (74-106); Magnesium 2.2 MG/DL (1.8-2.4); Potassium 3.4 MMOL/L (3.5-5.1); Sodium 136 MMOL/L (136-145)
[2016-12-11] MEDS: INSULIN LISPRO 100 UNIT/ML SUBCUT SCH ×4 (09:03→20:55)
[2016-12-11] MEDS: FUROSEMIDE 40 MG/4 ML VIAL IV SCH ×2 (09:11→15:10)
[2016-12-11] MEDS: FENOFIBRATE 145 MG TABLET PO SCH (09:12)
[2016-12-11] MEDS: POTASSIUM CHLORIDE 20 MEQ TABLET PO SCH (09:12)
[2016-12-11] MEDS: ASPIRIN EC 81 MG TABLET PO SCH (09:13)
[2016-12-11] MEDS: APIXABAN 5 MG TABLET PO SCH ×2 (09:13→20:51)
[2016-12-11] MEDS: PANTOPRAZOLE 40 MG TABLET PO SCH (09:13)
[2016-12-11] MEDS: sitaGLIPtin 25 MG TABLET PO SCH (09:13)
[2016-12-11] MEDS: DOCUSATE SODIUM 100 MG CAPSULE PO SCH ×2 (09:13→20:51)
[2016-12-11] MEDS: ASCORBIC ACID 500 MG TABLET PO SCH (09:13)
[2016-12-11] MEDS: AMIODARONE 200 MG TABLET PO SCH ×2 (09:14→20:51)
[2016-12-11] MEDS: INSULIN GLARGINE 100 UNIT/ML SUBCUT SCH (09:14)
[2016-12-11] MEDS: CLOPIDOGREL 75 MG TABLET PO SCH (09:21)
--- NOTE | 2016-12-11 10:40 | Nephrology Progress Note ---
Nephrology - PN: Subj Interval history: She denies shortness of breath or chest pain. Exam (PN)-Nephrology - Vital Signs Vital signs: Period Temp Pulse Resp BP Sys/Sosa Pulse Ox Last 24 Hr 96.4 F-98.9 F 97-129 16-20 90-108/53-62 92-100 Exam: ENT: Normal Cardiovascular: Irregularly irregular rhythm Lungs: Clear Extremities: No edema - Lab 12/11/16 05:05 12/11/16 05:05 Most recent lab results Calcium 7.8 MG/DL (8.5-10.1) L 12/11/16 05:05 Magnesium 2.2 MG/DL (1.8-2.4) 12/11/16 05:05 Assessment and Plan (1) Chronic kidney disease, stage III (moderate) Status: Chronic Assessment and plan: 61-year-old woman with: * Ischemic cardiomyopathy. Ejection fraction 15-20% * Atrial fibrillation. Status post unsuccessful cardioversion * CRF 3. * ARF. Renal function improving. Weight is not accurate. Fluid balance -3 L past 24 hours. She has developed metabolic alkalosis. IV diuretic will be decreased * Diabetes mellitus * Obesity Current Visit: Yes (2) ARF (acute renal failure) Status: Acute Current Visit: Yes (3) Ischemic cardiomyopathy Status: Chronic Current Visit: No (4) Status post coronary artery stent placement Status: Acute Current Visit: No (5) Diabetes Status: Chronic Current Visit: No Qualifiers: Diabetes mellitus type: type 2 (6) Obesity Status: Chronic Current Visit: No Qualifiers: Body mass index: BMI 40.0-44.9 (7) Atrial fibrillation with RVR Status: Resolved Current Visit: No Specialty Discharge - Follow Up or Referrals
[2016-12-11] MEDS ORDERED: POTASSIUM CHLORIDE 20 MEQ TABLET PO ONE (13:09)
--- NOTE | 2016-12-11 15:28 | Cardiology Progress Note ---
Frandy Reynolds Vanessa, RN, am scribing for, and in the presence of, Marek White MD 15:27. Assessment and Plan - Time spent with patient Time spent with patient: Greater than 30 minutes (1) Acute on chronic combined systolic (congestive) and diastolic (congestive) heart failure Status: Chronic Assessment and plan: Remains on IV dobutamine infusion in addition to aggressive diuresis with IV Lasix. EF 15-20%. Monitor daily weights, BMP, strict I/O. Fluid balance remains negative. Current Visit: Yes (2) Atrial fibrillation Status: Chronic Assessment and plan: Patient is status post synchronized cardioversion on October 28 for atrial fibrillation. Patient is currently admitted status post unsuccessful and elective cardioversion 2 after recurrence of atrial fibrillation. Continue medical management with amiodarone and anticoagulation with Eliquis. Continue to monitor and optimize electrolytes as needed. Ventricular response less controlled today 100-130. Current Visit: Yes (3) Chronic kidney disease, stage III (moderate) Status: Chronic Assessment and plan: Patient has a history of chronic and now progressive kidney disease with acute renal failure this admission.KELSEY inhibitors and ARBs have directly been avoided due to renal insufficiency. Initial creatinine 2.8 on admit. Nephrology has been consulted for evaluation and further recommendations. Appreciate assistance. Creatinine significantly reduced from 2.1 yesterday 1.7 this morning. Current Visit: Yes (4) Ischemic cardiomyopathy Status: Chronic Assessment and plan: Ejection fraction 15-20%. Support with IV dobutamine infusion which was increased to 5 mcg/kg/min yesterday. Will continue aggressive diuresis with IV Lasix 80 mg twice daily. Current Visit: No (5) Diabetes Status: Chronic Assessment and plan: Glucose levels slightly reduced now 100-200s range. Continue routine Lantus insulin. Continue Humalog SSI. Accu-Cheks before meals at bedtime. Current Visit: No Qualifiers: Diabetes mellitus type: type 2 (6) Essential hypertension Status: Chronic Assessment and plan: Patient does have a history of chronic hypertension. Since admission, patient has been hypotensive with systolic blood pressure increasing today, 110 range. Patient is now on IV Dobutrex infusion, appears to have slightly improved cardiac output, and her creatinine continues to decrease today. Current Visit: No (7) Former smoker Status: Chronic Assessment and plan: Patient quit smoking 1 year ago. Reiterated importance and merits of cessation of all tobacco products. Current Visit: No (8) GERD (gastroesophageal reflux disease) Status: Chronic Assessment and plan: Continue PPI. Current Visit: No (9) Hyperlipidemia Status: Chronic Assessment and plan: Continue current plan of care with TriCor and atorvastatin. Current Visit: No (10) Obesity Status: Chronic Assessment and plan: Dietary counseling and caloric intake restriction. Current Visit: No Qualifiers: Body mass index: BMI 40.0-44.9 (11) CAD (coronary artery disease) Status: Chronic Assessment and plan: Patient is status post non-ST elevation [place] in September 2016. She underwent stenting of proximal LAD and stenting of diagonal branch on October 09, [address] Gallardo. Continues to be without anginal complaint, and we will continue to monitor closely. Continue Plavix and low-dose ASA. Continue beta-angel and statin. Current Visit: Yes (12) Sleep disorder Status: Acute Assessment and plan: Patient has daytime somnolence, excessive snoring, and suspected sleep disorder. Is supposed to be scheduled for an appointment with sleep study. Hypercapneic with CO2 greater than 45 today. Current Visit: Yes (13) Hypokalemia Status: Acute Assessment and plan: Remains mildly hypokalemic today prior follow-up BMP. Will continue KDur 20 meq by mouth now and daily. Extra dose of KDur 20 meq x 1 this afternoon. Follow-up BMP in the morning. Current Visit: Yes Cardiology - PN: Subj Interval history: PUPPET ENGINEER: DR. GUTIÉRREZ SUMMARY: 61 year old NAF, PMHx hypertension and diabetes (poorly controlled), hyperlipidemia, chronic renal failure, suspected ZOLTAN, recent HI, and ischemic cardiomyopathy with EF of 10-20%. Status post PCI with stenting of LAD and diagonal branch in September 2016. Atrial fibrillation is new onset in May 2016, and this has been treated medically. She has had been cardioverted previously in October but had recurrence of atrial fibrillation. She presented to [facility] on December 08 for elective cardioversion. Cardioversion was unsuccessful 2 attempts. However, lab work revealed that creatinine was elevated to 2.8 with BUN 42 (1.4 on December 04). Patient also had 3+ leg edema and chest x-ray with pulmonary edema with complaints of increasing dyspnea on exertion. Patient was admitted to [facility] telemetry from cardiac biological lab technician for further treatment of acute on chronic systolic and diastolic combined CHF, EF 15-20%, and progression of chronic renal failure with acute injury. 2016: Patient is resting quietly this morning and is no acute respiratory distress. Using low dose supplemental oxygen this morning. Denies chest pain, dyspnea at rest, palpitations, dizziness. Only complaint this morning is of continued right knee discomfort. Knee x-ray yesterday with soft tissue swelling moderately large knee joint effusion but inconclusive for acute fracture. Right knee bruising with slight swelling is no worse than previous exam. BP somewhat improved today with SBP 110 mmHg range. IV Dobutamine was increased to 5 mcgs/kg /min yesterday. Review of tele: atrial fibrillation with ventricular response up to 130. Some self limited episodes of nonsustained VT overnight and this morning. Denies symptoms associated with this. I/O in EMR indicate continued negative fluid balance. Today no significant improvement of lower extremity. Labs reviewed. Continued mild hypokalemia, 3.4. Creatinine significantly improved, 1.7 (2.1 yesterday). Hypercapneic with CO2 greater than 45. Patient reports she has been told she has sleep apnea but does not use CPAP. Does use home O2 at night. Will continue to monitor and treat patient for acute on chronic combined CHF, acute renal failure, and ischemic cardiomyopathy. These are currently stable. ROS: -no chest pain -no dyspnea -no orthopnea Patient personally reviewed and examined chart reviewed in the presence of Alexandra Wise RN acting as scribe. I agree with the contents of this assessment and evaluation plan. In addition a because of severe EF we have been trying to diurese her using dobutamine. She has had a negative fluid balance. Her weight did decrease some. She still has a significant edema. Her blood pressures actually been stable with this therapy. Try some Zaroxolyn today and continue it tomorrow if she has good diuresis with this and vital signs remained stable. Her course is chronic atrial fibrillation and her ventricular responses up a little bit but will continue to monitor this. We will check lab work for Wednesday. Exam (Progress Note) - Constitutional Vitals: Period Temp Pulse Resp BP Sys/Sosa Pulse Ox Last 24 Hr 96.4 F-98.9 F 97-129 16-20 90-108/53-62 92-100 Exam: General appearance: no acute distress, severe morbidly obese; face is flushed today - Head Head exam: Present: normal inspection. Absent: abrasion, contusion - Eye Eye exam: Present: EOMI. Absent: periorbital swelling, scleral icterus Pupils: Present: PHILLY. Absent: dilated, fixed - ENT ENT exam: Present: normal external ear exam - Neck Neck exam: Present: normal inspection. Absent: tenderness - Respiratory Respiratory exam: Present: rales-improved (Bibasilarly). Absent: wheezes - Cardiovascular Cardiovascular exam: Present: irregular rhythm, tachycardia. Absent: bradycardia, JVD, systolic murmur - GI/Abdominal GI/Abdominal exam: Present: normal bowel sounds, other (Obese). Absent: ascites , distended, firm, tenderness - Extremities Exam Extremities exam: Present: normal capillary refill, edema (4 + bilateral lower extremities and pedal edema). Absent: full ROM, calf tenderness. Other: Ecchymotic bruising right knee - Back Exam Back exam: Present: normal inspection - Neurological Exam Neurological exam: Present: alert, oriented X3. Grossly intact. No resting tremor. - Psychiatric Psychiatric exam: Present: normal affect, normal mood. Absent: agitated, anxious - Skin Skin exam: Present: warm, dry, intact. Absent: abrasion, cyanosis, diaphoretic , rash Result/EKG - Labs CBC & BMP: 12/11/16 05:05 12/11/16 05:05 Lab Results: I have reviewed the past 24 hour labs Labs: Laboratory Results - last 24 hr 12/10/16 12/10/16 12/10/16 11:16 15:50 20:50 WBC RBC Hgb Hct MCV MCH MCHC RDW Plt Count MPV Neut % (Auto) Lymph % (Auto) [place] % (Auto) Eos % (Auto) Baso % (Auto) Neut # (Auto) Lymph # (Auto) [place] # (Auto) Eos # (Auto) Baso # (Auto) Immature Gran % Nucleated RBC % Immature Gran # Nucleated RBCs # Immature Plt Fraction Sodium Potassium Chloride Carbon Dioxide BUN Creatinine GFR Calculation BUN/Creatinine Ratio Glucose POC Glucose 282 H 205 H 213 H Calculated Osmolality Calcium Magnesium 12/11/16 12/11/16 12/11/16 05:05 05:05 07:35 WBC 7.9 RBC 3.84 Hgb 11.7 L Hct 34.5 L MCV 89.8 MCH 31 MCHC 33.9 RDW 14.1 Plt Count 335 MPV 11.0 Neut % (Auto) 72.8 Lymph % (Auto) 12.8 L [place] % (Auto) 12.7 Eos % (Auto) 0.9 Baso % (Auto) 0.3 Neut # (Auto) 5.8 Lymph # (Auto) 1.0 L [place] # (Auto) 1.0 H Eos # (Auto) 0.1 Baso # (Auto) 0.0 Immature Gran % 0.5 Nucleated RBC % 0.0 Immature Gran # 0.04 Nucleated RBCs # 0.00 Immature Plt Fraction 0.0 Sodium 136 Potassium 3.4 L Chloride 85 L Carbon Dioxide > 45 H BUN 45 H Creatinine 1.70 H GFR Calculation 42 BUN/Creatinine Ratio 26.00 H Glucose 97 POC Glucose 106 Calculated Osmolality 283.0 Calcium 7.8 L Magnesium 2.2 - Diagnostic Findings Procedure: X-ray: image reviewed by me, report reviewed by me (Knee x-ray : Moderately large knee joint effusion but no acute fracture) - EKG EKG results: interpreted by me, no acute changes EKG shows: atrial fibrillation (Ventricular response no greater than 115; transient episodes of NSVT) Quality Measures - VTE Contraindication to Pharmacological VTE Prophylaxis: Already on Theraputic Agent , No Prophylaxis Needed Specialty Discharge - Follow Up or Referrals Rodolfo, Marek White MD, personally performed the services described in this documentation, ascribed by Alexandra Wise RN in my presence, and it is both accurate and complete 527 .
[2016-12-11] MEDS: metOLazone 5 MG TABLET PO SCH (15:57)
[2016-12-11] MEDS: GABAPENTIN 300 MG CAPSULE PO SCH (20:51)
[2016-12-11] MEDS: ATORVASTATIN 40 MG TABLET PO SCH (20:51)
[2016-12-12] MEDS: DOBUTamine 500 MG/250 ML PREMIX IV SCH ×3 (03:59→16:58)
--- NOTE | 2016-12-12 08:25 | Cardiology Progress Note ---
Assessment and Plan (1) Acute on chronic combined systolic (congestive) and diastolic (congestive) heart failure Status: Chronic Assessment and plan: Continue low-dose to be met this time with diuresis. Continues to be a negative fluid balance. Current Visit: Yes (2) Atrial fibrillation Status: Chronic Assessment and plan: Chronic issue and is failed cardioversion. She has a significant cardiomyopathy. We will try to diurese the patient much as possible. May need to have Dr. Espinoza see the patient at some point after he diuresed the patient's much as possible. Question be also whether not an ablation would be appropriate for her where the AV node ablation or pulmonary vein ablation. Current Visit: Yes (3) Chronic kidney disease, stage III (moderate) Status: Chronic Assessment and plan: Patient has a history of chronic and now progressive kidney disease with acute renal failure this admission.KELSEY inhibitors and ARBs have directly been avoided due to renal insufficiency. Initial creatinine 2.8 on admit. Nephrology has been consulted for evaluation and further recommendations. Appreciate assistance. Creatinine significantly reduced from 2.1 yesterday 1.7 this morning. Chronic issue that probably exacerbated by diuresis. Current Visit: Yes (4) Ischemic cardiomyopathy Status: Chronic Assessment and plan: Ejection fraction 15-20%. Support with IV dobutamine infusion which was increased to 5 mcg/kg/min yesterday. Will continue aggressive diuresis with IV Lasix 80 mg twice daily. Question whether not this patient would be a candidate for AICD. Based on previous QRS duration she is not a candidate for resynchronization therapy. Current Visit: No (5) Diabetes Status: Chronic Assessment and plan: Glucose levels slightly reduced now 100-200s range. Continue routine Lantus insulin. Continue Humalog SSI. Accu-Cheks before meals at bedtime. Current Visit: No Qualifiers: Diabetes mellitus type: type 2 (6) Essential hypertension Status: Chronic Assessment and plan: Patient blood pressure stable at this time. We will concerned that her pressures were dropped with a dobutamine and diuresis but it is not. Current Visit: No (7) Former smoker Status: Chronic Assessment and plan: Patient quit smoking 1 year ago. Reiterated importance and merits of cessation of all tobacco products. Current Visit: No (8) GERD (gastroesophageal reflux disease) Status: Chronic Assessment and plan: Continue PPI. Current Visit: No (9) Hyperlipidemia Status: Chronic Assessment and plan: Continue current plan of care with TriCor and atorvastatin. Current Visit: No (10) Obesity Status: Chronic Assessment and plan: Dietary counseling and caloric intake restriction. Current Visit: No Qualifiers: Body mass index: BMI 40.0-44.9 (11) CAD (coronary artery disease) Status: Chronic Assessment and plan: Patient is status post non-ST elevation [place] in September 2016. She underwent stenting of proximal LAD and stenting of diagonal branch on October 09, [address] Gallardo. Continues to be without anginal complaint, and we will continue to monitor closely. Continue Plavix and low-dose ASA. Continue beta-angel and statin. Current Visit: Yes (12) Sleep disorder Status: Acute Assessment and plan: Patient has daytime somnolence, excessive snoring, and suspected sleep disorder. Is supposed to be scheduled for an appointment with sleep study. Hypercapneic with CO2 greater than 45 today. Current Visit: Yes (13) Hypokalemia Status: Acute Assessment and plan: Remains mildly hypokalemic today prior follow-up BMP. Will continue KDur 20 meq by mouth now and daily. Extra dose of KDur 20 meq x 1 this afternoon. Follow-up BMP in the morning. Current Visit: Yes (14) Pain of right knee after injury Status: Acute Assessment and plan: Patient had a fall and injured me just a 2-3 weeks ago. X-ray without real specific abnormality is. We will ask orthopedic surgery see the patient. Current Visit: Yes Cardiology - PN: Subj Interval history: Patient generally feeling pretty well. No specific complaints today. No shortness of breath. No chest pain nausea. Appetite is fairly good. The family comments about that her swelling is so much better. Will continue to push her diuresis much as we can. Patient remains on metolazone and IV Lasix as well as dobutamine. She is in negative fluid balance based on her I and o's. I do not see with aware her weight is really made much change. We have been continue the metolazone was restarted yesterday. She has lab work ordered for tomorrow. Vital signs blood pressures been stable with this. She has some right knee pain from prior trauma. X-ray did not reveal any specific pathology. May have orthopedic surgery see them over the weekend. Still having some pain. Exam (Progress Note) - Constitutional Vitals: Period Temp Pulse Resp BP Sys/Sosa Pulse Ox Last 24 Hr 96.9 F-98.9 F 89-114 16-20 98-114/53-74 90-97 Exam: General appearance: Obese female lying in bed HEENT exam: normal inspection, atraumatic Neck exam: Short thick neck making exam difficult but no gross bruits. Respiratory/lungs exam: clear to auscultation bilaterally and anteriorly good air movement. Cardiovascular exam: Irregular rhythm without gross audible murmur. Chest wall exam: nontender GI/Abdominal exam: Obese soft nontender with bowel sounds present. Extremeties/musculoskeletal: Bilateral lower extremity edema. This though is much better. Neurological exam: alert, oriented X3, no focal deficits Psychiatric exam: normal affect, normal mood. Cognitive function is grossly normal. Skin exam: normal color, warm Result/EKG - Labs CBC & BMP: 12/11/16 05:05 12/11/16 05:05 Labs: Laboratory Results - last 24 hr 12/11/16 12/11/16 12/11/16 12:03 15:55 20:50 POC Glucose 216 H 148 H 180 H 12/12/16 07:49 POC Glucose 154 H - Impressions Impressions: Telemetry with atrial fibrillation. Rates are variable and somewhat increased. This may be related to dobutamine. There is an episode of probably nonsustained ventricular tachycardia yesterday. Quality Measures - VTE Contraindication to Pharmacological VTE Prophylaxis: Already on Theraputic Agent , No Prophylaxis Needed Specialty Discharge - Follow Up or Referrals
--- NOTE | 2016-12-12 09:06 | Nephrology Progress Note ---
Nephrology - PN: Subj Interval history: Patient is resting comfortably no acute changes. Serum creatinine is 1.7 which stable. She voices no complaints to me this morning. Exam (PN)-Nephrology - Vital Signs Vital signs: Period Temp Pulse Resp BP Sys/Sosa Pulse Ox Last 24 Hr 96.9 F-98.9 F 89-114 16-20 98-114/53-74 90-97 - General Appearance General appearance: well-developed, well-nourished EENT: ATNC Neck: supple Respiratory: clear Cardiology: regular rate, regular rhythm Gastrointestinal: normoactive bowel sounds, no tenderness Neurologic: alert and oriented x3 Psychiatric: mood/affect appropriate - Lab 12/11/16 05:05 12/11/16 05:05 Most recent lab results Calcium 7.8 MG/DL (8.5-10.1) L 12/11/16 05:05 Magnesium 2.2 MG/DL (1.8-2.4) 12/11/16 05:05 Assessment and Plan (1) Essential hypertension Status: Chronic Current Visit: No (2) Obesity Status: Chronic Current Visit: No Qualifiers: Body mass index: BMI 40.0-44.9 (3) GERD (gastroesophageal reflux disease) Status: Chronic Current Visit: No (4) Chronic kidney disease, stage III (moderate) Status: Chronic Assessment and plan: Renal function is stable. Current Visit: Yes Specialty Discharge - Follow Up or Referrals
[2016-12-12] MEDS: ASCORBIC ACID 500 MG TABLET PO SCH (09:46)
[2016-12-12] MEDS: FUROSEMIDE 40 MG/4 ML VIAL IV SCH ×2 (09:47→16:57)
[2016-12-12] MEDS: CLOPIDOGREL 75 MG TABLET PO SCH (09:49)
[2016-12-12] MEDS: DOCUSATE SODIUM 100 MG CAPSULE PO SCH ×2 (09:50→19:59)
[2016-12-12] MEDS: sitaGLIPtin 25 MG TABLET PO SCH (09:50)
[2016-12-12] MEDS: POTASSIUM CHLORIDE 20 MEQ TABLET PO SCH (09:50)
[2016-12-12] MEDS: metOLazone 5 MG TABLET PO SCH (09:51)
[2016-12-12] MEDS: APIXABAN 5 MG TABLET PO SCH ×2 (09:51→19:59)
[2016-12-12] MEDS: CARVEDILOL 6.25 MG TABLET PO SCH ×2 (09:51→19:59)
[2016-12-12] MEDS: PANTOPRAZOLE 40 MG TABLET PO SCH (09:51)
[2016-12-12] MEDS: AMIODARONE 200 MG TABLET PO SCH ×2 (09:51→19:59)
[2016-12-12] MEDS: FENOFIBRATE 145 MG TABLET PO SCH (09:51)
[2016-12-12] MEDS: ASPIRIN EC 81 MG TABLET PO SCH (09:51)
[2016-12-12] MEDS: INSULIN GLARGINE 100 UNIT/ML SUBCUT SCH (09:57)
[2016-12-12] MEDS: INSULIN LISPRO 100 UNIT/ML SUBCUT SCH ×4 (12:14→20:00)
[2016-12-12] MEDS: GABAPENTIN 300 MG CAPSULE PO SCH (19:59)
[2016-12-12] MEDS: ATORVASTATIN 40 MG TABLET PO SCH (19:59)
[2016-12-13] MEDS: DOBUTamine 500 MG/250 ML PREMIX IV SCH ×3 (02:34→18:03)
[2016-12-13 05:46] LABS: Blood Urea Nitrogen 42 MG/DL (7-18); Calcium 8.2 MG/DL (8.5-10.1); Glucose 100 MG/DL (74-106); Magnesium 2.4 MG/DL (1.8-2.4); Potassium 3.4 MMOL/L (3.5-5.1); Sodium 136 MMOL/L (136-145)
[2016-12-13] MEDS: FUROSEMIDE 40 MG/4 ML VIAL IV SCH ×2 (09:00→17:50)
[2016-12-13] MEDS: PANTOPRAZOLE 40 MG TABLET PO SCH (09:01)
[2016-12-13] MEDS: ASPIRIN EC 81 MG TABLET PO SCH (09:02)
[2016-12-13] MEDS: ASCORBIC ACID 500 MG TABLET PO SCH (09:02)
[2016-12-13] MEDS: FENOFIBRATE 145 MG TABLET PO SCH (09:02)
[2016-12-13] MEDS: metOLazone 5 MG TABLET PO SCH (09:02)
[2016-12-13] MEDS: CLOPIDOGREL 75 MG TABLET PO SCH (09:02)
[2016-12-13] MEDS: sitaGLIPtin 25 MG TABLET PO SCH (09:03)
[2016-12-13] MEDS: APIXABAN 5 MG TABLET PO SCH ×2 (09:03→20:24)
[2016-12-13] MEDS: AMIODARONE 200 MG TABLET PO SCH ×2 (09:03→20:25)
[2016-12-13] MEDS: POTASSIUM CHLORIDE 20 MEQ TABLET PO SCH (09:03)
[2016-12-13] MEDS: CARVEDILOL 6.25 MG TABLET PO SCH ×2 (09:03→20:24)
[2016-12-13] MEDS: INSULIN LISPRO 100 UNIT/ML SUBCUT SCH ×4 (09:19→20:25)
[2016-12-13] MEDS: INSULIN GLARGINE 100 UNIT/ML SUBCUT SCH (09:20)
--- NOTE | 2016-12-13 10:47 | Nephrology Progress Note ---
Nephrology - PN: Subj Interval history: Patient is resting comfortably no acute changes. Serum creatinine is 1.7 which stable. She voices no complaints to me this morning. 12/13/2016. The patient is resting comfortably. No acute changes. Serum creatinine is 1.6 which is stable. Exam (PN)-Nephrology - Vital Signs Vital signs: Period Temp Pulse Resp BP Sys/Sosa Pulse Ox Last 24 Hr 97.9 F-98.5 F 92-134 16-20 97-115/55-67 92-98 - General Appearance General appearance: well-developed, well-nourished EENT: ATNC Neck: supple Respiratory: clear Cardiology: regular rate, regular rhythm Gastrointestinal: normoactive bowel sounds, no tenderness, no guarding Neurologic: alert and oriented x3 Musculoskeletal: no deformities Psychiatric: mood/affect appropriate, cooperative - Lab 12/11/16 05:05 12/13/16 04:45 Most recent lab results Calcium 8.2 MG/DL (8.5-10.1) L 12/13/16 04:45 Magnesium 2.4 MG/DL (1.8-2.4) 12/13/16 04:45 Assessment and Plan (1) Essential hypertension Status: Chronic Current Visit: No (2) Obesity Status: Chronic Current Visit: No Qualifiers: Body mass index: BMI 40.0-44.9 (3) GERD (gastroesophageal reflux disease) Status: Chronic Current Visit: No (4) Chronic kidney disease, stage III (moderate) Status: Chronic Assessment and plan: Renal function is stable. Current Visit: Yes Specialty Discharge - Follow Up or Referrals
[2016-12-13] MEDS ORDERED: POTASSIUM CHLORIDE 20 MEQ TABLET PO ONE (12:44)
--- NOTE | 2016-12-13 13:16 | Cardiology Progress Note ---
Assessment and Plan (1) Acute on chronic combined systolic (congestive) and diastolic (congestive) heart failure Status: Chronic Assessment and plan: This continues to improve from a clinical standpoint and from volume standpoint with her present therapy which will continue to reassess her dobutamine tomorrow. Current Visit: Yes (2) Atrial fibrillation Status: Chronic Assessment and plan: Chronic issue with her cardiomyopathy makes it difficult to manage. Her ventricular response is little higher than we would like at times but medications to manage his father may actually exacerbate her her hypotension. I have been hesitant to place her on digoxin with her renal dysfunction. This though would be an option but would have to be monitoring her levels closely. Current Visit: Yes (3) Chronic kidney disease, stage III (moderate) Status: Chronic Assessment and plan: Her BUN is a flap her creatinine is actually decreased significantly with present therapy. Nephrology is following with us. Current Visit: Yes (4) Ischemic cardiomyopathy Status: Chronic Assessment and plan: Ejection fraction 15-20%. At present with supporting this with dobutamine to see if we can actually improve diuresis which we appear to have done so. Current Visit: No (5) Diabetes Status: Chronic Assessment and plan: Glucose levels slightly reduced now 100-200s range. Continue present therapy. Current Visit: No Qualifiers: Diabetes mellitus type: type 2 (6) Essential hypertension Status: Chronic Assessment and plan: Hypertension has not been an issue in recent history. Current Visit: No (7) Former smoker Status: Chronic Assessment and plan: Patient quit smoking 1 year ago. Reiterated importance and merits of cessation of all tobacco products. Current Visit: No (8) GERD (gastroesophageal reflux disease) Status: Chronic Assessment and plan: Continue PPI. Current Visit: No (9) Hyperlipidemia Status: Chronic Assessment and plan: Continue current plan of care with TriCor and atorvastatin. Current Visit: No (10) Obesity Status: Chronic Assessment and plan: Dietary counseling and caloric intake restriction. Patient certainly improve her feel better about losing weight. Current Visit: No Qualifiers: Body mass index: BMI 40.0-44.9 (11) CAD (coronary artery disease) Status: Chronic Assessment and plan: Patient is status post non-ST elevation [place] in September 2016. She underwent stenting of proximal LAD and stenting of diagonal branch on October 09, [address] Gallardo. Continues to be without anginal complaint, and we will continue to monitor closely while in the hospital. Continue her dual antiplatelet therapy as well as risk factor modification. Current Visit: Yes (12) Sleep disorder Status: Acute Assessment and plan: Patient has daytime somnolence, excessive snoring, and suspected sleep disorder. Is supposed to be scheduled for an appointment with sleep study. Hypercapneic with CO2 greater than 45 today. Current Visit: Yes (13) Hypokalemia Status: Acute Assessment and plan: We are replacing this and adjusting potassium replacement levels. Current Visit: Yes (14) Pain of right knee after injury Status: Acute Assessment and plan: Orthopedic surgery has been consulted but has not seen the patient yet. Current Visit: Yes Cardiology - PN: Subj Interval history: Patient generally doing well. She is staying in bed but physical therapy is working with her. Potassium a little low today we will replace this. She continues apparently to diurese having negative inodes but I am not real sure how accurate these are. Patient denies drinking much fluid in general she states she feels better. Certainly on exam she is having much less edema. Again the family states I think she is doing much better. With her present therapy her BUN is remained flat and her creatinine is actually diminished from the start of 2.8-1.6. Her potassium a little low vergae increase her potassium replacement. We will recheck her labs tomorrow. Tomorrow we will need to reevaluate her deviating status will not go ahead and wean her off or stop it and continue the diuretics. I discussed these findings with the patient and her family. Orthopedic surgery has been consulted but has not seen the patient yet. Exam (Progress Note) - Constitutional Vitals: Period Temp Pulse Resp BP Sys/Sosa Pulse Ox Last 24 Hr 98 F-99.1 F 92-134 16-20 87-110/55-67 92-98 Exam: General appearance: Obese female lying in bed HEENT exam: normal inspection, atraumatic Neck exam: Short thick neck making exam difficult but no gross bruits. Respiratory/lungs exam: clear to auscultation bilaterally and anteriorly good air movement. Cardiovascular exam: Irregular rhythm without gross audible murmur. Chest wall exam: nontender GI/Abdominal exam: Obese soft nontender with bowel sounds present. Extremeties/musculoskeletal: Bilateral lower extremity edema that is trace to 1 + pretibial but still has some posterior thigh edema but this too is improved. Neurological exam: alert, oriented X3, no focal deficits Psychiatric exam: normal affect, normal mood. Cognitive function is grossly normal. Skin exam: normal color, warm Result/EKG - Labs CBC & BMP: 12/11/16 05:05 12/13/16 04:45 Lab Results: I have reviewed the past 24 hour labs Labs: Laboratory Results - last 24 hr 12/12/16 12/12/16 12/12/16 11:36 16:19 19:04 Sodium Potassium Chloride Carbon Dioxide BUN Creatinine GFR Calculation BUN/Creatinine Ratio Glucose POC Glucose 214 H 112 H 159 H Calculated Osmolality Calcium Magnesium 12/13/16 12/13/16 12/13/16 04:45 07:24 11:27 Sodium 136 Potassium 3.4 L Chloride 82 L Carbon Dioxide > 45 H BUN 42 H Creatinine 1.60 H GFR Calculation 45 BUN/Creatinine Ratio 26.00 H Glucose 100 POC Glucose 95 161 H Calculated Osmolality 282.0 Calcium 8.2 L Magnesium 2.4 - Impressions Impressions: Telemetry atrial fibrillation with variable ventricular response. She has had some nonsustained ventricular tachycardia fact that she had one 5 beat run. She does have occasional isolated PVCs. Quality Measures - VTE Contraindication to Pharmacological VTE Prophylaxis: Already on Theraputic Agent , No Prophylaxis Needed Specialty Discharge - Follow Up or Referrals
[2016-12-13] MEDS: DOCUSATE SODIUM 100 MG CAPSULE PO SCH ×2 (14:32→20:24)
[2016-12-13] MEDS: GABAPENTIN 300 MG CAPSULE PO SCH (20:24)
[2016-12-13] MEDS: ATORVASTATIN 40 MG TABLET PO SCH (20:24)
[2016-12-14] MEDS: DOBUTamine 500 MG/250 ML PREMIX IV SCH ×3 (02:07→14:36)
[2016-12-14 06:44] LABS: Blood Urea Nitrogen 46 MG/DL (7-18); Calcium 7.9 MG/DL (8.5-10.1); Glucose 111 MG/DL (74-106); Osmolality,Calculated 282.1 MOS/KG (273-304); Potassium 3.4 MMOL/L (3.5-5.1); Sodium 135 MMOL/L (136-145)
[2016-12-14] MEDS: FUROSEMIDE 40 MG/4 ML VIAL IV SCH ×2 (08:51→17:02)
[2016-12-14] MEDS: INSULIN GLARGINE 100 UNIT/ML SUBCUT SCH (08:51)
[2016-12-14] MEDS: ASCORBIC ACID 500 MG TABLET PO SCH (08:52)
[2016-12-14] MEDS: POTASSIUM CHLORIDE 20 MEQ TABLET PO SCH (08:52)
[2016-12-14] MEDS: FENOFIBRATE 145 MG TABLET PO SCH (08:52)
[2016-12-14] MEDS: ASPIRIN EC 81 MG TABLET PO SCH (08:52)
[2016-12-14] MEDS: sitaGLIPtin 25 MG TABLET PO SCH (08:52)
[2016-12-14] MEDS: CLOPIDOGREL 75 MG TABLET PO SCH (08:53)
[2016-12-14] MEDS: CARVEDILOL 6.25 MG TABLET PO SCH ×2 (08:53→21:53)
[2016-12-14] MEDS: PANTOPRAZOLE 40 MG TABLET PO SCH (08:53)
[2016-12-14] MEDS: DOCUSATE SODIUM 100 MG CAPSULE PO SCH ×2 (08:53→21:53)
[2016-12-14] MEDS: APIXABAN 5 MG TABLET PO SCH ×2 (08:53→21:52)
[2016-12-14] MEDS: metOLazone 5 MG TABLET PO SCH (08:53)
[2016-12-14] MEDS: AMIODARONE 200 MG TABLET PO SCH ×2 (08:53→21:52)
[2016-12-14] MEDS: INSULIN LISPRO 100 UNIT/ML SUBCUT SCH ×4 (10:02→21:53)
--- NOTE | 2016-12-14 12:28 | Orthopedic Consult Note ---
History of Present Illness Chief complaint: Right knee pain History of present illness: Ms. Light is a 61 year old female who has ischemic cardiomyopathy, atrial fibrillation and congestive heart failure. She has had a long history of right knee pain. She has undergone a previous right knee arthroscopy by Dr. Prabhu Perez. She has fallen times. She uses a Rollator walker to get around. She has been seen at [facility] emergency room recently and given a knee immobilizer. Home Medications Medication Instructions Recorded Confirmed Type Albuterol Inhaler [Proventil 2 puff INH DAILY PRN 10/06/16 12/08/16 History Inhaler] Fenofibrate [Tricor] 145 mg PO DAILY 10/06/16 12/08/16 History Gabapentin 600 mg PO BEDTIME 10/06/16 12/08/16 History Insulin Detemir [Levemir FlexPen] 45 unit SUBCUT DAILY 10/06/16 12/08/16 History Ipratropium/Albuterol Sulfate 3 ml IH Q4H PRN 10/06/16 12/08/16 History [Iprat-Albut 0.5-3(2.5) mg/3 ml] Omeprazole [Prilosec] 20 mg PO DAILY 10/06/16 12/08/16 History Saxagliptin HCl [Onglyza] 5 mg PO DAILY 10/06/16 12/08/16 History Amiodarone Tab [Cordarone Tab] 200 mg PO BID #60 tablet 10/12/16 12/08/16 Rx Apixaban [Eliquis] 5 mg PO BID #60 tablet 10/12/16 12/08/16 Rx Ascorbic Acid Tab [Vitamin C Tab] 1,000 mg PO DAILY #30 tablet 10/12/16 Rx Aspirin EC Tab 81 mg PO DAILY #30 tablet 10/12/16 12/08/16 Rx Clopidogrel [Plavix] 75 mg PO DAILY #30 tablet 10/12/16 12/08/16 Rx Furosemide 80 mg PO BID 10/28/16 12/08/16 History Ascorbic Acid Tab [Vitamin C Tab] 1,000 mg PO DAILY 12/08/16 12/08/16 History Omeprazole 20 mg PO DAILY 12/08/16 12/08/16 History Potassium Chloride Cap/Tab [K Dur] 20 meq PO BID 12/08/16 12/08/16 History Simvastatin 40 mg PO BEDTIME 12/08/16 12/08/16 History metOLazone [Metolazone] 5 mg PO DAILY 12/08/16 12/08/16 History Allergies Allergy/AdvReac Type Severity Reaction Status Date / Time No Known Allergies Allergy Verified 12/08/16 12:49 12 point system: reviewed and no additional remarkable complaints except as stated Medical,Surgical,& Family Hx - Medical History Cardio: History of: CHF, Hypertension, [place] Neurology: No history of: Seizures Endocrine: History of: Diabetes Mellitus (NIDDM), Dyslipidemia Gastrointestinal: History of: GERD - Family History Family History: Reports;: Family Diabetes, Family Hypertension, Family Stroke - Social History Smoking Status: Former smoker Frequency of Alcohol Use: None Type of Drug Use: None Exam - Constitutional Vitals: Period Temp Pulse Resp BP Sys/Sosa Pulse Ox Last 24 Hr 97.5 F-99.3 F 99-137 18-20 98-118/58-70 90-99 Exam: Alert and oriented. Right knee is very tender. She has a mild effusion. She has limited range of motion secondary to pain. Knee is stable. She has difficulty performing a straight leg raise secondary to pain. Radiographs show severe tricompartmental degenerative change with osteophyte formation. Impression: Severe right knee tricompartmental osteoarthritis Plan: I have agree with physical therapy when she is cleared from a cardiology standpoint. I've added tramadol. If her cadiac function ever improves, she would benefit from total knee arthroplasty. Results - Labs CBC & BMP: 12/11/16 05:05 12/14/16 04:57 Specialty Discharge - Follow Up or Referrals
[2016-12-14] MEDS ORDERED: traMADol 50 MG TABLET PO PRN (12:30)
--- NOTE | 2016-12-14 13:22 | Nephrology Progress Note ---
Nephrology - PN: Subj Interval history: She denies shortness of breath at rest. She complains of right knee pain Exam (PN)-Nephrology - Vital Signs Vital signs: Period Temp Pulse Resp BP Sys/Sosa Pulse Ox Last 24 Hr 97.5 F-99.3 F 99-137 18-20 98-118/58-70 90-99 Exam: Gen.: Alert and oriented x3. ENT: Pupils equal round reactive to light. EOMs intact. Mucous membranes moist. Neck: Supple. No JVD or bruit. Cardiovascular: Irregularly irregular Lungs: Clear Abdomen: Soft. Nontender. Positive bowel sounds. No organomegaly Extremities: 2+ edema - Lab 12/11/16 05:05 12/14/16 04:57 Most recent lab results Calcium 7.9 MG/DL (8.5-10.1) L 12/14/16 04:57 Magnesium 2.4 MG/DL (1.8-2.4) 12/13/16 04:45 Assessment and Plan (1) Chronic kidney disease, stage III (moderate) Status: Chronic Assessment and plan: 61-year-old woman with: * Ischemic cardiomyopathy. Ejection fraction 15-20% * Atrial fibrillation. Status post unsuccessful cardioversion * CRF 3. * ARF. Renal function improved with increased cardiac output after dobutamine started. Her creatinine is slightly higher today. Her weights are not accurate. Fluid balance is negative by 10 L over the past 5 days. She has a significant metabolic alkalosis with serum bicarbonate 51. She is on fluid restriction. Diuretic should be decreased * Diabetes mellitus * Obesity Current Visit: Yes (2) ARF (acute renal failure) Status: Acute Current Visit: Yes (3) Ischemic cardiomyopathy Status: Chronic Current Visit: No (4) Status post coronary artery stent placement Status: Acute Current Visit: No (5) Diabetes Status: Chronic Current Visit: No Qualifiers: Diabetes mellitus type: type 2 (6) Obesity Status: Chronic Current Visit: No Qualifiers: Body mass index: BMI 40.0-44.9 (7) Atrial fibrillation with RVR Status: Resolved Current Visit: No Specialty Discharge - Follow Up or Referrals
[2016-12-14] MEDS ORDERED: DIGOXIN 0.25 MG TABLET PO ONE (15:13)
--- NOTE | 2016-12-14 17:07 | Cardiology Progress Note ---
Frandy Reynolds Vanessa, RN, am scribing for, and in the presence of, Lionel Espinoza MD 17 :07. Assessment and Plan - Time spent with patient Time spent with patient: Greater than 30 minutes (1) Acute on chronic combined systolic (congestive) and diastolic (congestive) heart failure Status: Chronic Assessment and plan: 61 year old NAF, severe morbid obesity, sleep disorder, HTN, HLD, DM, CKD III, persistent AF. Recent NSTEMI with stenting x 2 to LAD and diagonal and iscemic cardiomyopathy, EF 10-20%. Now admitted with acute on chronic combined CHF and ROGERIO. Has shown improvement with IV diuresis and IV Dobutrex. EKG: AF w/ ventricular response 100-140. PVCs, NSVT -CHF- continue IV diuresis. & metolazone. Diuresing fairly well. Stopped dobutamine, start p.o. digoxin load. Heart rate was difficult to control and lots of ventricular ectopy. She does not appear to be hypoperfused on exam. -AF - ventricular response uncontrolled at times. Start digoxin 0.25 mg PO now and in 6 hours, digoxin 0.125 mg PO. In AM, start digoxin 0.125 mg PO daily. Continue Eliquis & amiodarone. -Hypercapnia - twitching of upper ext's today with CO2 increasing, 51. Sleep medicine consult. Avoid excessive supplemental oxygen. Suspect ZOLTAN/OHS. May need ABG, will defer to sleep/pulm eval. -ROGERIO- creatinine trending upward today. IV Lasix decreased today per nephrology. -Hypokalemia- mild. Increased KDur 40 meq PO daily. Follow up BMP -CAD- EKG stable. Continue statin, Plavix, low dose ASA -right knee OA- ortho consult. PT. May need knee arthoplasty in future once cardiac stable. Current Visit: Yes (2) Atrial fibrillation Status: Chronic Assessment and plan: SEE PLAN OF CARE LISTED ABOVE. Current Visit: Yes (3) Chronic kidney disease, stage III (moderate) Status: Chronic Assessment and plan: SEE PLAN OF CARE LISTED ABOVE. Current Visit: Yes (4) Ischemic cardiomyopathy Status: Chronic Assessment and plan: SEE PLAN OF CARE LISTED ABOVE. Current Visit: No (5) Diabetes Status: Chronic Assessment and plan: SEE PLAN OF CARE LISTED ABOVE. Current Visit: No Qualifiers: Diabetes mellitus type: type 2 (6) Essential hypertension Status: Chronic Assessment and plan: SEE PLAN OF CARE LISTED ABOVE. Current Visit: No (7) Former smoker Status: Chronic Assessment and plan: SEE PLAN OF CARE LISTED ABOVE. Current Visit: No (8) GERD (gastroesophageal reflux disease) Status: Chronic Assessment and plan: SEE PLAN OF CARE LISTED ABOVE. Current Visit: No (9) Hyperlipidemia Status: Chronic Assessment and plan: SEE PLAN OF CARE LISTED ABOVE. Current Visit: No (10) Obesity Status: Chronic Assessment and plan: SEE PLAN OF CARE LISTED ABOVE. Current Visit: No Qualifiers: Body mass index: BMI 40.0-44.9 (11) CAD (coronary artery disease) Status: Chronic Assessment and plan: SEE PLAN OF CARE LISTED ABOVE. Current Visit: Yes (12) Sleep disorder Status: Acute Assessment and plan: SEE PLAN OF CARE LISTED ABOVE. Current Visit: Yes (13) Hypokalemia Status: Acute Assessment and plan: SEE PLAN OF CARE LISTED ABOVE. Current Visit: Yes Cardiology - PN: Subj Interval history: Production Control Expert: Dr. Soria SUMMARY: 61-year-old NAF, PMHx hypertension and diabetes (poorly controlled), hyperlipidemia, CRF, suspected ZOLTAN, recent non-ST elevation [place], and ischemic cardiomyopathy with EF 10-20%. Status post PCI with stenting of LAD and diagonal branch in September 2016. Atrial fibrillation with new onset in May 2016 and is treated medically. Previous cardioversion in October and has now had recurrence of atrial fib. Patient was admitted to [facility] telemetry on 12/08 after unsuccessful elective cardioversion [address] Soria. Lab work on the day of admission revealed elevated creatinine and worsening of CHF. Patient is admitted for further treatment of acute on chronic systolic and diastolic CHF, EF 15-20%, and progression of chronic renal failure with ROGERIO. Since admission, patient has improved with IV diuresis, IV dobutamine, and cardiac output has improved. December: Patient is resting quietly in bed this afternoon. No acute respiratory distress noted. Son is present with her this afternoon. Bilateral upper ext's with resting tremor. She is not having any chest pain, resting dyspnea, or other cardiac complaint. Biggest complaint today is right knee pain. Ortho consult is pending today. Labs reviewed. Hypokalemic, 3.4. CO2 51. Creatinine trending upward again, 1.8. We will continue to monitor and treat patient for systolic and diastolic CHF, acute kidney injury, and cardiomyopathy. These are currently stable. ROS: -denies chest pain -denies dyspnea -denies abd pain Exam (Progress Note) - Constitutional Vitals: Period Temp Pulse Resp BP Sys/Sosa Pulse Ox Last 24 Hr 97.5 F-99.3 F 99-137 18-20 98-118/58-70 90-99 Exam: General appearance: no acute distress, severe morbidly obese. Pleasant and cooperative - Head Head exam: Present: normal inspection. Absent: abrasion, contusion - Eye Eye exam: Present: EOMI. Absent: periorbital swelling, scleral icterus Pupils: Present: PHILLY. Absent: dilated, fixed - ENT ENT exam: Present: normal external ear exam - Neck Neck exam: Present: normal inspection. Absent: tenderness - Respiratory Respiratory exam: Present: rales-improved (Bibasilarly). Absent: wheezes - Cardiovascular Cardiovascular exam: Present: irregular rhythm, tachycardia. Absent: bradycardia, JVD, systolic murmur - GI/Abdominal GI/Abdominal exam: Present: normal bowel sounds, other (Obese). Absent: ascites , distended, firm, tenderness - Extremities Exam Extremities exam: Present: normal capillary refill, edema (3 + bilateral lower extremities and pedal edema). Absent: full ROM, calf tenderness. Other: Ecchymotic bruising right knee - Back Exam Back exam: Present: normal inspection - Neurological Exam Neurological exam: Present: alert, oriented X3. Grossly intact. Resting tremor noted - Psychiatric Psychiatric exam: Present: normal affect, normal mood. Absent: agitated, anxious - Skin Skin exam: Present: warm, dry, intact. Absent: abrasion, cyanosis, diaphoretic , rash Result/EKG - Labs CBC & BMP: 12/11/16 05:05 12/14/16 04:57 Lab Results: I have reviewed the past 24 hour labs Labs: Laboratory Results - last 24 hr 12/13/16 12/13/16 12/14/16 16:17 20:17 04:57 Sodium 135 L Potassium 3.4 L Chloride 80 L Carbon Dioxide 51 H BUN 46 H Creatinine 1.80 H GFR Calculation 39 BUN/Creatinine Ratio 25.00 H Glucose 111 H POC Glucose 186 H 147 H Calculated Osmolality 282.1 Calcium 7.9 L 12/14/16 12/14/16 07:30 11:05 Sodium Potassium Chloride Carbon Dioxide BUN Creatinine GFR Calculation BUN/Creatinine Ratio Glucose POC Glucose 119 H 214 H Calculated Osmolality Calcium - EKG EKG results: interpreted by me, no acute changes EKG shows: atrial fibrillation Quality Measures - VTE Contraindication to Pharmacological VTE Prophylaxis: Already on Theraputic Agent , No Prophylaxis Needed Specialty Discharge - Follow Up or Referrals Olga Reynolds Attila, MD, personally performed the services described in this documentation, ascribed by Alexandra Wise RN in my presence, and it is both accurate and complete 707 .
[2016-12-14 18:07] LABS: ABG Base Excess 28.1 MMOL/L (-2.5-2.5); ABG HCO3 55.3 MMOL/L (20-26); ABG Oxygen Saturation 67.6 % (95-100); ABG PCO2 63.9 MM HG (35-48); ABG PH 7.555 (7.35-7.45); ABG TCO2 57.3 MMOL/L (23-27)
[2016-12-14 18:16] LABS: ABG PO2 29.3 MM HG (80-95)
[2016-12-14 18:31] LABS: ABG Base Excess 21.8 MMOL/L (-2.5-2.5); ABG HCO3 46.4 MMOL/L (20-26); ABG Oxygen Saturation 87.7 % (95-100); ABG PCO2 58.8 MM HG (35-48); ABG PH 7.531 (7.35-7.45); ABG PO2 52.6 MM HG (80-95); ABG TCO2 42.7 MMOL/L (23-27); Allen Test Positive
--- NOTE | 2016-12-14 18:44 | XRay Report ---
Portable chest Exam date: 12/14/2016 1:20 PM Indication: Shortness of breath, cough Comparison: December 08, 2016 Findings: Cardiomediastinal contours are stable with underlying cardiomegaly. Improved edema pattern and aeration of the lung bases with small residual left pleural effusion. No acute osseous abnormalities. Visualized upper abdomen demonstrates no acute pathology. Impression: Small left pleural effusion PROCEDURE INTERPRETED AT [facility] DEPARTMENT OF RADIOLOGY Final Report Signed by: Renetta Lanier MD
[2016-12-14] MEDS ORDERED: DIGOXIN 0.125 MG TABLET PO ONE (21:00)
[2016-12-14] MEDS: GABAPENTIN 300 MG CAPSULE PO SCH (21:52)
[2016-12-14] MEDS: ATORVASTATIN 40 MG TABLET PO SCH (21:59)
[2016-12-15 08:23] LABS: Basophils % 0.4 % (0.0-0.8); Eosinophils % 0.4 % (0.00-10.9); Hematocrit 37.5 VOL% (35.7-47.0); Hemoglobin 12.6 GM/DL (12.0-16.0); Immature Granulocytes % 0.5 %; Immature Granulocytes Absolute 0.05 #; Lymphocytes # 1.2 10*3/uL (1.4-4.0); Lymphocytes % 12.2 % (21.3-54.2); Mean Corpuscular HGB Conc 33.6 GM/DL (32-36); Mean Corpuscular Hemoglobin 30 PG (27-34); Mean Corpuscular Volume 89.7 FL (87-102); Mean Platelet Volume 10.8 FL (9.6-12.0); Monocytes # 1.1 10*3/uL (0.11-0.8); Monocytes % 11.4 % (1.7-12.7); Neutrophils # 7.1 10*3/uL (1.4-7.4); Neutrophils % 75.1 % (38.7-73.9); Platelet Count 325 T/CUMM (130-400); Red Blood Count 4.18 MC/CUMM (3.8-5.5); Red Cell Distribution Width 13.8 % (9.3-17.3); White Blood Count 9.4 T/CUMM (4-12)
[2016-12-15] MEDS: FUROSEMIDE 40 MG/4 ML VIAL IV SCH ×2 (09:14→16:02)
[2016-12-15] MEDS: POTASSIUM CHLORIDE 20 MEQ TABLET PO SCH (09:14)
[2016-12-15] MEDS: DOCUSATE SODIUM 100 MG CAPSULE PO SCH ×2 (09:15→22:20)
[2016-12-15] MEDS: FENOFIBRATE 145 MG TABLET PO SCH (09:15)
[2016-12-15] MEDS: ASCORBIC ACID 500 MG TABLET PO SCH (09:15)
[2016-12-15] MEDS: CLOPIDOGREL 75 MG TABLET PO SCH (09:15)
[2016-12-15] MEDS: CARVEDILOL 6.25 MG TABLET PO SCH ×2 (09:15→22:20)
[2016-12-15] MEDS: ASPIRIN EC 81 MG TABLET PO SCH (09:15)
[2016-12-15] MEDS: sitaGLIPtin 25 MG TABLET PO SCH (09:15)
[2016-12-15] MEDS: AMIODARONE 200 MG TABLET PO SCH ×2 (09:15→22:19)
[2016-12-15] MEDS: metOLazone 5 MG TABLET PO SCH (09:15)
[2016-12-15] MEDS: PANTOPRAZOLE 40 MG TABLET PO SCH (09:16)
[2016-12-15] MEDS: APIXABAN 5 MG TABLET PO SCH ×2 (09:16→22:19)
[2016-12-15] MEDS: INSULIN LISPRO 100 UNIT/ML SUBCUT SCH ×4 (09:40→22:27)
[2016-12-15 09:53] LABS: Blood Urea Nitrogen 59 MG/DL (7-18); Glucose 96 MG/DL (74-106); Magnesium 2.4 MG/DL (1.8-2.4); Osmolality,Calculated 284.2 MOS/KG (273-304); Potassium 3.7 MMOL/L (3.5-5.1); Sodium 134 MMOL/L (136-145)
[2016-12-15] MEDS: INSULIN GLARGINE 100 UNIT/ML SUBCUT SCH (10:14)
[2016-12-15] MEDS: DIGOXIN 0.125 MG TABLET PO SCH (12:35)
--- NOTE | 2016-12-15 15:31 | Sleep Medicine Consult ---
Assessment and Plan (1) Treatment-emergent central sleep apnea Status: Acute Assessment and plan: This patient does have a history of mild obstructive sleep apnea but unfortunately both CPAP and BiPAP were unsuccessful and benefiting her. Her best results were seen with nocturnal O2 therapy alone. Her overall AHI was 1.1 on supplemental oxygen. I would recommend continued nocturnal O2 therapy alone for treatment of her obstructive sleep apnea and treatment emergent central sleep apnea given her refractoriness to CPAP and BiPAP. She is not a candidate for adaptive servo ventilation therapy. Her prognosis is poor given her cardiomyopathy and declining condition. Thank you for this consult. Current Visit: Yes History of Present Illness Chief complaint: Sleep apnea History of present illness: Ms. Light is a 61 year old female known to me from previous sleep evaluation. She had a diagnostic sleep study with findings of obstructive sleep apnea of mild severity with an AHI of 13. She underwent CPAP titration in October and developed treatment emergent central sleep apnea. She was started on 4 cm of CPAP and went to 18 cm of CPAP without control of her sleep apnea. Over 50% of her events were central in nature. She was then tried on BiPAP therapy and had a backup rate and never had good control with BiPAP or BiPAP ST. She did have significant O2 desaturation with her events and spent over 47% of her sleep with O2 sats of less than 90%. Because of her underlying congestive cardiomyopathy, she is not a candidate for adaptive servo ventilation therapy. It was noted that on her original study, that she did do well with just supplemental oxygen alone at 1-2 L/min. She was actually worse on CPAP therapy. With supplemental oxygen, her overall AHI was 1.1. She is now back in the hospital for exacerbation of CHF and A. fib with RVR. Home Medications Medication Instructions Recorded Confirmed Type Albuterol Inhaler [Proventil 2 puff INH DAILY PRN 10/06/16 12/08/16 History Inhaler] Fenofibrate [Tricor] 145 mg PO DAILY 10/06/16 12/08/16 History Gabapentin 600 mg PO BEDTIME 10/06/16 12/08/16 History Insulin Detemir [Levemir FlexPen] 45 unit SUBCUT DAILY 10/06/16 12/08/16 History Ipratropium/Albuterol Sulfate 3 ml IH Q4H PRN 10/06/16 12/08/16 History [Iprat-Albut 0.5-3(2.5) mg/3 ml] Omeprazole [Prilosec] 20 mg PO DAILY 10/06/16 12/08/16 History Saxagliptin HCl [Onglyza] 5 mg PO DAILY 10/06/16 12/08/16 History Amiodarone Tab [Cordarone Tab] 200 mg PO BID #60 tablet 10/12/16 12/08/16 Rx Apixaban [Eliquis] 5 mg PO BID #60 tablet 10/12/16 12/08/16 Rx Ascorbic Acid Tab [Vitamin C Tab] 1,000 mg PO DAILY #30 tablet 10/12/16 Rx Aspirin EC Tab 81 mg PO DAILY #30 tablet 10/12/16 12/08/16 Rx Clopidogrel [Plavix] 75 mg PO DAILY #30 tablet 10/12/16 12/08/16 Rx Furosemide 80 mg PO BID 10/28/16 12/08/16 History Ascorbic Acid Tab [Vitamin C Tab] 1,000 mg PO DAILY 12/08/16 12/08/16 History Omeprazole 20 mg PO DAILY 12/08/16 12/08/16 History Potassium Chloride Cap/Tab [K Dur] 20 meq PO BID 12/08/16 12/08/16 History Simvastatin 40 mg PO BEDTIME 12/08/16 12/08/16 History metOLazone [Metolazone] 5 mg PO DAILY 12/08/16 12/08/16 History Allergies Allergy/AdvReac Type Severity Reaction Status Date / Time No Known Allergies Allergy Verified 12/08/16 12:49 Review of systems: Patient is compliant with oxygen therapy at home. Exam (Pulmonay) H&P - Constitutional Vitals: Period Temp Pulse Resp BP Sys/Sosa Pulse Ox Last 24 Hr 97.2 F-100.8 F 18-134 18-20 87-145/55-103 91-100 Exam: She is chronically ill-appearing. She is alert and responsive and answers questions. Pupils equal round reactive to light and accommodation. Extraocular movements intact. Oropharynx with a class IV Mallampati exam. Neck is supple without adenopathy or thyromegaly. No supraclavicular adenopathy is noted. Chest with symmetrical breath sounds without focal wheeze , rhonchi, or rales. Cardiac exam reveals a regular rhythm without murmur or gallop. Abdomen obese nontender without palpable hepatosplenomegaly or mass. Extremities with trace edema. Neurologically, she is grossly intact. She moves all extremities with good strength. Medical,Surgical,& Family Hx - Medical History Cardio: History of: CHF, Hypertension, [place] Neurology: No history of: Seizures Endocrine: History of: Diabetes Mellitus (NIDDM), Dyslipidemia Gastrointestinal: History of: GERD - Family History Family History: Reports;: Family Diabetes, Family Hypertension, Family Stroke - Social History Smoking Status: Former smoker Frequency of Alcohol Use: None Type of Drug Use: None Results - Labs CBC & BMP: 12/15/16 07:45 12/15/16 07:45 Lab Results: I have reviewed the past 24 hour labs Quality Measures - VTE Contraindication to Pharmacological VTE Prophylaxis: Already on Theraputic Agent , No Prophylaxis Needed Specialty Discharge - Follow Up or Referrals
--- NOTE | 2016-12-15 17:01 | Pulmonology Consult Note ---
Assessment and Plan (1) Congestive heart failure Status: Chronic Assessment and plan: She has severe ischemic cardiomyopathy which is acute on chronic systolic heart failure. Ejection fraction 15-20%. She has been diuresed 5 kg. Renal function is gotten slightly worse. We need to watch this closely. Current Visit: No (2) Diabetes Status: Chronic Assessment and plan: Fair control of diabetes. Current Visit: No Qualifiers: Diabetes mellitus type: type 2 (3) Obesity Status: Chronic Assessment and plan: Of course needs long-term weight loss. Current Visit: No Qualifiers: Body mass index: BMI 40.0-44.9 (4) Ischemic cardiomyopathy Status: Chronic Assessment and plan: Severe ischemic heart disease. Ejection fraction 15-20% and had stents placed about 2 months ago. She is requiring anticoagulants for this which further prevents orthopedic from replacing her knee. She would be a high risk for that. Current Visit: No (5) Status post coronary artery stent placement Status: Acute Assessment and plan: As mentioned she had 2 stents placed in September of this year. Current Visit: No (6) Chronic kidney disease, stage III (moderate) Status: Chronic Assessment and plan: Creatinine is 2.2. It has fallen since admission but risen slightly over the last couple of days. We need to hold back on diuresing a little. I have stopped her Zaroxolyn. I am going to use Diamox for her metabolic alkalosis. Current Visit: Yes (7) Pain of right knee after injury Status: Acute Assessment and plan: Severe tricompartmental arthritis right knee. Would be candidate for surgery if not for the high risk of her medical problems. Current Visit: Yes (8) Treatment-emergent central sleep apnea Status: Acute Assessment and plan: This per Dr. Flores's note. She has obstructive sleep apnea but in treating that it brings out her central sleep apnea. She does best with just 1 L of nasal oxygen and no CPAP, no BiPAP. Current Visit: Yes History of Present Illness Chief complaint: Shortness of breath, somnolence History of present illness: Ms. Light is a 61 year old female who has obstructive sleep apnea and central sleep apnea. Probably also obesity hypoventilation syndrome. She has a severe ischemic cardiomyopathy with ejection fraction 15-20%. She came in with congestive heart failure. She has been diuresed 5 kg. Her creatinine has risen slightly to the range of 2.2. She has had studies done for obstructive sleep apnea. She has that but in treating it with CPAP and then BiPAP she got worse instead of better. She has central sleep apnea which was brought out by the CPAP and BiPAP therapy. She is on 1 L of oxygen now during the night. Her ABGs show CO2 retention and metabolic alkalosis. So this may be related to the vigorous diuresis but I think we should bump her with Diamox. She has a right knee effusion and severe arthritis of her right knee. We need to be careful not to give her too much pain medication and make her sleep apnea worse. She says that she does not take much pain medicine. Dr. Mohan has added Ultram. I am going to stop the Cosby. She also does not need a sleeping pill. Home Medications Medication Instructions Recorded Confirmed Type Albuterol Inhaler [Proventil 2 puff INH DAILY PRN 10/06/16 12/08/16 History Inhaler] Fenofibrate [Tricor] 145 mg PO DAILY 10/06/16 12/08/16 History Gabapentin 600 mg PO BEDTIME 10/06/16 12/08/16 History Insulin Detemir [Levemir FlexPen] 45 unit SUBCUT DAILY 10/06/16 12/08/16 History Ipratropium/Albuterol Sulfate 3 ml IH Q4H PRN 10/06/16 12/08/16 History [Iprat-Albut 0.5-3(2.5) mg/3 ml] Omeprazole [Prilosec] 20 mg PO DAILY 10/06/16 12/08/16 History Saxagliptin HCl [Onglyza] 5 mg PO DAILY 10/06/16 12/08/16 History Amiodarone Tab [Cordarone Tab] 200 mg PO BID #60 tablet 10/12/16 12/08/16 Rx Apixaban [Eliquis] 5 mg PO BID #60 tablet 10/12/16 12/08/16 Rx Ascorbic Acid Tab [Vitamin C Tab] 1,000 mg PO DAILY #30 tablet 10/12/16 Rx Aspirin EC Tab 81 mg PO DAILY #30 tablet 10/12/16 12/08/16 Rx Clopidogrel [Plavix] 75 mg PO DAILY #30 tablet 10/12/16 12/08/16 Rx Furosemide 80 mg PO BID 10/28/16 12/08/16 History Ascorbic Acid Tab [Vitamin C Tab] 1,000 mg PO DAILY 12/08/16 12/08/16 History Omeprazole 20 mg PO DAILY 12/08/16 12/08/16 History Potassium Chloride Cap/Tab [K Dur] 20 meq PO BID 12/08/16 12/08/16 History Simvastatin 40 mg PO BEDTIME 12/08/16 12/08/16 History metOLazone [Metolazone] 5 mg PO DAILY 12/08/16 12/08/16 History Allergies Allergy/AdvReac Type Severity Reaction Status Date / Time No Known Allergies Allergy Verified 12/08/16 12:49 12 point system: reviewed and no additional remarkable complaints except as stated - Constitutional Constitutional: Present: daytime sleepiness, fatigue, lethargy, weight gain - Cardiovascular Cardiovascular: Present: dyspnea, dyspnea on exertion, edema, orthopnea, palpitations - Respiratory Respiratory: Present: dyspnea, dyspnea on exertion - Musculoskeletal Musculoskeletal: Present: arthralgias (Right knee pain and swelling) - Endocrine Endocrine: Present: other (She is diabetic) Exam (Pulmonay) H&P - Constitutional Vitals: Period Temp Pulse Resp BP Sys/Sosa Pulse Ox Last 24 Hr 97.2 F-100.8 F 18-134 18-20 87-145/55-103 91-96 Exam: Vital signs are normal, except blood pressure 90/60 and pulse around 110. Weight is 130 kg, down 5 kg from admission. O2 sat 93% on 1 L. Pupils react to light. Throat is clear. Neck supple no bruits. Chest is clear equal breath sounds. Heart normal rate and rhythm no murmurs. Abdomen grand obese unable to palpate abdominal organs. Extremities she has 1+ peripheral edema. Right knee is swollen and somewhat tender Medical,Surgical,& Family Hx - Medical History Cardio: History of: CHF, Hypertension, [place] Neurology: No history of: Seizures Endocrine: History of: Diabetes Mellitus (NIDDM), Dyslipidemia Gastrointestinal: History of: GERD - Family History Family History: Reports;: Family Diabetes, Family Hypertension, Family Stroke - Social History Smoking Status: Former smoker Frequency of Alcohol Use: None Type of Drug Use: None Results - Labs CBC & BMP: 12/15/16 07:45 12/15/16 07:45 Lab Results: I have reviewed the past 24 hour labs - Diagnostic Findings Procedure: Chest x-ray: image reviewed by me (Cardiomegaly. I do not see any pleural effusion. There were probable small effusions on admission a week ago.) Quality Measures - VTE Contraindication to Pharmacological VTE Prophylaxis: Already on Theraputic Agent , No Prophylaxis Needed Specialty Discharge - Follow Up or Referrals
--- NOTE | 2016-12-15 17:48 | Cardiology Progress Note ---
Frandy Reynolds Vanessa, RN, am scribing for, and in the presence of, Lionel Espinoza MD 17 :47. Assessment and Plan - Time spent with patient Time spent with patient: Greater than 30 minutes (1) Acute on chronic combined systolic (congestive) and diastolic (congestive) heart failure Status: Chronic Assessment and plan: 61 year old NAF, severe morbid obesity, sleep disorder, HTN, HLD, DM, CKD III, persistent AF. Recent NSTEMI with stenting x 2 to LAD and diagonal and iscemic cardiomyopathy, EF 10-20%. Now admitted with acute on chronic combined CHF and ROGERIO. Has shown improvement with IV diuresis and IV Dobutrex (now stopped) EKG: AF w/ ventricular response 100-120. PVCs, NSVT -CHF- continue IV diuresis & metolazone. ICMO, LVEF 10-20%. Less ventricular ectopy today, since the dobutamine was stopped. Unfortunately, borderline blood pressure low, creat increasing. -AF- ventricular rate better controlled. Cont digoxin, monitor renal function. Continue Eliquis, Plavix. Stop aspirin. Continue Coreg, as tolerated. If the A. fib remains persistent, we may stop the amiodarone. -ZOLTAN/OHS. This is quite severe, she failed ZOLTAN interventions in the past. Avoid high-dose pain medications and oxygen appreciate pulmonary and sleep input -Knee pain. Severe arthritis. Cardiac risk for TKR would be prohibitive at this time. Appreciate orthopedic input. -ROGERIO- creatinine increasing. She appears to be well perfused -Hypokalemia- resolved today. Continue KDur 40 meq PO daily. Follow up BMP. -CAD- EKG remains stable. Continue statin, Plavix, low dose ASA. No angina -Prognosis remains poor, severe ICM, CHF NYHA IV, with significant comorbidities. We will can consider hospice, if not improving. 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 Current Visit: Yes (2) Atrial fibrillation Status: Chronic Assessment and plan: SEE PLAN OF CARE LISTED ABOVE. Current Visit: Yes (3) Chronic kidney disease, stage III (moderate) Status: Chronic Assessment and plan: SEE PLAN OF CARE LISTED ABOVE. Current Visit: Yes (4) Ischemic cardiomyopathy Status: Chronic Assessment and plan: SEE PLAN OF CARE LISTED ABOVE. Current Visit: No (5) Diabetes Status: Chronic Assessment and plan: SEE PLAN OF CARE LISTED ABOVE. Current Visit: No Qualifiers: Diabetes mellitus type: type 2 (6) Essential hypertension Status: Chronic Assessment and plan: SEE PLAN OF CARE LISTED ABOVE. Current Visit: No (7) Former smoker Status: Chronic Assessment and plan: SEE PLAN OF CARE LISTED ABOVE. Current Visit: No (8) GERD (gastroesophageal reflux disease) Status: Chronic Assessment and plan: SEE PLAN OF CARE LISTED ABOVE. Current Visit: No (9) Hyperlipidemia Status: Chronic Assessment and plan: SEE PLAN OF CARE LISTED ABOVE. Current Visit: No (10) Obesity Status: Chronic Assessment and plan: SEE PLAN OF CARE LISTED ABOVE. Current Visit: No Qualifiers: Body mass index: BMI 40.0-44.9 (11) CAD (coronary artery disease) Status: Chronic Assessment and plan: SEE PLAN OF CARE LISTED ABOVE. Current Visit: Yes (12) Sleep disorder Status: Acute Assessment and plan: SEE PLAN OF CARE LISTED ABOVE. Current Visit: Yes (13) Hypokalemia Status: Acute Assessment and plan: SEE PLAN OF CARE LISTED ABOVE. Current Visit: Yes Cardiology - PN: Subj Interval history: Job Coach/Job Developer: Dr. Soria SUMMARY: 61-year-old NAF, PMHx hypertension and diabetes (poorly controlled), hyperlipidemia, CRF, suspected ZOLTAN, recent NSTEMI and has ischemic cardiomyopathy with EF 10-20%. Status post PCI with stenting of LAD and diagonal branch in September 2016. New onset atrial fibrillation in May 2016, treated medically. Previous cardioversion in October and has now had recurrence of atrial fib. Patient was admitted to [facility] on 12/08 after unsuccessful elective cardioversion [address] Soria. Lab work on day of admission revealed worsening creatinine and worsening CHF. She was admitted for further treatment of acute on chronic systolic and diastolic CHF, EF 10-20% , and progressive chronic renal failure with ROGERIO. Patient initially was treated with IV dobutamine, and has somewhat improved cardiac output with fair diuresis. December: Patient is resting comfortably in bed this morning. Family member present. Patient is in no acute respiratory distress. Denies dyspnea, chest discomfort, palpitations, other cardiac complaint. Only complaint today is continued right knee pain. No supplemental oxygen in use during physical exam. Yesterday evening had some hypotension with hypoxia. STAT ABGs showed severe metabolic acidosis with pH 7.53, PCO2 58. Supplemental O2 stopped. Sleep medicine and pulmonary consult pending today. Reviewing old records, patient was evaluated by Dr. Quevedo in September and was to be set up for polysomnography at [facility] sleep center. Patient does report she was told that she had sleep apnea at [facility], but says she was instructed to use nasal cannula at bedtime, no CPAP. Borderline hypotension at times but overall SBP 110-120 mmHg range. Telemetry: atrial fib with vent response 90s, intermittent NSVT. Labs reviewed this morning. Creatinine trending upward again, 2.2, BUN 59 today. Electrolytes stable today.Continue to monitor and treat patient for acute on chronic combined CHF, acute on chronic renal failure, and atrial fib. These are currently overall stable. ROS: -denies dyspnea, cough -denies chest pain or discomfort, palpitations -denies abd pain, N/V Exam (Progress Note) - Constitutional Vitals: Period Temp Pulse Resp BP Sys/Sosa Pulse Ox Last 24 Hr 97.5 F-100.8 F 18-134 18-20 87-145/55-103 90-100 Exam: General appearance: no acute distress, severe morbidly obese. Pleasant and cooperative - Head Head exam: Present: normal inspection. Absent: abrasion, contusion - Eye Eye exam: Present: EOMI. Absent: periorbital swelling, scleral icterus Pupils: Present: PHILLY. Absent: dilated, fixed - ENT ENT exam: Present: normal external ear exam - Neck Neck exam: Present: normal inspection. Absent: tenderness - Respiratory Respiratory exam: Present: rales-improved (Bibasilarly). Absent: wheezes - Cardiovascular Cardiovascular exam: Present: irregular rhythm, tachycardia. Absent: bradycardia, JVD, systolic murmur - GI/Abdominal GI/Abdominal exam: Present: normal bowel sounds, other (Obese). Absent: ascites , distended, firm, tenderness - Extremities Exam Extremities exam: Present: normal capillary refill, edema (3 + bilateral lower extremities and pedal edema). Absent: full ROM, calf tenderness. Other: Ecchymotic bruising right knee - Back Exam Back exam: Present: normal inspection - Neurological Exam Neurological exam: Present: alert, oriented X3. Grossly intact. Resting tremor noted - Psychiatric Psychiatric exam: Present: normal affect, normal mood. Absent: agitated, anxious - Skin Skin exam: Present: warm, dry, intact. Absent: abrasion, cyanosis, diaphoretic , rash Result/EKG - Labs CBC & BMP: 12/15/16 07:45 12/15/16 07:45 Lab Results: I have reviewed the past 24 hour labs Labs: Laboratory Results - last 24 hr 12/14/16 12/14/16 12/14/16 11:05 16:56 17:55 WBC RBC Hgb Hct MCV MCH MCHC RDW Plt Count MPV Neut % (Auto) Lymph % (Auto) Pinal % (Auto) Eos % (Auto) Baso % (Auto) Neut # (Auto) Lymph # (Auto) Pinal # (Auto) Eos # (Auto) Baso # (Auto) Immature Gran % Nucleated RBC % Immature Gran # Nucleated RBCs # Immature Plt Fraction ABG pH 7.555 H ABG pCO2 63.9 H ABG pO2 29.3 L* ABG HCO3 55.3 H ABG Total CO2 57.3 H ABG O2 Saturation 67.6 L ABG Base Excess 28.1 H FiO2 Sodium Potassium Chloride Carbon Dioxide BUN Creatinine GFR Calculation BUN/Creatinine Ratio Glucose POC Glucose 214 H 125 H Calculated Osmolality Calcium Magnesium 12/14/16 12/14/16 12/15/16 18:25 19:29 07:45 WBC 9.4 RBC 4.18 Hgb 12.6 Hct 37.5 MCV 89.7 MCH 30 MCHC 33.6 RDW 13.8 Plt Count 325 MPV 10.8 Neut % (Auto) 75.1 H Lymph % (Auto) 12.2 L P[place] % (Auto) 11.4 Eos % (Auto) 0.4 Baso % (Auto) 0.4 Neut # (Auto) 7.1 Lymph # (Auto) 1.2 L Pinal # (Auto) 1.1 H Eos # (Auto) 0.0 Baso # (Auto) 0.0 Immature Gran % 0.5 Nucleated RBC % 0.0 Immature Gran # 0.05 Nucleated RBCs # 0.00 Immature Plt Fraction 0.0 ABG pH 7.531 H ABG pCO2 58.8 H ABG pO2 52.6 L ABG HCO3 46.4 H ABG Total CO2 42.7 H ABG O2 Saturation 87.7 L ABG Base Excess 21.8 H FiO2 24.00 Sodium Potassium Chloride Carbon Dioxide BUN Creatinine GFR Calculation BUN/Creatinine Ratio Glucose POC Glucose 148 H Calculated Osmolality Calcium Magnesium 12/15/16 12/15/16 07:45 08:15 WBC RBC Hgb Hct MCV MCH MCHC RDW Plt Count MPV Neut % (Auto) Lymph % (Auto) Pinal % (Auto) Eos % (Auto) Baso % (Auto) Neut # (Auto) Lymph # (Auto) Pinal # (Auto) Eos # (Auto) Baso # (Auto) Immature Gran % Nucleated RBC % Immature Gran # Nucleated RBCs # Immature Plt Fraction ABG pH ABG pCO2 ABG pO2 ABG HCO3 ABG Total CO2 ABG O2 Saturation ABG Base Excess FiO2 Sodium 134 L Potassium 3.7 Chloride 80 L Carbon Dioxide 48 H BUN 59 H Creatinine 2.20 H GFR Calculation 30 BUN/Creatinine Ratio 26.00 H Glucose 96 POC Glucose 112 H Calculated Osmolality 284.2 Calcium 8.0 L Magnesium 2.4 - EKG EKG results: interpreted by me EKG shows: atrial fibrillation Quality Measures - VTE Contraindication to Pharmacological VTE Prophylaxis: Already on Theraputic Agent , No Prophylaxis Needed Specialty Discharge - Follow Up or Referrals Olga Reynolds Attila, MD, personally performed the services described in this documentation, ascribed by Alexandra Wise RN in my presence, and it is both accurate and complete 748 .
[2016-12-15] MEDS: ATORVASTATIN 40 MG TABLET PO SCH (22:20)
[2016-12-15] MEDS: GABAPENTIN 300 MG CAPSULE PO SCH (22:20)
--- NOTE | 2016-12-15 22:33 | Nephrology Progress Note ---
Nephrology - PN: Subj Interval history: No shortness of breath at rest. No chest pain Exam (PN)-Nephrology - Vital Signs Vital signs: Period Temp Pulse Resp BP Sys/Sosa Pulse Ox Last 24 Hr 97.2 F-98.5 F 18-134 18-20 90-145/55-103 91-96 Exam: Gen.: Alert and oriented x3. ENT: Pupils equal round reactive to light. EOMs intact. Mucous membranes moist. Neck: Supple. No JVD or bruit. Cardiovascular: Regular rate and rhythm. No murmur rub or gallop Lungs: Clear Abdomen: Soft. Nontender. Positive bowel sounds. No organomegaly Extremities: 1-2+ edema - Lab 12/15/16 07:45 12/15/16 07:45 Most recent lab results ABG pH 7.531 (7.35-7.45) H 12/14/16 18:25 ABG pCO2 58.8 MM HG (35-48) H 12/14/16 18:25 ABG pO2 52.6 MM HG (80-95) L 12/14/16 18:25 ABG HCO3 46.4 MMOL/L (20-26) H 12/14/16 18:25 ABG O2 Saturation 87.7 % (95-100) L 12/14/16 18:25 Calcium 8.0 MG/DL (8.5-10.1) L 12/15/16 07:45 Magnesium 2.4 MG/DL (1.8-2.4) 12/15/16 07:45 Assessment and Plan (1) Chronic kidney disease, stage III (moderate) Status: Chronic Assessment and plan: 61-year-old woman with: * Ischemic cardiomyopathy. Ejection fraction 15-20% * Atrial fibrillation. Status post unsuccessful cardioversion * CRF 3. * ARF. Creatinine higher. She is developing more prerenal azotemia. Lasix changed to p.o. * Diabetes mellitus * Obesity Current Visit: Yes (2) ARF (acute renal failure) Status: Acute Current Visit: Yes (3) Ischemic cardiomyopathy Status: Chronic Current Visit: No (4) Status post coronary artery stent placement Status: Acute Current Visit: No (5) Diabetes Status: Chronic Current Visit: No Qualifiers: Diabetes mellitus type: type 2 (6) Obesity Status: Chronic Current Visit: No Qualifiers: Body mass index: BMI 40.0-44.9 (7) Atrial fibrillation with RVR Status: Resolved Current Visit: No Specialty Discharge - Follow Up or Referrals
[2016-12-16 05:14] LABS: Basophils % 0.2 % (0.0-0.8); Eosinophils # 0.1 10*3/uL (0.0-0.87); Eosinophils % 1.2 % (0.00-10.9); Hematocrit 36.9 VOL% (35.7-47.0); Hemoglobin 12.2 GM/DL (12.0-16.0); Immature Granulocytes % 0.4 %; Lymphocytes % 10.2 % (21.3-54.2); Mean Corpuscular HGB Conc 33.1 GM/DL (32-36); Mean Corpuscular Hemoglobin 29 PG (27-34); Mean Corpuscular Volume 88.5 FL (87-102); Monocytes % 9.5 % (1.7-12.7); Neutrophils # 7.8 10*3/uL (1.4-7.4); Neutrophils % 78.5 % (38.7-73.9); Platelet Count 323 T/CUMM (130-400); Red Blood Count 4.17 MC/CUMM (3.8-5.5); Red Cell Distribution Width 13.6 % (9.3-17.3)
[2016-12-16 05:15] LABS: Immature Granulocytes Absolute 0.04 #
[2016-12-16 05:49] LABS: Blood Urea Nitrogen 66 MG/DL (7-18); Glucose 80 MG/DL (74-106); Magnesium 2.3 MG/DL (1.8-2.4); Osmolality,Calculated 285.2 MOS/KG (273-304); Potassium 3.9 MMOL/L (3.5-5.1); Sodium 134 MMOL/L (136-145)
--- NOTE | 2016-12-16 07:05 | Pulmonology Progress Note ---
Pulmonary - PN: Subj Interval history: This 61-year-old female has severe ischemic cardiomyopathy with ejection fraction 15-20%. She has chronic respiratory failure with an elevated PCO2 as well as a metabolic alkalosis. Added Diamox yesterday. Watching renal function closely. Creatinine is 2.3 today. BNP still elevated at 779 although this may be somewhat falsely elevated due to her renal insufficiency. She slept well and feels pretty good this morning. Exam (Progress Note) - Constitutional Vitals: Period Temp Pulse Resp BP Sys/Sosa Pulse Ox Last 24 Hr 97.2 F-99 F 81-126 18-20 90-118/51-65 91-99 Exam: Patient's alert and responsive wearing 1 L nasal oxygen. Vital signs normal. Pupils react to light. Throat is clear. Neck supple no bruits. Chest shows a few basilar rhonchi. Heart normal rate rhythm no murmurs. Abdomen soft nontender no masses. Extremities no clubbing or cyanosis. She has a trace of peripheral edema. Right knee is swollen. Results - Labs CBC & BMP: 12/16/16 04:38 12/16/16 04:38 Lab Results: I have reviewed the past 24 hour labs Assessment and Plan (1) Congestive heart failure Status: Chronic Assessment and plan: She has severe ischemic cardiomyopathy which is acute on chronic systolic heart failure. Ejection fraction 15-20%. She has been diuresed 5 kg. Renal function is gotten slightly worse. We need to watch this closely. 12/16/2016 continuing with gentle diuresis. Watch renal function. Current Visit: No (2) Diabetes Status: Chronic Assessment and plan: Fair control of diabetes. 12/16/16 glucoses fairly well controlled. Current Visit: No Qualifiers: Diabetes mellitus type: type 2 (3) Obesity Status: Chronic Assessment and plan: Of course needs long-term weight loss. Current Visit: No Qualifiers: Body mass index: BMI 40.0-44.9 (4) Ischemic cardiomyopathy Status: Chronic Assessment and plan: Severe ischemic heart disease. Ejection fraction 15-20% and had stents placed about 2 months ago. She is requiring anticoagulants for this which further prevents orthopedic from replacing her knee. She would be a high risk for that. 12/16/2016 continuing with gentle diuresis. Current Visit: No (5) Status post coronary artery stent placement Status: Acute Assessment and plan: As mentioned she had 2 stents placed in September of this year. Current Visit: No (6) Chronic kidney disease, stage III (moderate) Status: Chronic Assessment and plan: Creatinine is 2.2. It has fallen since admission but risen slightly over the last couple of days. We need to hold back on diuresing a little. I have stopped her Zaroxolyn. I am going to use Diamox for her metabolic alkalosis. 12/16/2016 creatinine 2.3 Current Visit: Yes (7) Pain of right knee after injury Status: Acute Assessment and plan: Severe tricompartmental arthritis right knee. Would be candidate for surgery if not for the high risk of her medical problems. Current Visit: Yes (8) Treatment-emergent central sleep apnea Status: Acute Assessment and plan: This per Dr. Flores's note. She has obstructive sleep apnea but in treating that it brings out her central sleep apnea. She does best with just 1 L of nasal oxygen and no CPAP, no BiPAP. 12/16/2016 continuing oxygen at 1 L at night. Current Visit: Yes Specialty Discharge - Follow Up or Referrals
[2016-12-16] MEDS: INSULIN LISPRO 100 UNIT/ML SUBCUT SCH ×4 (08:58→21:54)
[2016-12-16] MEDS: CLOPIDOGREL 75 MG TABLET PO SCH (08:59)
[2016-12-16] MEDS: CARVEDILOL 6.25 MG TABLET PO SCH ×2 (08:59→21:53)
[2016-12-16] MEDS: ASCORBIC ACID 500 MG TABLET PO SCH (08:59)
[2016-12-16] MEDS: PANTOPRAZOLE 40 MG TABLET PO SCH (08:59)
[2016-12-16] MEDS: APIXABAN 5 MG TABLET PO SCH ×2 (08:59→21:52)
[2016-12-16] MEDS: FUROSEMIDE 80 MG TABLET PO SCH ×2 (08:59→17:38)
[2016-12-16] MEDS: POTASSIUM CHLORIDE 20 MEQ TABLET PO SCH (08:59)
[2016-12-16] MEDS: DOCUSATE SODIUM 100 MG CAPSULE PO SCH ×2 (08:59→21:52)
[2016-12-16] MEDS: sitaGLIPtin 25 MG TABLET PO SCH (08:59)
[2016-12-16] MEDS: FENOFIBRATE 145 MG TABLET PO SCH (09:00)
[2016-12-16] MEDS: AMIODARONE 200 MG TABLET PO SCH (09:00)
[2016-12-16] MEDS: INSULIN GLARGINE 100 UNIT/ML SUBCUT SCH (09:00)
[2016-12-16] MEDS ORDERED: DEXTROSE 50% 25 GM/50 ML VIAL IV PRN (11:00)
[2016-12-16] MEDS: DIGOXIN 0.125 MG TABLET PO SCH (13:53)
--- NOTE | 2016-12-16 15:18 | Cardiology Progress Note ---
I, Alexandra Wise RN, am scribing for, and in the presence of, Lionel Espinoza MD 15 :12. Assessment and Plan - Time spent with patient Time spent with patient: Greater than 30 minutes (1) Acute on chronic combined systolic (congestive) and diastolic (congestive) heart failure Status: Chronic Assessment and plan: 61 year old NAF, severe morbid obesity, sleep disorder, HTN, HLD, DM, CKD III, persistent AF. Recent NSTEMI with stenting x 2 to LAD and diagonal and iscemic cardiomyopathy, EF 10-20%. Now admitted with acute on chronic combined CHF and ROGERIO. Has shown improvement with IV diuresis and IV Dobutrex (now stopped) EKG: AF w/ ventricular response 90s. PVCs, NSVT -CHF-p.o. diuresis, per renal. Diuresed well. Severe ICM, borderline BP, required dobutamine support earlier, which cause more ectopy and RVR with A. fib -Continue low-dose digoxin. Renal function slightly worsened. If continues to deteriorate, we may have to discontinue this -A. fib, persistent. I doubt that we can achieve lasting rhythm control, given her comorbidities. Continue rate control, anticoagulate. We may stop amiodarone, if rhythm control is not feasible and rate control is acceptable with beta-angel only, however, blood pressure was in issues so far -ZOLTAN/OHS-quite severe with central sleep apnea. Intolerant of CPAP/BiPAP. Avoid high dose pain meds and oxygenation. Appreciate assistance from pulmonary and sleep medicine. -CAD- no angina. Continue statin, Plavix -Continue PT. -Poor prognosis with severe ICM, CHF NYHA IV, significant comorbidities. Patient not a candidate for CLIENT MANAGER. -Discussed hospice option. Pt interested, will get consult Current Visit: Yes (2) Atrial fibrillation Status: Chronic Assessment and plan: SEE PLAN OF CARE LISTED ABOVE. Current Visit: Yes (3) Chronic kidney disease, stage III (moderate) Status: Chronic Assessment and plan: SEE PLAN OF CARE LISTED ABOVE. Current Visit: Yes (4) Ischemic cardiomyopathy Status: Chronic Assessment and plan: SEE PLAN OF CARE LISTED ABOVE. Current Visit: No (5) Diabetes Status: Chronic Assessment and plan: SEE PLAN OF CARE LISTED ABOVE. Current Visit: No Qualifiers: Diabetes mellitus type: type 2 (6) Essential hypertension Status: Chronic Assessment and plan: SEE PLAN OF CARE LISTED ABOVE. Current Visit: No (7) Former smoker Status: Chronic Assessment and plan: SEE PLAN OF CARE LISTED ABOVE. Current Visit: No (8) GERD (gastroesophageal reflux disease) Status: Chronic Assessment and plan: SEE PLAN OF CARE LISTED ABOVE. Current Visit: No (9) Hyperlipidemia Status: Chronic Assessment and plan: SEE PLAN OF CARE LISTED ABOVE. Current Visit: No (10) Obesity Status: Chronic Assessment and plan: SEE PLAN OF CARE LISTED ABOVE. Current Visit: No Qualifiers: Body mass index: BMI 40.0-44.9 (11) CAD (coronary artery disease) Status: Chronic Assessment and plan: SEE PLAN OF CARE LISTED ABOVE. Current Visit: Yes (12) Sleep disorder Status: Acute Assessment and plan: SEE PLAN OF CARE LISTED ABOVE. Current Visit: Yes (13) Hypokalemia Status: Acute Assessment and plan: SEE PLAN OF CARE LISTED ABOVE. Current Visit: Yes Cardiology - PN: Subj Interval history: Cmm Inspector: Dr. Soria SUMMARY: 61-year-old NAF, PMHx hypertension and diabetes (poorly controlled), hyperlipidemia, CRF, suspected ZOLTAN, recent NSTEMI and has ischemic cardiomyopathy with EF 10-20%. Status post PCI with stenting of LAD and diagonal branch in September 2016. New onset atrial fibrillation in May 2016, treated medically. Previous cardioversion in October and has now had recurrence of atrial fib. Patient was admitted to [facility] on 12/08 after unsuccessful elective cardioversion [address] Soria. Lab work on day of admission revealed worsening creatinine and worsening CHF. She was admitted for further treatment of acute on chronic systolic and diastolic CHF, EF 10-20% , and progressive chronic renal failure with ROGERIO. Patient initially was treated with IV dobutamine and now discontinued. Has diuresed well but continues to have worsening renal function, elevated pCO2 / metabolic alkalosis. December: Resting soundly this morning. Son is present with her at bedside. No acute respiratory distress. Reports she slept through the night, she is still drowsy today. Oriented. Family member reports she has been reluctant to participate in PT, and patient has been encouraged to participate with this as much as possible today. No chest pain, dyspnea, palpitations. Supplemental oxygen, 1L/ NC today. Right knee discomfort, bruising improving. BP stable 90s/ 50s. Telemetry: Atrial fib ventricular response 80s, overall better controlled today. Labs reviewed. Cell counts stable. Potassium and magnesium normal. Renal function continues to worsen creatinine 2.3, BUN 66. CO2 50. Continue to monitor and treat patient for CHF, renal failure, atrial fibrillation. Currently stable. ROS: -Denies chest pain, tightness, palpitations -Denies dyspnea, cough -Denies abd pain, N/V. Appetite good Exam (Progress Note) - Constitutional Vitals: Period Temp Pulse Resp BP Sys/Sosa Pulse Ox Last 24 Hr 96.6 F-99 F 81-126 18-20 90-108/45-62 91-99 Exam: General appearance: no acute distress, severe morbidly obese. Pleasant and cooperative - Head Head exam: Present: normal inspection. Absent: abrasion, contusion - Eye Eye exam: Present: EOMI. Absent: periorbital swelling, scleral icterus Pupils: Present: PHILLY. Absent: dilated, fixed - ENT ENT exam: Present: normal external ear exam - Neck Neck exam: Present: normal inspection. Absent: tenderness - Respiratory Respiratory exam: Present: Bibasilar rhonchi. Absent: wheezes, stridor, accessory muscle use - Cardiovascular Cardiovascular exam: Present: irregular rhythm, mild tachycardia. Absent: bradycardia, JVD, systolic murmur - GI/Abdominal GI/Abdominal exam: Present: normal bowel sounds, other (Obese). Absent: ascites , distended, firm, tenderness - Extremities Exam Extremities exam: Present: normal capillary refill, edema (1-2+ bilateral lower extremities and pedal edema). Absent: full ROM, calf tenderness. Other: Ecchymotic bruising right knee, improved - Back Exam Back exam: Present: normal inspection - Neurological Exam Neurological exam: Present: alert, oriented X3. Grossly intact. No resting tremor today - Psychiatric Psychiatric exam: Present: normal affect, normal mood. Absent: agitated, anxious - Skin Skin exam: Present: warm, dry, intact. Absent: abrasion, cyanosis, diaphoretic , rash Result/EKG - Labs CBC & BMP: 12/16/16 04:38 12/16/16 04:38 Lab Results: I have reviewed the past 24 hour labs Labs: Laboratory Results - last 24 hr 12/15/16 12/15/16 12/15/16 07:45 12:07 16:58 WBC RBC Hgb Hct MCV MCH MCHC RDW Plt Count MPV Neut % (Auto) Lymph % (Auto) [place] % (Auto) Eos % (Auto) Baso % (Auto) Neut # (Auto) Lymph # (Auto) [place] # (Auto) Eos # (Auto) Baso # (Auto) Immature Gran % Nucleated RBC % Immature Gran # Nucleated RBCs # Immature Plt Fraction Sodium 134 L Potassium 3.7 Chloride 80 L Carbon Dioxide 48 H BUN 59 H Creatinine 2.20 H GFR Calculation 30 BUN/Creatinine Ratio 26.00 H Glucose 96 POC Glucose 208 H 151 H Calculated Osmolality 284.2 Calcium 8.0 L Magnesium 2.4 B-Natriuretic Peptide 12/15/16 12/16/16 12/16/16 22:26 04:38 04:38 WBC 10.0 RBC 4.17 Hgb 12.2 Hct 36.9 MCV 88.5 MCH 29 MCHC 33.1 RDW 13.6 Plt Count 323 MPV 11.0 Neut % (Auto) 78.5 H Lymph % (Auto) 10.2 L [place] % (Auto) 9.5 Eos % (Auto) 1.2 Baso % (Auto) 0.2 Neut # (Auto) 7.8 H Lymph # (Auto) 1.0 L [place] # (Auto) 1.0 H Eos # (Auto) 0.1 Baso # (Auto) 0.0 Immature Gran % 0.4 Nucleated RBC % 0.0 Immature Gran # 0.04 Nucleated RBCs # 0.00 Immature Plt Fraction 0.0 Sodium 134 L Potassium 3.9 Chloride 82 L Carbon Dioxide 50 H BUN 66 H Creatinine 2.30 H GFR Calculation 29 BUN/Creatinine Ratio 28.00 H Glucose 80 POC Glucose 143 H Calculated Osmolality 285.2 Calcium 8.0 L Magnesium 2.3 B-Natriuretic Peptide 12/16/16 12/16/16 04:38 07:17 WBC RBC Hgb Hct MCV MCH MCHC RDW Plt Count MPV Neut % (Auto) Lymph % (Auto) [place] % (Auto) Eos % (Auto) Baso % (Auto) Neut # (Auto) Lymph # (Auto) [place] # (Auto) Eos # (Auto) Baso # (Auto) Immature Gran % Nucleated RBC % Immature Gran # Nucleated RBCs # Immature Plt Fraction Sodium Potassium Chloride Carbon Dioxide BUN Creatinine GFR Calculation BUN/Creatinine Ratio Glucose POC Glucose 91 Calculated Osmolality Calcium Magnesium B-Natriuretic Peptide 779 H - EKG EKG results: interpreted by me, no acute changes EKG shows: atrial fibrillation Quality Measures - VTE Contraindication to Pharmacological VTE Prophylaxis: Already on Theraputic Agent , No Prophylaxis Needed Specialty Discharge - Follow Up or Referrals Olga Reynolds Attila, MD, personally performed the services described in this documentation, ascribed by Alexandra Wise RN in my presence, and it is both accurate and complete .
--- NOTE | 2016-12-16 18:55 | Nephrology Progress Note ---
Nephrology - PN: Subj Interval history: She denies shortness of breath at rest. No chest pain. Exam (PN)-Nephrology - Vital Signs Vital signs: Period Temp Pulse Resp BP Sys/Sosa Pulse Ox Last 24 Hr 96.6 F-99 F 81-102 18-18 88-98/45-62 91-99 Exam: ENT: Normal Cardiovascular: Regular rate and rhythm. No murmur rub or gallop Lungs: Clear Extremities: 2+ edema - Lab 12/16/16 04:38 12/16/16 04:38 Most recent lab results ABG pH 7.531 (7.35-7.45) H 12/14/16 18:25 ABG pCO2 58.8 MM HG (35-48) H 12/14/16 18:25 ABG pO2 52.6 MM HG (80-95) L 12/14/16 18:25 ABG HCO3 46.4 MMOL/L (20-26) H 12/14/16 18:25 ABG O2 Saturation 87.7 % (95-100) L 12/14/16 18:25 Calcium 8.0 MG/DL (8.5-10.1) L 12/16/16 04:38 Magnesium 2.3 MG/DL (1.8-2.4) 12/16/16 04:38 Assessment and Plan (1) Chronic kidney disease, stage III (moderate) Status: Chronic Assessment and plan: 61-year-old woman with: * Ischemic cardiomyopathy. Ejection fraction 15-20% * Atrial fibrillation. Status post unsuccessful cardioversion * CRF 3. * ARF. Creatinine higher. She is developing more prerenal azotemia. Zaroxolyn discontinued. She is now on acetazolamide. Monitor weight and renal function * Diabetes mellitus * Obesity Current Visit: Yes (2) ARF (acute renal failure) Status: Acute Current Visit: Yes (3) Ischemic cardiomyopathy Status: Chronic Current Visit: No (4) Status post coronary artery stent placement Status: Acute Current Visit: No (5) Diabetes Status: Chronic Current Visit: No Qualifiers: Diabetes mellitus type: type 2 (6) Obesity Status: Chronic Current Visit: No Qualifiers: Body mass index: BMI 40.0-44.9 (7) Atrial fibrillation with RVR Status: Resolved Current Visit: No Specialty Discharge - Follow Up or Referrals
[2016-12-16] MEDS: ATORVASTATIN 40 MG TABLET PO SCH (21:52)
[2016-12-16] MEDS: GABAPENTIN 300 MG CAPSULE PO SCH (21:59)
[2016-12-17 04:18] LABS: Basophils % 0.3 % (0.0-0.8); Eosinophils % 0.3 % (0.00-10.9); Hematocrit 36.7 VOL% (35.7-47.0); Hemoglobin 12.2 GM/DL (12.0-16.0); Immature Granulocytes % 0.4 %; Immature Granulocytes Absolute 0.05 #; Lymphocytes # 1.1 10*3/uL (1.4-4.0); Lymphocytes % 9.4 % (21.3-54.2); Mean Corpuscular HGB Conc 33.2 GM/DL (32-36); Mean Corpuscular Hemoglobin 30 PG (27-34); Mean Corpuscular Volume 89.7 FL (87-102); Mean Platelet Volume 11.1 FL (9.6-12.0); Monocytes # 1.2 10*3/uL (0.11-0.8); Monocytes % 10.4 % (1.7-12.7); Neutrophils # 8.9 10*3/uL (1.4-7.4); Neutrophils % 79.2 % (38.7-73.9); Platelet Count 353 T/CUMM (130-400); Red Blood Count 4.09 MC/CUMM (3.8-5.5); Red Cell Distribution Width 13.9 % (9.3-17.3); White Blood Count 11.2 T/CUMM (4-12)
[2016-12-17 04:47] LABS: Calcium 7.9 MG/DL (8.5-10.1); Magnesium 2.5 MG/DL (1.8-2.4); Potassium 3.3 MMOL/L (3.5-5.1)
--- NOTE | 2016-12-17 07:07 | Pulmonology Progress Note ---
Pulmonary - PN: Subj Interval history: This 61-year-old female has severe ischemic cardiomyopathy with ejection fraction 15-20%. She has chronic respiratory failure with an elevated PCO2 as well as a metabolic alkalosis. Added Diamox yesterday. Watching renal function closely. Creatinine is 2.3 today. BNP still elevated at 779 although this may be somewhat falsely elevated due to her renal insufficiency. She slept well and feels pretty good this morning. 12/17/2016 patient is less dyspneic. She is somewhat hypotensive. I have reduced her Diamox to a dose of 125 mg p.o. daily. Creatinine is 2.5. May have to stop the Diamox altogether. Exam (Progress Note) - Constitutional Vitals: Period Temp Pulse Resp BP Sys/Sosa Pulse Ox Last 24 Hr 96.6 F-98.1 F 85-112 16-18 81-94/45-59 90-95 Exam: Patient's alert and responsive wearing 1 L nasal oxygen. Vital signs normal. Pupils react to light. Throat is clear. Neck supple no bruits. Chest shows a few basilar rhonchi. Heart normal rate rhythm no murmurs. Abdomen soft nontender no masses. Extremities no clubbing or cyanosis. She has a trace of peripheral edema. Right knee is swollen. Results - Labs CBC & BMP: 12/17/16 03:16 12/17/16 03:16 Lab Results: I have reviewed the past 24 hour labs Assessment and Plan (1) Congestive heart failure Status: Chronic Assessment and plan: She has severe ischemic cardiomyopathy which is acute on chronic systolic heart failure. Ejection fraction 15-20%. She has been diuresed 5 kg. Renal function is gotten slightly worse. We need to watch this closely. 12/16/2016 continuing with gentle diuresis. Watch renal function. 12/17/2016 she has diuresed a good bit. She is hypotensive. I need to back off that a little. Defer to cardiology. Current Visit: No (2) Diabetes Status: Chronic Assessment and plan: Fair control of diabetes. 12/16/16 glucoses fairly well controlled. 12/17/2016 diabetes well controlled. Current Visit: No Qualifiers: Diabetes mellitus type: type 2 (3) Obesity Status: Chronic Assessment and plan: Of course needs long-term weight loss. Current Visit: No Qualifiers: Body mass index: BMI 40.0-44.9 (4) Ischemic cardiomyopathy Status: Chronic Assessment and plan: Severe ischemic heart disease. Ejection fraction 15-20% and had stents placed about 2 months ago. She is requiring anticoagulants for this which further prevents orthopedic from replacing her knee. She would be a high risk for that. 12/16/2016 continuing with gentle diuresis. 12/17/2016 has severe cardiomyopathy. Blood pressure on low side. Defer to cardiology. Current Visit: No (5) Status post coronary artery stent placement Status: Acute Assessment and plan: As mentioned she had 2 stents placed in September of this year. Current Visit: No (6) Chronic kidney disease, stage III (moderate) Status: Chronic Assessment and plan: Creatinine is 2.2. It has fallen since admission but risen slightly over the last couple of days. We need to hold back on diuresing a little. I have stopped her Zaroxolyn. I am going to use Diamox for her metabolic alkalosis. 12/16/2016 creatinine 2.3 12/17/2016 creatinine 2.5. Zaroxolyn has been stopped. Diamox reduced. Current Visit: Yes (7) Pain of right knee after injury Status: Acute Assessment and plan: Severe tricompartmental arthritis right knee. Would be candidate for surgery if not for the high risk of her medical problems. Current Visit: Yes (8) Treatment-emergent central sleep apnea Status: Acute Assessment and plan: This per Dr. Flores's note. She has obstructive sleep apnea but in treating that it brings out her central sleep apnea. She does best with just 1 L of nasal oxygen and no CPAP, no BiPAP. 12/16/2016 continuing oxygen at 1 L at night. 12/17/2016 she does not do well with BiPAP or CPAP. Continue with low-flow nasal oxygen. Current Visit: Yes Specialty Discharge - Follow Up or Referrals
[2016-12-17] MEDS ORDERED: acetaZOLAMIDE 250 MG TABLET PO SCH (09:00)
[2016-12-17] MEDS: APIXABAN 5 MG TABLET PO SCH ×2 (09:37→21:59)
[2016-12-17] MEDS: POTASSIUM CHLORIDE 20 MEQ TABLET PO SCH (09:37)
[2016-12-17] MEDS: INSULIN LISPRO 100 UNIT/ML SUBCUT SCH ×4 (09:37→21:59)
[2016-12-17] MEDS: DOCUSATE SODIUM 100 MG CAPSULE PO SCH ×2 (09:37→21:59)
[2016-12-17] MEDS: FENOFIBRATE 145 MG TABLET PO SCH (09:37)
[2016-12-17] MEDS: FUROSEMIDE 80 MG TABLET PO SCH (09:38)
[2016-12-17] MEDS: ASCORBIC ACID 500 MG TABLET PO SCH (09:38)
[2016-12-17] MEDS: CLOPIDOGREL 75 MG TABLET PO SCH (09:38)
[2016-12-17] MEDS: PANTOPRAZOLE 40 MG TABLET PO SCH (09:38)
[2016-12-17] MEDS: CARVEDILOL 6.25 MG TABLET PO SCH ×2 (09:38→21:59)
[2016-12-17] MEDS: AMIODARONE 200 MG TABLET PO SCH (09:38)
[2016-12-17] MEDS: sitaGLIPtin 25 MG TABLET PO SCH (09:38)
[2016-12-17] MEDS: INSULIN GLARGINE 100 UNIT/ML SUBCUT SCH (09:39)
[2016-12-17] MEDS: DIGOXIN 0.125 MG TABLET PO SCH (12:25)
--- NOTE | 2016-12-17 15:39 | Nephrology Progress Note ---
Nephrology - PN: Subj Interval history: No shortness of breath or chest pain. No new symptoms. Exam (PN)-Nephrology - Vital Signs Vital signs: Period Temp Pulse Resp BP Sys/Sosa Pulse Ox Last 24 Hr 96.7 F-98.1 F 78-112 16-20 78-94/46-59 90-91 Exam: Gen.: Alert and oriented x3. ENT: Pupils equal round reactive to light. EOMs intact. Mucous membranes moist. Neck: Supple. No JVD or bruit. Cardiovascular: Irregularly irregular rhythm Lungs: Clear Abdomen: Soft. Nontender. Positive bowel sounds. No organomegaly Extremities: 2+ brawny edema - Lab 12/17/16 03:16 12/17/16 03:16 Most recent lab results ABG pH 7.531 (7.35-7.45) H 12/14/16 18:25 ABG pCO2 58.8 MM HG (35-48) H 12/14/16 18:25 ABG pO2 52.6 MM HG (80-95) L 12/14/16 18:25 ABG HCO3 46.4 MMOL/L (20-26) H 12/14/16 18:25 ABG O2 Saturation 87.7 % (95-100) L 12/14/16 18:25 Calcium 7.9 MG/DL (8.5-10.1) L 12/17/16 03:16 Magnesium 2.5 MG/DL (1.8-2.4) H 12/17/16 03:16 Assessment and Plan (1) Chronic kidney disease, stage III (moderate) Status: Chronic Assessment and plan: 61-year-old woman with: * Ischemic cardiomyopathy. Ejection fraction 15-20% * Atrial fibrillation. Status post unsuccessful cardioversion * CRF 3. * ARF. Creatinine higher. Diamox decreased. Lasix will be held * Diabetes mellitus * Obesity Current Visit: Yes (2) ARF (acute renal failure) Status: Acute Current Visit: Yes (3) Ischemic cardiomyopathy Status: Chronic Current Visit: No (4) Status post coronary artery stent placement Status: Acute Current Visit: No (5) Diabetes Status: Chronic Current Visit: No Qualifiers: Diabetes mellitus type: type 2 (6) Obesity Status: Chronic Current Visit: No Qualifiers: Body mass index: BMI 40.0-44.9 (7) Atrial fibrillation with RVR Status: Resolved Current Visit: No Specialty Discharge - Follow Up or Referrals
[2016-12-17] MEDS ORDERED: DIGOXIN 0.125 MG TABLET PO SCH (15:45)
--- NOTE | 2016-12-17 15:49 | Cardiology Progress Note ---
Rodolfo, Alexandra Wise RN, am scribing for, and in the presence of, Lionel Espinoza MD 15 :48. Assessment and Plan - Time spent with patient Time spent with patient: Greater than 30 minutes (1) Acute on chronic combined systolic (congestive) and diastolic (congestive) heart failure Status: Chronic Assessment and plan: 61 year old NAF, severe morbid obesity, sleep disorder, HTN, HLD, DM, CKD III, persistent AF. Recent NSTEMI with stenting x 2 to LAD and diagonal and iscemic cardiomyopathy, EF 10-20%. Now admitted with acute on chronic combined CHF and ROGERIO. Has shown improvement with IV diuresis and IV Dobutrex (now stopped) EKG: AF w/ ventricular response 90s. PVCs, NSVT -CHF- No SOB at rest, edema improved. p.o. diuresis, per renal. Lasix dc'd this morning. Diuresed well. Severe ICM, borderline BP, required dobutamine support earlier, which caused more ectopy and RVR with A. fib -Decrease digoxin to 0.0 625 mg daily. if renal function continues to deteriorate, we may have to stop the -A. fib, persistent. I doubt that we can achieve lasting rhythm control, given her comorbidities. Continue rate control, anticoagulate. We may stop amiodarone, if rhythm control is not feasible and rate control is acceptable with beta-angel only, however, blood pressure has been an issue so far -ZOLTAN/OHS-quite severe with central sleep apnea. Intolerant of CPAP/BiPAP. Avoid high dose pain meds and oxygenation. Appreciate assistance from pulmonary and sleep medicine. Use of Diamox was limited by her comorbidities -CAD- no angina. Continue statin, Plavix -Continue PT. -Poor prognosis with severe ICM, CHF NYHA IV, significant comorbidities. 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 -Home hospice is being set up. From a cardiac perspective she is ready for that. Current Visit: Yes (2) Atrial fibrillation Status: Chronic Assessment and plan: SEE PLAN OF CARE LISTED ABOVE. Current Visit: Yes (3) Chronic kidney disease, stage III (moderate) Status: Chronic Assessment and plan: SEE PLAN OF CARE LISTED ABOVE. Current Visit: Yes (4) Ischemic cardiomyopathy Status: Chronic Assessment and plan: SEE PLAN OF CARE LISTED ABOVE. Current Visit: No (5) Diabetes Status: Chronic Assessment and plan: SEE PLAN OF CARE LISTED ABOVE. Current Visit: No Qualifiers: Diabetes mellitus type: type 2 (6) Essential hypertension Status: Chronic Assessment and plan: SEE PLAN OF CARE LISTED ABOVE. Current Visit: No (7) Former smoker Status: Chronic Assessment and plan: SEE PLAN OF CARE LISTED ABOVE. Current Visit: No (8) GERD (gastroesophageal reflux disease) Status: Chronic Assessment and plan: SEE PLAN OF CARE LISTED ABOVE. Current Visit: No (9) Hyperlipidemia Status: Chronic Assessment and plan: SEE PLAN OF CARE LISTED ABOVE. Current Visit: No (10) Obesity Status: Chronic Assessment and plan: SEE PLAN OF CARE LISTED ABOVE. Current Visit: No Qualifiers: Body mass index: BMI 40.0-44.9 (11) CAD (coronary artery disease) Status: Chronic Assessment and plan: SEE PLAN OF CARE LISTED ABOVE. Current Visit: Yes (12) Sleep disorder Status: Acute Assessment and plan: SEE PLAN OF CARE LISTED ABOVE. Current Visit: Yes (13) Hypokalemia Status: Acute Assessment and plan: SEE PLAN OF CARE LISTED ABOVE. Current Visit: Yes Cardiology - PN: Subj Interval history: Medical Reception Specialist: Dr. Soria SUMMARY: 61-year-old NAF, PMHx hypertension and diabetes (poorly controlled), hyperlipidemia, CRF, suspected ZOLTAN, recent NSTEMI and has ischemic cardiomyopathy with EF 10-20%. Status post PCI with stenting of LAD and diagonal branch in September 2016. New onset atrial fibrillation in May 2016, treated medically. Previous cardioversion in October and has now had recurrence of atrial fib. Patient was admitted to [facility] on 12/08 after unsuccessful elective cardioversion [address] Soria. Lab work on day of admission revealed worsening creatinine and worsening CHF. She was admitted for further treatment of acute on chronic systolic and diastolic CHF, EF 10-20% , and progressive chronic renal failure with ROGERIO. Patient initially was treated with IV dobutamine and now discontinued. Has diuresed well but continues to have worsening renal function. Elevated pCO2/metabolic alkalosis which is currently improving. Patient is now being evaluated for hospice at discharge. December: Patient is awake, alert this morning. No acute respiratory distress. Denies resting dyspnea, no chest pain or palpitations. Right knee discomfort present but stable today. SBP 80s this morning, MAP around 60 mmHg. Zaroxolyn stopped yesterday. Diamox dosage decreased this morning. Tele: atrial fib w/ ventricular response 80s, less frequents bursts RVR 115. Labs reviewed. Cell counts stable. Hypokalemia, 3.3. CO2 44. Creatinine continues to climb, 2.5 with BUN 72. Mild hypermagnesemia, 2.5. Continue to monitor and treat patient for renal failure, cardiomyopathy, and CHF. These are currently stable. ROS: -denies dyspnea at rest, cough -denies chest pain, palpitations -denies abd pain, N/V. Appetite good. Exam (Progress Note) - Constitutional Vitals: Period Temp Pulse Resp BP Sys/Sosa Pulse Ox Last 24 Hr 96.7 F-98.1 F 78-112 16-20 81-94/46-59 90-91 Exam: General appearance: no acute distress, severe morbidly obese. Pleasant and cooperative - Head Head exam: Present: normal inspection. Absent: abrasion, contusion - Eye Eye exam: Present: EOMI. Absent: periorbital swelling, scleral icterus Pupils: Present: PHILLY. Absent: dilated, fixed - ENT ENT exam: Present: normal external ear exam - Neck Neck exam: Present: normal inspection. Absent: tenderness - Respiratory Respiratory exam: Present: Bibasilar rhonchi. Absent: wheezes, stridor, accessory muscle use - Cardiovascular Cardiovascular exam: Present: irregular rhythm, mild tachycardia. Absent: bradycardia, JVD, systolic murmur - GI/Abdominal GI/Abdominal exam: Present: normal bowel sounds, other (Obese). Absent: ascites , distended, firm, tenderness - Extremities Exam Extremities exam: Present: normal capillary refill, edema (1-2+ bilateral lower extremities and pedal edema). Absent: full ROM, calf tenderness. Other: Ecchymotic bruising right knee, improved - Back Exam Back exam: Present: normal inspection - Neurological Exam Neurological exam: Present: alert, oriented X3. Grossly intact. No resting tremor today - Psychiatric Psychiatric exam: Present: normal affect, normal mood. Absent: agitated, anxious - Skin Skin exam: Present: warm, dry, intact. Absent: abrasion, cyanosis, diaphoretic , rash Result/EKG - Labs CBC & BMP: 12/17/16 03:16 12/17/16 03:16 Lab Results: I have reviewed the past 24 hour labs Labs: Laboratory Results - last 24 hr 12/16/16 12/16/16 12/16/16 11:15 16:18 20:30 WBC RBC Hgb Hct MCV MCH MCHC RDW Plt Count MPV Neut % (Auto) Lymph % (Auto) [place] % (Auto) Eos % (Auto) Baso % (Auto) Neut # (Auto) Lymph # (Auto) [place] # (Auto) Eos # (Auto) Baso # (Auto) Immature Gran % Nucleated RBC % Immature Gran # Nucleated RBCs # Immature Plt Fraction Sodium Potassium Chloride Carbon Dioxide Anion Gap BUN Creatinine GFR Calculation BUN/Creatinine Ratio Glucose POC Glucose 168 H 230 H 120 H Calculated Osmolality Calcium Magnesium 12/17/16 12/17/16 12/17/16 03:16 03:16 07:22 WBC 11.2 RBC 4.09 Hgb 12.2 Hct 36.7 MCV 89.7 MCH 30 MCHC 33.2 RDW 13.9 Plt Count 353 MPV 11.1 Neut % (Auto) 79.2 H Lymph % (Auto) 9.4 L [place] % (Auto) 10.4 Eos % (Auto) 0.3 Baso % (Auto) 0.3 Neut # (Auto) 8.9 H Lymph # (Auto) 1.1 L [place] # (Auto) 1.2 H Eos # (Auto) 0.0 Baso # (Auto) 0.0 Immature Gran % 0.4 Nucleated RBC % 0.0 Immature Gran # 0.05 Nucleated RBCs # 0.00 Immature Plt Fraction 0.0 Sodium 136 Potassium 3.3 L Chloride 84 L Carbon Dioxide 44 H Anion Gap 11.3 BUN 72 H Creatinine 2.50 H GFR Calculation 26 BUN/Creatinine Ratio 28.00 H Glucose 77 POC Glucose 91 Calculated Osmolality 291.0 Calcium 7.9 L Magnesium 2.5 H - EKG EKG results: interpreted by me, no acute changes EKG shows: atrial fibrillation Quality Measures - VTE Contraindication to Pharmacological VTE Prophylaxis: Already on Theraputic Agent , No Prophylaxis Needed Specialty Discharge - Follow Up or Referrals Olga Reynolds Attila, MD, personally performed the services described in this documentation, ascribed by Alexandra Wise RN in my presence, and it is both accurate and complete [id number] .
[2016-12-17] MEDS: ACETAMINOPHEN 325 MG TABLET PO PRN (21:58)
[2016-12-17] MEDS: GABAPENTIN 300 MG CAPSULE PO SCH (21:59)
[2016-12-17] MEDS: ATORVASTATIN 40 MG TABLET PO SCH (21:59)
[2016-12-18 03:34] LABS: Basophils % 0.2 % (0.0-0.8); Eosinophils # 0.1 10*3/uL (0.0-0.87); Hematocrit 36.5 VOL% (35.7-47.0); Hemoglobin 12.1 GM/DL (12.0-16.0); Immature Granulocytes % 0.5 %; Immature Granulocytes Absolute 0.05 #; Lymphocytes % 9.6 % (21.3-54.2); Mean Corpuscular HGB Conc 33.2 GM/DL (32-36); Mean Corpuscular Hemoglobin 30 PG (27-34); Mean Corpuscular Volume 90.1 FL (87-102); Monocytes # 1.4 10*3/uL (0.11-0.8); Monocytes % 12.7 % (1.7-12.7); Neutrophils # 8.1 10*3/uL (1.4-7.4); Platelet Count 387 T/CUMM (130-400); Red Blood Count 4.05 MC/CUMM (3.8-5.5); Red Cell Distribution Width 13.9 % (9.3-17.3); White Blood Count 10.7 T/CUMM (4-12)
[2016-12-18 05:09] LABS: Calcium 8.1 MG/DL (8.5-10.1)
[2016-12-18 05:10] LABS: Blood Urea Nitrogen 81 MG/DL (7-18); Glucose 84 MG/DL (74-106); Magnesium 2.9 MG/DL (1.8-2.4); Potassium 3.5 MMOL/L (3.5-5.1); Sodium 136 MMOL/L (136-145)
--- NOTE | 2016-12-18 07:01 | Pulmonology Progress Note ---
Pulmonary - PN: Subj Interval history: This 61-year-old female has severe ischemic cardiomyopathy with ejection fraction 15-20%. She has chronic respiratory failure with an elevated PCO2 as well as a metabolic alkalosis. Added Diamox yesterday. Watching renal function closely. Creatinine is 2.3 today. BNP still elevated at 779 although this may be somewhat falsely elevated due to her renal insufficiency. She slept well and feels pretty good this morning. 12/17/2016 patient is less dyspneic. She is somewhat hypotensive. I have reduced her Diamox to a dose of 125 mg p.o. daily. Creatinine is 2.5. May have to stop the Diamox altogether. 12/18/2016 patient fairly stable as far as her dyspnea is concerned. She still has a CO2 of 50. She is on low-dose Diamox. Creatinine is 2.9. It appears that she is going to be discharged with hospice care. Exam (Progress Note) - Constitutional Vitals: Period Temp Pulse Resp BP Sys/Sosa Pulse Ox Last 24 Hr 96.9 F-98.2 F 52-84 16-20 78-93/46-52 90-96 Exam: Patient's alert and responsive wearing 1 L nasal oxygen. Vital signs normal. Pupils react to light. Throat is clear. Neck supple no bruits. Chest shows a few basilar rhonchi. Heart normal rate rhythm no murmurs. Abdomen soft nontender no masses. Extremities no clubbing or cyanosis. She has a trace of peripheral edema. Right knee is swollen. Little change from yesterday. Results - Labs CBC & BMP: 12/18/16 03:04 12/18/16 03:05 Lab Results: I have reviewed the past 24 hour labs Assessment and Plan (1) Congestive heart failure Status: Chronic Assessment and plan: She has severe ischemic cardiomyopathy which is acute on chronic systolic heart failure. Ejection fraction 15-20%. She has been diuresed 5 kg. Renal function is gotten slightly worse. We need to watch this closely. 12/16/2016 continuing with gentle diuresis. Watch renal function. 12/17/2016 she has diuresed a good bit. She is hypotensive. I need to back off that a little. Defer to cardiology. 12/18/2016 congestive heart failure is improved. Current Visit: No (2) Diabetes Status: Chronic Assessment and plan: Fair control of diabetes. 12/16/16 glucoses fairly well controlled. 12/17/2016 diabetes well controlled. 12/18/2016 fair control of diabetes. Current Visit: No Qualifiers: Diabetes mellitus type: type 2 (3) Obesity Status: Chronic Assessment and plan: Of course needs long-term weight loss. Current Visit: No Qualifiers: Body mass index: BMI 40.0-44.9 (4) Ischemic cardiomyopathy Status: Chronic Assessment and plan: Severe ischemic heart disease. Ejection fraction 15-20% and had stents placed about 2 months ago. She is requiring anticoagulants for this which further prevents orthopedic from replacing her knee. She would be a high risk for that. 12/16/2016 continuing with gentle diuresis. 12/17/2016 has severe cardiomyopathy. Blood pressure on low side. Defer to cardiology. 12/18/2016 continue treatment for heart failure due to ischemic cardiomyopathy. Cardiology following. Current Visit: No (5) Status post coronary artery stent placement Status: Acute Assessment and plan: As mentioned she had 2 stents placed in September of this year. Current Visit: No (6) Chronic kidney disease, stage III (moderate) Status: Chronic Assessment and plan: Creatinine is 2.2. It has fallen since admission but risen slightly over the last couple of days. We need to hold back on diuresing a little. I have stopped her Zaroxolyn. I am going to use Diamox for her metabolic alkalosis. 12/16/2016 creatinine 2.3 12/17/2016 creatinine 2.5. Zaroxolyn has been stopped. Diamox reduced. 12/18/2016 creatinine 2.9. Will change Diamox to every other day. Current Visit: Yes (7) Pain of right knee after injury Status: Acute Assessment and plan: Severe tricompartmental arthritis right knee. Would be candidate for surgery if not for the high risk of her medical problems. Current Visit: Yes (8) Treatment-emergent central sleep apnea Status: Acute Assessment and plan: This per Dr. Flores's note. She has obstructive sleep apnea but in treating that it brings out her central sleep apnea. She does best with just 1 L of nasal oxygen and no CPAP, no BiPAP. 12/16/2016 continuing oxygen at 1 L at night. 12/17/2016 she does not do well with BiPAP or CPAP. Continue with low-flow nasal oxygen. 12/18/[address] Quevedo Current Visit: Yes Specialty Discharge - Follow Up or Referrals
[2016-12-18] MEDS ORDERED: acetaZOLAMIDE 250 MG TABLET PO SCH (07:30)
[2016-12-18] MEDS: INSULIN LISPRO 100 UNIT/ML SUBCUT SCH ×4 (08:35→22:02)
[2016-12-18] MEDS: FENOFIBRATE 145 MG TABLET PO SCH (09:22)
[2016-12-18] MEDS: DOCUSATE SODIUM 100 MG CAPSULE PO SCH ×2 (09:22→22:01)
[2016-12-18] MEDS: CARVEDILOL 6.25 MG TABLET PO SCH ×2 (09:23→22:01)
[2016-12-18] MEDS: APIXABAN 5 MG TABLET PO SCH ×2 (09:23→22:01)
[2016-12-18] MEDS: POTASSIUM CHLORIDE 20 MEQ TABLET PO SCH (09:23)
[2016-12-18] MEDS: ASCORBIC ACID 500 MG TABLET PO SCH (09:23)
[2016-12-18] MEDS: ACETAMINOPHEN 325 MG TABLET PO PRN (09:23)
[2016-12-18] MEDS: sitaGLIPtin 25 MG TABLET PO SCH (09:23)
[2016-12-18] MEDS: AMIODARONE 200 MG TABLET PO SCH (09:23)
[2016-12-18] MEDS: PANTOPRAZOLE 40 MG TABLET PO SCH (09:23)
[2016-12-18] MEDS: CLOPIDOGREL 75 MG TABLET PO SCH (09:24)
[2016-12-18] MEDS: INSULIN GLARGINE 100 UNIT/ML SUBCUT SCH (09:24)
--- NOTE | 2016-12-18 13:17 | Nephrology Progress Note ---
Nephrology - PN: Subj Interval history: She denies shortness of breath or chest pain. Exam (PN)-Nephrology - Vital Signs Vital signs: Period Temp Pulse Resp BP Sys/Sosa Pulse Ox Last 24 Hr 96.2 F-98.2 F 52-98 16-20 78-93/47-53 90-96 Exam: ENT: Normal Cardiovascular: Irregularly irregular rhythm Lungs: Clear Extremities: 2+ brawny edema - Lab 12/18/16 03:04 12/18/16 03:05 Most recent lab results ABG pH 7.531 (7.35-7.45) H 12/14/16 18:25 ABG pCO2 58.8 MM HG (35-48) H 12/14/16 18:25 ABG pO2 52.6 MM HG (80-95) L 12/14/16 18:25 ABG HCO3 46.4 MMOL/L (20-26) H 12/14/16 18:25 ABG O2 Saturation 87.7 % (95-100) L 12/14/16 18:25 Calcium 8.1 MG/DL (8.5-10.1) L 12/18/16 03:05 Magnesium 2.9 MG/DL (1.8-2.4) H 12/18/16 03:05 Assessment and Plan (1) Chronic kidney disease, stage III (moderate) Status: Chronic Assessment and plan: 61-year-old woman with: * Ischemic cardiomyopathy. Ejection fraction 15-20% * Atrial fibrillation. Status post unsuccessful cardioversion * CRF 3. * ARF. Creatinine higher. Diamox p.o. Lasix stopped * Diabetes mellitus * Obesity Current Visit: Yes (2) ARF (acute renal failure) Status: Acute Current Visit: Yes (3) Ischemic cardiomyopathy Status: Chronic Current Visit: No (4) Status post coronary artery stent placement Status: Acute Current Visit: No (5) Diabetes Status: Chronic Current Visit: No Qualifiers: Diabetes mellitus type: type 2 (6) Obesity Status: Chronic Current Visit: No Qualifiers: Body mass index: BMI 40.0-44.9 (7) Atrial fibrillation with RVR Status: Resolved Current Visit: No Specialty Discharge - Follow Up or Referrals
--- NOTE | 2016-12-18 15:54 | Cardiology Progress Note ---
Rodolfo, Alexandra Wise RN, am scribing for, and in the presence of, Lionel Espinoza MD 15 :54. Assessment and Plan - Time spent with patient Time spent with patient: Greater than 30 minutes (1) Acute on chronic combined systolic (congestive) and diastolic (congestive) heart failure Status: Chronic Assessment and plan: 61 year old NAF, severe morbid obesity, sleep disorder, HTN, HLD, DM, CKD III, persistent AF. Recent NSTEMI with stenting x 2 to LAD and diagonal and iscemic cardiomyopathy, EF 10-20%. Now admitted with acute on chronic combined CHF and ROGERIO. Has shown improvement with IV diuresis and IV Dobutrex (now stopped) EKG: AF w/ ventricular response 90s. PVCs, NSVT -CHF- No SOB at rest, edema improved. p.o. diuresis, per renal. Lasix dc'd this morning. Diuresed well. Severe ICM, borderline BP, required dobutamine support earlier, which caused more ectopy and RVR with A. fib. Less ectopy after dc'd. -Stop digoxin, worsening renal function. -A. fib, persistent. Rate well controlled currently. I doubt that we can achieve lasting rhythm control, given her comorbidities. Continue rate control , anticoagulate. We may stop amiodarone in the near future, if rhythm control is not feasible and rate control is acceptable with beta-angel only, however, blood pressure has been an issue so far -ZOLTAN/OHS-quite severe with central sleep apnea. Intolerant of CPAP/BiPAP. Avoid high dose pain meds and oxygenation. Appreciate assistance from pulmonary and sleep medicine. Use of Diamox was limited by her comorbidities -CAD- no angina. Continue statin, Plavix -Poor prognosis with severe ICM, CHF NYHA IV, significant comorbidities. 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 -Due to her severe cardiomyopathy, once renal function allows, recommend to resume diuretics -Discharge to home hospice, once set up. Hopefully tomorrow Current Visit: Yes (2) Atrial fibrillation Status: Chronic Assessment and plan: SEE PLAN OF CARE LISTED ABOVE. Current Visit: Yes (3) Chronic kidney disease, stage III (moderate) Status: Chronic Assessment and plan: SEE PLAN OF CARE LISTED ABOVE. Current Visit: Yes (4) Ischemic cardiomyopathy Status: Chronic Assessment and plan: SEE PLAN OF CARE LISTED ABOVE. Current Visit: No (5) Diabetes Status: Chronic Assessment and plan: SEE PLAN OF CARE LISTED ABOVE. Current Visit: No Qualifiers: Diabetes mellitus type: type 2 (6) Essential hypertension Status: Chronic Assessment and plan: SEE PLAN OF CARE LISTED ABOVE. Current Visit: No (7) Former smoker Status: Chronic Assessment and plan: SEE PLAN OF CARE LISTED ABOVE. Current Visit: No (8) GERD (gastroesophageal reflux disease) Status: Chronic Assessment and plan: SEE PLAN OF CARE LISTED ABOVE. Current Visit: No (9) Hyperlipidemia Status: Chronic Assessment and plan: SEE PLAN OF CARE LISTED ABOVE. Current Visit: No (10) Obesity Status: Chronic Assessment and plan: SEE PLAN OF CARE LISTED ABOVE. Current Visit: No Qualifiers: Body mass index: BMI 40.0-44.9 (11) CAD (coronary artery disease) Status: Chronic Assessment and plan: SEE PLAN OF CARE LISTED ABOVE. Current Visit: Yes (12) Sleep disorder Status: Acute Assessment and plan: SEE PLAN OF CARE LISTED ABOVE. Current Visit: Yes (13) Hypokalemia Status: Acute Assessment and plan: SEE PLAN OF CARE LISTED ABOVE. Current Visit: Yes Cardiology - PN: Subj Interval history: Manager Adobe: Dr. Soria SUMMARY: 61-year-old NAF, PMHx hypertension and diabetes (poorly controlled), hyperlipidemia, CRF, suspected ZOLTAN, recent NSTEMI and has ischemic cardiomyopathy with EF 10-20%. Status post PCI with stenting of LAD and diagonal branch in September 2016. New onset atrial fibrillation in May 2016, treated medically. Previous cardioversion in October and has now had recurrence of atrial fib. Patient was admitted to [facility] on 12/08 after unsuccessful elective cardioversion [address] Soria. Lab work on day of admission revealed worsening creatinine and worsening CHF. She was admitted for further treatment of acute on chronic systolic and diastolic CHF, EF 10-20% , and progressive chronic renal failure with ROGERIO. Patient initially was treated with IV dobutamine and now discontinued. Has diuresed well but continues to have worsening renal function. Elevated pCO2/metabolic alkalosis which is currently improving. Patient is now being evaluated for hospice at discharge. December: No change in hemodynamic status overnight. Patient awake, alert. No CP, SOB, or other complaint except right knee ache. Final discharge planning for hospice is being completed. Patient and family agreeable. Patient feels she is up to going home today, but will not have appropriate motor vehicle transportation available until tomorrow morning. Creatinine up to 2.9. SBP 80-90 mmHg. Telemetry: AF, vent response 80s-90s ROS: -Denies chest pain, palpitations -Denies dyspnea, orthopnea, cough -Denies abd pain, N/V. Good appetite -Right knee discomfort Exam (Progress Note) - Constitutional Vitals: Period Temp Pulse Resp BP Sys/Sosa Pulse Ox Last 24 Hr 96.2 F-98.2 F 52-84 16-20 78-93/46-52 90-96 Exam: General appearance: no acute distress, severe morbidly obese. Pleasant and cooperative - Head Head exam: Present: normal inspection. Absent: abrasion, contusion - Eye Eye exam: Present: EOMI. Absent: periorbital swelling, scleral icterus Pupils: Present: PHILLY. Absent: dilated, fixed - ENT ENT exam: Present: normal external ear exam - Neck Neck exam: Present: normal inspection. Absent: tenderness - Respiratory Respiratory exam: Present: Bibasilar rhonchi-improving. Absent: wheezes, stridor, accessory muscle use - Cardiovascular Cardiovascular exam: Present: irregular rhythm, . Absent: bradycardia, JVD, systolic murmur - GI/Abdominal GI/Abdominal exam: Present: normal bowel sounds, other (Obese). Absent: ascites , distended, firm, tenderness - Extremities Exam Extremities exam: Present: normal capillary refill, edema (1-2+ bilateral lower extremities and pedal edema). Absent: full ROM, calf tenderness. Other: Ecchymotic bruising right knee, improved - Back Exam Back exam: Present: normal inspection - Neurological Exam Neurological exam: Present: alert, oriented X3. Grossly intact. No resting tremor. - Psychiatric Psychiatric exam: Present: normal affect, normal mood. Absent: agitated, anxious - Skin Skin exam: Present: warm, dry, intact. Absent: abrasion, cyanosis, diaphoretic , rash Result/EKG - Labs CBC & BMP: 12/18/16 03:04 12/18/16 03:05 Lab Results: I have reviewed the past 24 hour labs Labs: Laboratory Results - last 24 hr 12/17/16 12/17/16 12/17/16 11:37 15:58 20:29 WBC RBC Hgb Hct MCV MCH MCHC RDW Plt Count MPV Neut % (Auto) Lymph % (Auto) [place] % (Auto) Eos % (Auto) Baso % (Auto) Neut # (Auto) Lymph # (Auto) [place] # (Auto) Eos # (Auto) Baso # (Auto) Immature Gran % Nucleated RBC % Immature Gran # Nucleated RBCs # Immature Plt Fraction Sodium Potassium Chloride Carbon Dioxide BUN Creatinine GFR Calculation BUN/Creatinine Ratio Glucose POC Glucose 207 H 135 H 151 H Calculated Osmolality Calcium Magnesium 12/17/16 12/18/16 12/18/16 23:39 03:04 03:05 WBC 10.7 RBC 4.05 Hgb 12.1 Hct 36.5 MCV 90.1 MCH 30 MCHC 33.2 RDW 13.9 Plt Count 387 MPV 11.0 Neut % (Auto) 76.0 H Lymph % (Auto) 9.6 L [place] % (Auto) 12.7 Eos % (Auto) 1.0 Baso % (Auto) 0.2 Neut # (Auto) 8.1 H Lymph # (Auto) 1.0 L [place] # (Auto) 1.4 H Eos # (Auto) 0.1 Baso # (Auto) 0.0 Immature Gran % 0.5 Nucleated RBC % 0.0 Immature Gran # 0.05 Nucleated RBCs # 0.00 Immature Plt Fraction 0.0 Sodium 136 Potassium 3.5 Chloride 85 L Carbon Dioxide 50 H BUN 81 H Creatinine 2.90 H GFR Calculation 22 BUN/Creatinine Ratio 27.00 H Glucose 84 POC Glucose 96 Calculated Osmolality 294.0 Calcium 8.1 L Magnesium 2.9 H 12/18/16 07:50 WBC RBC Hgb Hct MCV MCH MCHC RDW Plt Count MPV Neut % (Auto) Lymph % (Auto) [place] % (Auto) Eos % (Auto) Baso % (Auto) Neut # (Auto) Lymph # (Auto) [place] # (Auto) Eos # (Auto) Baso # (Auto) Immature Gran % Nucleated RBC % Immature Gran # Nucleated RBCs # Immature Plt Fraction Sodium Potassium Chloride Carbon Dioxide BUN Creatinine GFR Calculation BUN/Creatinine Ratio Glucose POC Glucose 116 H Calculated Osmolality Calcium Magnesium - EKG EKG results: interpreted by me, no acute changes EKG shows: atrial fibrillation Quality Measures - VTE Contraindication to Pharmacological VTE Prophylaxis: Already on Theraputic Agent , No Prophylaxis Needed Specialty Discharge - Follow Up or Referrals I, Lionel Espinoza MD, personally performed the services described in this documentation, ascribed by Alexandra Wise RN in my presence, and it is both accurate and complete .
[2016-12-18] MEDS: GABAPENTIN 300 MG CAPSULE PO SCH (22:01)
[2016-12-18] MEDS: ATORVASTATIN 40 MG TABLET PO SCH (22:02)
[2016-12-19 04:40] LABS: Basophils % 0.2 % (0.0-0.8); Eosinophils % 0.2 % (0.00-10.9); Hematocrit 36.9 VOL% (35.7-47.0); Hemoglobin 12.2 GM/DL (12.0-16.0); Immature Granulocytes % 0.5 %; Immature Granulocytes Absolute 0.06 #; Lymphocytes # 1.3 10*3/uL (1.4-4.0); Lymphocytes % 9.9 % (21.3-54.2); Mean Corpuscular HGB Conc 33.1 GM/DL (32-36); Mean Corpuscular Hemoglobin 29 PG (27-34); Mean Corpuscular Volume 88.7 FL (87-102); Mean Platelet Volume 11.2 FL (9.6-12.0); Monocytes # 1.1 10*3/uL (0.11-0.8); Monocytes % 8.8 % (1.7-12.7); Neutrophils # 10.2 10*3/uL (1.4-7.4); Neutrophils % 80.4 % (38.7-73.9); Platelet Count 414 T/CUMM (130-400); Red Blood Count 4.16 MC/CUMM (3.8-5.5); Red Cell Distribution Width 14.2 % (9.3-17.3); White Blood Count 12.7 T/CUMM (4-12)
[2016-12-19 05:13] LABS: Calcium 8.2 MG/DL (8.5-10.1); Magnesium 2.9 MG/DL (1.8-2.4); Potassium 3.8 MMOL/L (3.5-5.1)
--- NOTE | 2016-12-19 07:55 | Pulmonology Progress Note ---
Pulmonary - PN: Subj Interval history: Patient is a 61-year-old that has a severe ischemic cardiomyopathy. Her ejection fraction is 15-20%. She has chronic CO2 retention with obesity also. She also has chronic renal insufficiency. She says she had a fairly good night and is resting in bed. She is able to lie flat in bed and seems comfortable. She says she is not short of breath. She says she did sit up a little yesterday. Overall she says she is comfortable. Exam (Progress Note) - Constitutional Vitals: Period Temp Pulse Resp BP Sys/Sosa Pulse Ox Last 24 Hr 96.2 F-99.7 F 68-122 16-20 81-127/48-94 90-99 General appearance: no acute distress (She is comfortable lying in bed.), over weight - Head Head exam: Present: normal inspection, normocephalic - Eye Eye exam: Present: EOMI. Absent: scleral icterus Pupils: Present: PHILLY - ENT ENT exam: Present: normal exam - Neck Neck exam: Absent: lymphadenopathy, thyromegaly - Respiratory Respiratory exam: Present: decreased breath sounds, rhonchi. Absent: accessory muscle use - Cardiovascular Cardiovascular exam: Present: irregular rhythm. Absent: gallop, systolic murmur , tachycardia - GI/Abdominal GI/Abdominal exam: Present: normal bowel sounds, soft. Absent: organomegaly, tenderness - Extremities Exam Extremities exam: Present: edema (Patient has trace edema.), other (She has a swollen right knee). Absent: calf tenderness - Neurological Exam Neurological exam: Present: alert, oriented X3, CN II-XII intact - Psychiatric Psychiatric exam: Present: normal affect, normal mood - Skin Skin exam: Present: warm, dry Results - Labs CBC & BMP: 12/19/16 04:06 12/19/16 04:06 - Diagnostic Findings Procedure: Chest x-ray: image reviewed by me, report reviewed by me (Chest x- ray has cardiomegaly.) Assessment and Plan (1) Ischemic cardiomyopathy Status: Chronic Assessment and plan: The patient has a severely reduced ejection fraction but no signs of heart failure now. Current Visit: No (2) Chronic kidney disease, stage III (moderate) Status: Chronic Assessment and plan: The patient's creatinine is 2.8 Current Visit: Yes (3) Acute on chronic combined systolic (congestive) and diastolic (congestive) heart failure Status: Chronic Assessment and plan: The patient has been treated for heart failure and is doing better now. Current Visit: Yes (4) CAD (coronary artery disease) Status: Chronic Assessment and plan: The patient has a significant ischemic cardiomyopathy. Current Visit: Yes (5) Atrial fibrillation Status: Chronic Assessment and plan: The patient's atrial fibrillation is under control. Current Visit: Yes (6) Sleep disorder Status: Acute Assessment and plan: The patient is being evaluated for sleep disorder. Current Visit: Yes Specialty Discharge - Follow Up or Referrals
[2016-12-19] MEDS: INSULIN LISPRO 100 UNIT/ML SUBCUT SCH ×3 (08:30→17:35)
[2016-12-19] MEDS: POTASSIUM CHLORIDE 20 MEQ TABLET PO SCH (09:53)
[2016-12-19] MEDS: PANTOPRAZOLE 40 MG TABLET PO SCH (09:53)
[2016-12-19] MEDS: APIXABAN 5 MG TABLET PO SCH (09:53)
[2016-12-19] MEDS: ASCORBIC ACID 500 MG TABLET PO SCH (09:53)
[2016-12-19] MEDS: AMIODARONE 200 MG TABLET PO SCH (09:53)
[2016-12-19] MEDS: sitaGLIPtin 25 MG TABLET PO SCH (09:53)
[2016-12-19] MEDS: CARVEDILOL 6.25 MG TABLET PO SCH (09:53)
[2016-12-19] MEDS: DOCUSATE SODIUM 100 MG CAPSULE PO SCH (09:53)
[2016-12-19] MEDS: CLOPIDOGREL 75 MG TABLET PO SCH (09:53)
[2016-12-19] MEDS: FENOFIBRATE 145 MG TABLET PO SCH (09:53)
[2016-12-19] MEDS: INSULIN GLARGINE 100 UNIT/ML SUBCUT SCH (09:55)
--- NOTE | 2016-12-19 10:34 | Discharge Summary ---
Hospital Course - Hospital Course Hospital Course: 61 year old NAF, followed by Dr. Soria. History of ischemic cardiomyopathy, ejection fraction around 15%, was admitted with CHF exacerbation volume overload A. fib RVR. She had a cardioversion several weeks before, but the A. fib prolapse. Cardioversion was attempted again, but the arrhythmia remains persistent. She was hypotensive and required pressor support with dobutamine initially which made the RVR even worse. Digoxin load was initiated, the dobutamine was weaned off. She developed hypercarbia, twitching, sleep and pulmonary consults were obtained. She has ZOLTAN and OHS, and low-dose oxygen supplementation was pursued , fortunately, she does not seem to be a candidate for CPAP. She also has renal dysfunction, was followed by renal. This remained fairly stable. Despite maximal medical efforts, she remained very debilitated and given her severe comorbidities, unlikely to improve. We discussed treatment options, family agrees to proceed with home hospice. -CHF -this improved with rate control, inotropic treatment. Not symptomatic at rest currently. She did not ambulate. Diuretics were held by renal recommendation, will use 40 mg p.o. bid Lasix on discharge, she has severe CKD, with creatinine that stabilized around 2.8 now. She was on 80 mg twice daily Lasix and 5 mg p.o. metolazone before. -Check BMP/magnesium in 2 weeks. If renal function deteriorates, we may need to stop digoxin also -When the dobutamine was weaned off, we will try digoxin for inotropic support and rate control of persistent A. fib. Unfortunately, her renal function is deteriorating, and this had to be stopped. May be an option, if renal function recoveres. At baseline, she is hypotensive 80s, low 90s. -Continue amiodarone, Coreg for rate control of A. fib. The A. fib was refractory to cardioversion on this admission. I suspect long-term rhythm control is unfeasible. She had issues with RVR. given her prognosis, we may continue amiodarone for rate control/palliation, especially that hypotension and severe CKD limits options with caden agents -Continue Eliquis. No bleeding issues at this time -ZOLTAN/OHS-quite severe with central sleep apnea. She had prominent CO2 retention and twitching. Intolerant of CPAP/BiPAP. Avoid high dose pain meds and oxygen. Appreciate assistance from pulmonary and sleep medicine. Use of Diamox was limited by her comorbidities, per pulmonary recommendations, we will continue low-dose. 1 L nasal cannula seemed to be safe during this hospital stay. -CAD- no angina. Continue statin, Plavix -Poor prognosis with severe ICM, CHF NYHA IV, significant comorbidities. 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 -Discharge to home hospice. Prognosis discussed with patient and family. Follow-up with Dr. Soria in 2 weeks, with a BMP/magnesium. 40 minutes spent on discharge. Diagnosis - Discharge Diagnosis (1) Acute on chronic combined systolic (congestive) and diastolic (congestive) heart failure Status: Chronic (2) Atrial fibrillation Status: Chronic (3) Chronic kidney disease, stage III (moderate) Status: Chronic (4) Ischemic cardiomyopathy Status: Chronic (5) Diabetes Status: Chronic (6) Essential hypertension Status: Chronic (7) Former smoker Status: Chronic (8) GERD (gastroesophageal reflux disease) Status: Chronic (9) Hyperlipidemia Status: Chronic (10) Obesity Status: Chronic (11) CAD (coronary artery disease) Status: Chronic (12) Sleep disorder Status: Acute (13) Hypokalemia Status: Acute Specialty Discharge - Follow Up or Referrals Discharge Plan - Discharge Data Disposition: Hospice - Home Condition at Discharge: Guarded Discharge Diet: advance to your usual diet Activity: resume usual activities as tolerated Hygiene: no restrictions Weight Bearing at Discharge: full weight bearing Driving: not for Contact your physician if you experience:: fever over 101, Difficulty voiding, Redness or swelling, Nausea/Vomiting, Shortness of breath, Bleeding, pain uncontrolled by pain medications - Discharge Medications New acetaZOLAMIDE TAB [Diamox Tab] 125 mg PO Q48H #30 tablet Carvedilol [Coreg] 6.25 mg PO BID tablet Acetaminophen Tab [Tylenol Tab] 650 mg PO Q4H PRN #30 tablet PRN Reason: Fever, Headache, Mild Pain Docusate Sodium Cap [Colace Cap] 100 mg PO BID PRN #60 capsule PRN Reason: constipation Continue Saxagliptin HCl [Onglyza] 5 mg PO DAILY Omeprazole [Prilosec] 20 mg PO DAILY Fenofibrate [Tricor] 145 mg PO DAILY Gabapentin 600 mg PO BEDTIME Albuterol Inhaler [Proventil Inhaler] 2 puff INH DAILY PRN PRN Reason: Shortness Of Breath Apixaban [Eliquis] 5 mg PO BID #60 tablet Ascorbic Acid Tab [Vitamin C Tab] 1,000 mg PO DAILY #30 tablet Clopidogrel [Plavix] 75 mg PO DAILY #30 tablet Ascorbic Acid Tab [Vitamin C Tab] 1,000 mg PO DAILY Amiodarone Tab [Cordarone Tab] 200 mg PO BID #60 tablet Insulin Detemir [Levemir FlexPen] 45 unit SUBCUT DAILY Ipratropium/Albuterol Sulfate [Iprat-Albut 0.5-3(2.5) mg/3 ml] 3 ml IH Q4H PRN PRN Reason: Shortness Of Breath Simvastatin 40 mg PO BEDTIME Discontinued metOLazone [Metolazone] 5 mg PO DAILY Omeprazole 20 mg PO DAILY Potassium Chloride Cap/Tab [K Dur] 20 meq PO BID Aspirin EC Tab 81 mg PO DAILY #30 tablet Furosemide 80 mg PO BID - Follow Up or Referral Follow Up: Garrick Soria MD [Physician] - 2 Weeks (Check BMP/Mg) - Forms/Instructions Forms: Acute Care Work/School Release Additional Discharge Instructions: Continue oxygen 1 L nasal cannula at home Exam - Constitutional Vitals: Period Temp Pulse Resp BP Sys/Sosa Pulse Ox Last 24 Hr 96.5 F-99.7 F 68-122 16-20 81-127/50-94 86-99 General appearance: no acute distress, morbidly obese - Head Head exam: Present: normal inspection. Absent: contusion - Eye Eye exam: Absent: periorbital swelling, scleral icterus Pupils: Absent: dilated - ENT ENT exam: Present: normal external ear exam - Neck Neck exam: Present: normal inspection, other (Unable to assess JVD due to obesity) - Respiratory Respiratory exam: Present: clear to auscultation bilaterally. Absent: chest wall tenderness, rhonchi, wheezes - Cardiovascular Cardiovascular exam: Present: irregular rhythm, JVD. Absent: systolic murmur, tachycardia - GI/Abdominal GI/Abdominal exam: Present: normal bowel sounds. Absent: distended, firm - Extremities Exam Extremities exam: Present: normal inspection, normal capillary refill, edema (2+ ) - Neurological Exam Neurological exam: Present: alert - Psychiatric Psychiatric exam: Present: normal affect, normal mood - Skin Skin exam: Present: normal color, warm. Absent: cyanosis Discharge Results Procedures and tests throughout hospitalization: Pending Orders 12/20/16 04:00 BMP w/ Mg [Basic Metabolic Panel w/Mg] IN AM CBC [Comp Blood Count Auto Diff] IN AM Labs on day of discharge: Labs from last 24 hours 12/19/16 12/19/16 12/19/16 07:19 04:06 04:06 WBC 12.7 H RBC 4.16 Hgb 12.2 Hct 36.9 MCV 88.7 MCH 29 MCHC 33.1 RDW 14.2 Plt Count 414 H MPV 11.2 Neut % (Auto) 80.4 H Lymph % (Auto) 9.9 L Swift % (Auto) 8.8 Eos % (Auto) 0.2 Baso % (Auto) 0.2 Neut # (Auto) 10.2 H Lymph # (Auto) 1.3 L Swift # (Auto) 1.1 H Eos # (Auto) 0.0 Baso # (Auto) 0.0 Immature Gran % 0.5 Nucleated RBC % 0.0 Immature Gran # 0.06 Nucleated RBCs # 0.00 Immature Plt Fraction 0.0 Sodium 136 Potassium 3.8 Chloride 87 L Carbon Dioxide 44 H Anion Gap 8.8 BUN 86 H Creatinine 2.80 H GFR Calculation 23 BUN/Creatinine Ratio 30.00 H Glucose 134 H POC Glucose 103 Calculated Osmolality 299.0 Calcium 8.2 L Magnesium 2.9 H 12/18/16 12/18/16 12/18/16 20:59 16:48 11:21 WBC RBC Hgb Hct MCV MCH MCHC RDW Plt Count MPV Neut % (Auto) Lymph % (Auto) Swift % (Auto) Eos % (Auto) Baso % (Auto) Neut # (Auto) Lymph # (Auto) Swift # (Auto) Eos # (Auto) Baso # (Auto) Immature Gran % Nucleated RBC % Immature Gran # Nucleated RBCs # Immature Plt Fraction Sodium Potassium Chloride Carbon Dioxide Anion Gap BUN Creatinine GFR Calculation BUN/Creatinine Ratio Glucose POC Glucose 93 156 H 203 H Calculated Osmolality Calcium Magnesium - Imaging and Cardiology Cardiology Procedure: image reviewed by me, report reviewed by me DS: Provider Date of admission: 12/08/16 09:35 Primary care physician: Fahad Giraldo MD Attending physician on admission: Garrick Soria MD Consults: 12/08/16 09:35 Consult to Physician [CONS] Routine Comment: progressive renal failure with recurrent CHF Consulting Provider: Castillo,Roberto When should Consulting Provider be notified: Now Person Notified: Abida Date Notified: 12/08/16 Consult Notification Comment: Abida notified per Caitlin Tabares RN. 12/12/16 08:24 Consult to Physical Therapy [CONS] Routine Reason for Physical Therapy: Evaluate and Treat Other Consult Comment: These prevention of weakness while a lot of bed rest. 12/12/16 08:53 Consult to Physician [CONS] Routine Comment: Posttraumatic right knee pain Consulting Provider: [facility] Consulting Provider Notified: No When should Consulting Provider be notified: Now 12/14/16 15:10 Consult to Sleep Center [CONS] Routine Reason for Sleep Center: Sleep Center Physician Consult Comment: hypercapnea, sleep disorder, hypoventilation syndrome, ICMO , CHF, CAD 12/14/16 19:19 Consult to Physician [CONS] Routine Comment: Consulting Provider: Consult to Specialist Group: Pulmonology When should Consulting Provider be notified: In am Consult Notification Comment: Susp. OHS 12/15/16 08:34 Consult to Physician [CONS] Routine Comment: metabolic alkalosis, obesity-hypoventilation, CHF Consulting Provider: Rod Moss Consult to Specialist Group: Pulmonology Person Notified: Dara Date Notified: 12/15/16 Time Notified: 09:40 12/16/16 10:00 Consult to Case Mgmt/Social Srvs [CONS] Routine Reason for Case Mgmt/Social Srvs: Discharge Planning Consult Comment: eval for poss hospice Discharging clinician: Lionel Espinoza MD Expected date of discharge: 12/19/16
--- NOTE | 2016-12-19 14:05 | Nephrology Progress Note ---
Nephrology - PN: Subj Interval history: She denies shortness of breath or chest pain Exam (PN)-Nephrology - Vital Signs Vital signs: Period Temp Pulse Resp BP Sys/Sosa Pulse Ox Last 24 Hr 97.1 F-99.7 F 68-122 16-20 81-127/50-94 86-99 Exam: ENT: Normal Cardiovascular: Regular rate and rhythm. No murmur rub or gallop Lungs: Clear Extremities: 2+ edema - Lab 12/19/16 04:06 12/19/16 04:06 Most recent lab results ABG pH 7.531 (7.35-7.45) H 12/14/16 18:25 ABG pCO2 58.8 MM HG (35-48) H 12/14/16 18:25 ABG pO2 52.6 MM HG (80-95) L 12/14/16 18:25 ABG HCO3 46.4 MMOL/L (20-26) H 12/14/16 18:25 ABG O2 Saturation 87.7 % (95-100) L 12/14/16 18:25 Calcium 8.2 MG/DL (8.5-10.1) L 12/19/16 04:06 Magnesium 2.9 MG/DL (1.8-2.4) H 12/19/16 04:06 Assessment and Plan (1) Chronic kidney disease, stage III (moderate) Status: Chronic Assessment and plan: 61-year-old woman with: * Ischemic cardiomyopathy. Ejection fraction 15-20% * Atrial fibrillation. Status post unsuccessful cardioversion * CRF 3. * ARF. Creatinine slightly better today * Diabetes mellitus * Obesity Current Visit: Yes (2) ARF (acute renal failure) Status: Acute Current Visit: Yes (3) Ischemic cardiomyopathy Status: Chronic Current Visit: No (4) Status post coronary artery stent placement Status: Acute Current Visit: No (5) Diabetes Status: Chronic Current Visit: No Qualifiers: Diabetes mellitus type: type 2 (6) Obesity Status: Chronic Current Visit: No Qualifiers: Body mass index: BMI 40.0-44.9 (7) Atrial fibrillation with RVR Status: Resolved Current Visit: No Specialty Discharge - Follow Up or Referrals Follow up with: Garrick Soria MD [Physician] - 2 Weeks (Check BMP/Mg)
[2016-12-19] MEDS ORDERED: FUROSEMIDE 40 MG TABLET PO SCH ×2 (16:00→21:00)
[2016-12-19 16:51] VITALS: BP 101/57
[2016-12-20] MEDS ORDERED: FUROSEMIDE 40 MG TABLET PO SCH (09:00)
== END 2016-12-19 17:44 | disposition hospice, home (50) | DRG 291 ==
LOC: N.CL 07:15 → N.TELES 09:35
PROVIDERS: ADMIT Internal Medicine Cardiovascular Disease; ATTEND Internal Medicine Cardiovascular Disease